=== PATIENT | female | born 1965 | race Caucasian/White ===

== ENCOUNTER 2019-04-03 18:25 | Emergency (ER) | payer MEDICARE, MEDICAID, SELFPAY ==
[2019-04-03 18:28] VITALS: BP 157/92; PULSE 65; RESP 16; TEMP 36.8; O2SAT 97; BMI 30.7
--- NOTE | 2019-04-03 18:37 | CTR_ITS ---
PROCEDURE INFORMATION: Exam: CT Head Without Contrast Exam date and time: 04/03/2019 6:48 PM Age: 53 years old Clinical indication: Weakness, extremity; Left; Additional info: [place] and left arm numbness TECHNIQUE: Imaging protocol: Computed tomography of the head without contrast. Total DLP: 826.82 mGy-cm Radiation optimization: All CT scans at this facility use at least one of these dose optimization techniques: automated exposure control; mA and/or kV adjustment per patient size (includes targeted exams where dose is matched to clinical indication); or iterative reconstruction. COMPARISON: CT head wo con* [id number] 10/02/2017 8:28 AM FINDINGS: Brain: Mild cortical volume loss. Small lacunar infarct in subcortical white matter of the right frontal lobe. Lung hypodensities in supratentorial white matter. Ventricles: Normal. No ventriculomegaly. Bones/joints: Unremarkable. No acute fracture. Sinuses: Visualized sinuses are unremarkable. No fluid levels. Mastoid air cells: Visualized mastoid air cells are well aerated. Soft tissues: Unremarkable. Vasculature: No hyperdense artery. CT/CT head wo con* [id number] IMPRESSION: 1. No acute intracranial abnormality. 2. Mild microangiopathy. Radiation Dose CTDIVOL = (mGy): DLP = 826.82 (mGy-cm)
--- NOTE | 2019-04-03 18:37 | ECG_ITS ---
Measurements Intervals [place] Rate: 60 P: 33 MT: 166 QRS: 20 QRSD: 96 T: 31 QT: 420 QTc: 421 SINUS RHYTHM Compared to ECG 02/27/2016 10:51:11 No significant changes Electronically Signed On 04-04-2019 9:23:46 FINISH SANDER by Chandan Ozuna M.D. [email or web address]
--- NOTE | 2019-04-03 18:37 | XRR_ITS ---
PROCEDURE INFORMATION: Exam: XR Chest, 1 View Exam date and time: 04/03/2019 6:38 PM Age: 53 years old Clinical indication: Shortness of breath; Additional info: Admission TECHNIQUE: Imaging protocol: XR of the chest Views: 1 view. COMPARISON: CR Chest 2 views* [id number] 05/14/2016 9:55 AM FINDINGS: Lungs: Unremarkable. No consolidation. Pleural space: Unremarkable. No pleural effusion. No pneumothorax. Heart/Mediastinum: Unremarkable. No cardiomegaly. Bones/joints: The stimulator lead projects over the mid thoracic spine. C-spine hardware. XR/XR chest 1V portable [id number] IMPRESSION: No acute findings.
--- NOTE | 2019-04-03 18:39 | W.ED.GENADLT ---
HPI - General Adult General: Chief complaint: General Medical Stated complaint: HEADACHE; ABD PAIN; CHEST PAIN Time Seen by Provider: 04/03/19 18:31 History of Present Illness: HPI narrative: Patient arrived via EMS. Patient states she was out walking her dog which was a new dog for her today and came back and was cutting some form out for his bed and then she started to have a headache and got nauseated and felt diaphoretic denies shortness of breath chest pain. Did check her blood pressure blood pressure elevated 140/120. [place] nauseated. Left arm felt numb. Has had the symptoms before with but without being overwhelmed by them. MD complaint: htn Onset (ago): hour(s) Severity: moderate Associated symptoms: Reports diaphoresis and headache(s); Deny chest pain, dyspnea, nausea, rash or vomiting Review of Systems Const: Reports: diaphoresis and other (Weakness); Denies: fever, chills or body aches Eyes: Denies: change in vision or blurry vision ENMT: Denies: throat pain or nasal congestion Card: Reports: lightheadedness and other (Hypertension); Denies: chest pain or shortness of breath on exertion Resp: Denies: shortness of breath, productive cough or non-productive cough GI: Denies: abdominal pain, nausea or vomiting Musc: Denies: extremity pain Skin/Breast: Denies: rash Neuro: Reports: headache and numbness in extremities (Left arm) Psych: Denies: anxiety or depression Lanre/Lymph: Denies: easy bruising PFSH ED PFSH: Statuses (acute, chronic, etc) shown below reflect problem list status as previously entered and may not be historically accurate Family History (Updated 03/16/19 @ 13:23 by Jeff Mart LPN) Mother Hypertension Father Myocardial infarct Social History (Updated 03/16/19 @ 13:24 by Jeff Mart LPN) Smoking and tobacco status: former smoker Quit status (tobacco): has quit using tobacco Alcohol intake: current Alcohol intake frequency: few times a month Physical Exam Const: COMMON NORMALS: no apparent distress, average body habitus and oriented x3 HENMT: COMMON NORMALS: normocephalic HEAD & SCALP: normal to inspection and normocephalic FACE & SINUS: normal facial exam Eye: COMMON NORMALS: conjunctivae normal GENERAL EYE: normal appearance of both eyes CONJUNCTIVA: Yes conjunctivae normal Neck/C-Spine: COMMON NORMALS: no JVD Chest: COMMONS NORMALS: inspection of chest normal Resp: COMMON NORMALS: normal respiratory effort and clear to auscultation bilaterally AUSCULTATION: clear to auscultation bilaterally Cardio: COMMON NORMALS: no JVD, regular rate and regular rhythm RATE: regular rate RHYTHM: regular rhythm GI: COMMON NORMALS: normal to inspection, nondistended, normoactive bowel sounds Extremity: COMMON NORMALS: normal to inspection and full ROM Neuro: COMMON NORMALS: oriented x3, CN's II-XII intact bilaterally, moves all extremities and no sensory deficits noted SPEECH: speech normal MOTOR EXAM: strength 5/5 throughout Course Vital Signs: Vital signs: Vital Signs Temperature 98.2 F 04/03/19 18:28 Pulse Rate 65 04/03/19 18:28 Respiratory Rate 16 04/03/19 18:28 Blood Pressure 157/92 04/03/19 18:28 Pulse Oximetry 97 04/03/19 18:[address] [facility] - General Adult Lab Data: Labs: Lab Results 04/03/19 Range/Units 17:25 WBC 8.8 (4.0-10.0) 10^3/ uL RBC 4.70 (4.1-5.3) 10^6/u L Hgb 12.6 (11.5-15.3) g/dL Hct 38.5 (37.0-47.0) % MCV 81.9 (81-99) fL MCH 26.8 L (28.0-34.0) pg MCHC 32.7 (30.0-36.0) g/dL RDW 13.7 (12.1-15.1) % Plt Count 312 (130-400) 10^3/c mm MPV 11.3 H (7.4-10.4) fL Neut % (Auto) 45.3 % Lymph % (Auto) 45.1 % Hand % (Auto) 6.5 % Eos % (Auto) 1.9 % Baso % (Auto) 0.9 % Neut # (Auto) 4.0 (1.8-7.7) 10^3/u L Lymph # (Auto) 4.0 (0.8-4.8) 10^3/u L Hand # (Auto) 0.6 (0.2-0.9) 10^3/u L Eos # (Auto) 0.2 (0.0-0.8) 10^3/u L Baso # (Auto) 0.1 (0.0-0.1) 10^3/u L Nucleated RBC % (a uto) 0 % Nucleated RBCs # 0.0 /100WBC EKG Data^: EKG 1: EKG interpretation date: 04/03/19 EKG interpretation time: 18:42 Interpretation: NSR Discharge Plan Discharge Prescriptions: No Action gabapentin 300 mg capsule 300 mg PO TID RF: 0 epinephrine [EpiPen 2-Job] 0.3 mg/0.3 mL auto-injector 0.3 mg IM ONCE PRNRF: 0 ranitidine HCl 150 mg capsule 150 mg PO BID RF: 0 fluticasone propionate [Allergy Relief (fluticasone)] 50 mcg/actuation spray,suspension 1 spray INTRANASAL BID RF: 0 ropinirole 0.5 mg tablet 0.5 mg PO ONCE RF: 0 nitroglycerin [Nitrostat] 0.4 mg tablet, sublingual 0.4 mg SUBLINGUAL Q5M PRNRF: 0 sucralfate [Carafate] 1 gram tablet 1 gm PO .COMPLEX RF: 0 celecoxib [Celebrex] 100 mg capsule 100 mg PO BID RF: 0 albuterol sulfate [ProAir HFA] 90 mcg/actuation HFA aerosol inhaler 2 puff INHALATION Q6H PRNRF: 0 metoprolol succinate 25 mg tablet extended release 24 hr 12.5 mg PO BID RF: 0 esomeprazole magnesium 40 mg capsule,delayed release(DR/EC) 40 mg PO ONCE RF: 0 aspirin 325 mg tablet 325 mg PO ONCE RF: 0 venlafaxine 75 mg tablet 75 mg PO ONCE RF: 0 omega-3 fatty acids [Fish Oil Concentrate] 1,000 mg capsule 1,000 mg PO BID RF: 0 tizanidine 4 mg capsule 4 mg PO ONCE PRNRF: 0 hydrocodone-acetaminophen 7.5-325 mg tablet 1 tab PO Q6H PRNRF: 0 montelukast [Singulair] 10 mg tablet 10 mg PO DAILY Qty: 90 RF: 1 Coding Level of Care Code ED 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
[2019-04-03 18:47] LABS: Basophils # 0.1 10^3/uL (0.0-0.1); Basophils % 0.9 %; Eosinophils # 0.2 10^3/uL (0.0-0.8); Eosinophils % 1.9 %; Hematocrit 38.5 % (37.0-47.0); Hemoglobin 12.6 g/dL (11.5-15.3); Lymphocytes % 45.1 %; Mean Corpuscular HGB Conc 32.7 g/dL (30.0-36.0); Mean Corpuscular Hemoglobin 26.8 pg (28.0-34.0); Mean Corpuscular Volume 81.9 fL (81-99); Mean Platelet Volume 11.3 fL (7.4-10.4); Monocytes # 0.6 10^3/uL (0.2-0.9); Monocytes % 6.5 %; Neutrophils % 45.3 %; Nucleated Red Blood Cells % 0 %; Platelet Count 312 10^3/cmm (130-400); Red Cell Distribution Width 13.7 % (12.1-15.1); White Blood Count 8.8 10^3/uL (4.0-10.0)
--- NOTE | 2019-04-03 19:27 | PC.NURSE ---
PT WAITING CT RESULTS. URINE SAMPLE TAKEN TO LAB.
[2019-04-03] MEDS: acetaminophen 500 mg Tablet 1000 MG PO (19:31)
[2019-04-03 20:22] LABS: Glucose Urine UA Norm (Normal); Protein Urine Trace (Negative); Urine Appearance Cloudy (CLEAR); Urine Color Yellow (Yellow); pH Urine 5 (5-7)
[2019-04-03 20:23] LABS: Add Urine Microscopic? YES; Bilirubin Urine 1+ (NEGATIVE); Blood Urine Neg (Negative); Ketones Urine Negative (Negative); Leukocyte Esterase Urine Negative (Negative); Nitrate Urine Negative (Negative); Urobilinogen Urine 1 mg/dL (Negative)
[2019-04-03] MEDS: diphenhydrAMINE 50 mg/mL SDV 1mL 25 MG IVP (20:25)
[2019-04-03 20:26] LABS: Add Urine Culture? No; Bacteria Urine 1+; Mucus Urine 2+; Squamous Epithelial Cell Urine 0-4 (0-5); WBC Urine 0-4 /hpf (0-5)
[2019-04-03] MEDS: metoclopramide 5 mg/mL SDV 2 mL IVP (20:26)
[2019-04-03 20:27] LABS: Alanine Aminotransferase 30 U/L (0-33); Albumin Level 4.6 g/dL (3.5-5.2); Alkaline Phosphatase 129 IU/L (35-105); Anion Gap 17.3 (5-19); Aspartate Amino Transferase 31 U/L (0-32); Blood Urea Nitrogen 8 mg/dL (6-20); Calcium 10.1 mg/Dl (8.6-10.0); Carbon Dioxide 23 mmol/L (22-29); Chloride 103 mmol/L (98-107); Globulin 2.2 g/dL (1.3-4.6); Glomerular Filtration Rate 88.2 mL/min (90-130); Glucose 99 mg/dL (74-109); Lipase 18 U/L (13-60); Potassium 3.3 mmol/L (3.5-5.1); Sodium 140 mmol/L (136-145); Total Bilirubin 0.4 mg/dL (0.15-1.2); Total Protein 6.8 g/dL (6.6-8.7)
[2019-04-03 20:46] LABS: Troponin T (5th) Once 10 ng/mL (0-10)
[2019-04-03 21:08] VITALS: BP 122/83; PULSE 87; RESP 18; O2SAT 97
== END 2019-04-03 21:09 | disposition home or self-care (01) ==
PROVIDERS: Emergency Provider Nurse Practitioner Family; Family Provider Registered Nurse; PCP Registered Nurse
DX: R51 Headache (principal); R10.9 Unspecified abdominal pain; R07.9 Chest pain, unspecified; Z79.82 Long term (current) use of aspirin; Z87.891 Personal history of nicotine dependence
CPT/HCPCS: 70450; 71045; 80053; 81003; 83690; 84484; 85025; 93005; 96374; 99281; A9270; J1200; J2765

== ENCOUNTER → 2019-04-07 09:05 | Outpatient (BNVA) | payer MEDICARE, MEDICAID, SELFPAY | PROVIDERS: Family Provider Registered Nurse; PCP Registered Nurse; Visit Provider Nurse Practitioner Family | DX: E87.6 Hypokalemia (principal) | CPT/HCPCS: 80048 ==

== ENCOUNTER → 2019-05-10 09:31 | Outpatient (BNVA) | payer MEDICARE, MEDICAID, SELFPAY | PROVIDERS: Family Provider Registered Nurse; PCP Registered Nurse; Visit Provider Nurse Practitioner Psychiatric/Mental Health | DX: F33.2 Major depressive disorder, recurrent severe without psychotic features (principal); F41.0 Panic disorder [episodic paroxysmal anxiety]; F43.12 Post-traumatic stress disorder, chronic; Z79.899 Other long term (current) drug therapy | CPT/HCPCS: 80053; 80061; 83036; 84443; 85025; 99214 ==

== ENCOUNTER → 2019-07-07 08:20 | Outpatient (BNVA) | payer MEDICARE, MEDICAID, SELFPAY | PROVIDERS: Family Provider Registered Nurse; PCP Registered Nurse; Visit Provider Nurse Practitioner Psychiatric/Mental Health | DX: F33.2 Major depressive disorder, recurrent severe without psychotic features (principal); F41.0 Panic disorder [episodic paroxysmal anxiety]; F43.12 Post-traumatic stress disorder, chronic; Z63.79 Other stressful life events affecting family and household | CPT/HCPCS: 99214 ==

== ENCOUNTER → 2019-08-04 07:40 | Outpatient (BNVA) | payer MEDICARE, MEDICAID, SELFPAY | PROVIDERS: Family Provider Registered Nurse; PCP Registered Nurse; Visit Provider Nurse Practitioner Psychiatric/Mental Health | DX: F33.2 Major depressive disorder, recurrent severe without psychotic features (principal); F41.0 Panic disorder [episodic paroxysmal anxiety]; F43.12 Post-traumatic stress disorder, chronic; Z63.79 Other stressful life events affecting family and household; Z91.5 Personal history of self-harm | CPT/HCPCS: 99214 ==

== ENCOUNTER → 2019-08-23 08:12 | Outpatient (BNVA) | payer MEDICARE, MEDICAID, SELFPAY | PROVIDERS: Family Provider Registered Nurse; PCP Registered Nurse; Visit Provider Social Worker Clinical | DX: F33.2 Major depressive disorder, recurrent severe without psychotic features (principal); F40.01 Agoraphobia with panic disorder | CPT/HCPCS: 90791 ==

== ENCOUNTER → 2019-09-06 08:08 | Outpatient (BNVA) | payer MEDICARE, MEDICAID, SELFPAY | PROVIDERS: Family Provider Registered Nurse; PCP Registered Nurse; Visit Provider Social Worker Clinical | DX: F43.12 Post-traumatic stress disorder, chronic (principal); F41.0 Panic disorder [episodic paroxysmal anxiety]; F33.2 Major depressive disorder, recurrent severe without psychotic features; Z91.5 Personal history of self-harm | CPT/HCPCS: 90834 ==

== ENCOUNTER → 2019-09-15 08:26 | Outpatient (BNVA) | payer MEDICARE, MEDICAID, SELFPAY | PROVIDERS: Family Provider Registered Nurse; PCP Registered Nurse; Visit Provider Social Worker Clinical | DX: F43.12 Post-traumatic stress disorder, chronic (principal); F41.0 Panic disorder [episodic paroxysmal anxiety]; F33.2 Major depressive disorder, recurrent severe without psychotic features | CPT/HCPCS: 90834 ==

== ENCOUNTER → 2019-10-12 08:09 | Outpatient (BNVA) | payer MEDICARE, MEDICAID, SELFPAY | PROVIDERS: Family Provider Registered Nurse; PCP Registered Nurse; Visit Provider Social Worker Clinical | DX: F43.12 Post-traumatic stress disorder, chronic (principal); F41.0 Panic disorder [episodic paroxysmal anxiety]; F33.2 Major depressive disorder, recurrent severe without psychotic features | CPT/HCPCS: 90834 ==

== ENCOUNTER → 2020-04-11 10:29 | Outpatient (BNVA) | payer MEDICARE, MEDICAID, SELFPAY | PROVIDERS: Family Provider Registered Nurse; PCP Registered Nurse; Visit Provider Registered Nurse | DX: R30.0 Dysuria (principal); A49.9 Bacterial infection, unspecified; N39.0 Urinary tract infection, site not specified; N89.8 Other specified noninflammatory disorders of vagina; B37.3 Candidiasis of vulva and vagina | CPT/HCPCS: 81000; 87077; 87086; 87184 ==

== ENCOUNTER → 2020-05-18 11:20 | Outpatient (BNVA) | payer MEDICARE, MEDICAID, SELFPAY | PROVIDERS: Family Provider Registered Nurse; PCP Registered Nurse; Visit Provider Specialist | DX: G43.709 Chronic migraine without aura, not intractable, without status migrainosus (principal); Z87.891 Personal history of nicotine dependence | CPT/HCPCS: 99204 ==

== ENCOUNTER → 2020-05-30 07:37 | Outpatient (BNVA) | payer MEDICARE, MEDICAID, SELFPAY | PROVIDERS: Family Provider Registered Nurse; PCP Registered Nurse; Visit Provider Nurse Practitioner Psychiatric/Mental Health | DX: F33.2 Major depressive disorder, recurrent severe without psychotic features (principal); F41.0 Panic disorder [episodic paroxysmal anxiety]; F43.12 Post-traumatic stress disorder, chronic; F17.210 Nicotine dependence, cigarettes, uncomplicated; Z91.5 Personal history of self-harm; Z79.899 Other long term (current) drug therapy | CPT/HCPCS: 99214 ==

== ENCOUNTER → 2020-06-15 14:35 | Outpatient (BNVA) | payer MEDICARE, MEDICAID, SELFPAY | PROVIDERS: Family Provider Registered Nurse; PCP Registered Nurse; Visit Provider Social Worker Clinical | DX: F43.12 Post-traumatic stress disorder, chronic (principal); F41.0 Panic disorder [episodic paroxysmal anxiety]; F33.2 Major depressive disorder, recurrent severe without psychotic features | CPT/HCPCS: 90834 ==

== ENCOUNTER → 2020-06-27 07:34 | Outpatient (BNVA) | payer MEDICARE, MEDICAID, SELFPAY | PROVIDERS: Family Provider Registered Nurse; PCP Registered Nurse; Visit Provider Nurse Practitioner Psychiatric/Mental Health | DX: F33.2 Major depressive disorder, recurrent severe without psychotic features (principal); F41.0 Panic disorder [episodic paroxysmal anxiety]; F43.12 Post-traumatic stress disorder, chronic; F17.210 Nicotine dependence, cigarettes, uncomplicated; Z91.5 Personal history of self-harm; Z79.899 Other long term (current) drug therapy | CPT/HCPCS: 99214 ==

== ENCOUNTER → 2020-07-20 10:25 | Outpatient (BNVA) | payer MEDICARE, MEDICAID, SELFPAY | PROVIDERS: Family Provider Registered Nurse; PCP Registered Nurse; Visit Provider Nurse Practitioner Psychiatric/Mental Health | DX: Z79.899 Other long term (current) drug therapy (principal); Z01.89 Encounter for other specified special examinations | CPT/HCPCS: 80053; 80061; 83036 ==

== ENCOUNTER → 2020-07-25 10:44 | Outpatient (BNVA) | payer MEDICARE, MEDICAID, SELFPAY | PROVIDERS: Family Provider Registered Nurse; PCP Registered Nurse; Visit Provider Social Worker Clinical | DX: F33.2 Major depressive disorder, recurrent severe without psychotic features (principal); F41.0 Panic disorder [episodic paroxysmal anxiety]; F43.12 Post-traumatic stress disorder, chronic | CPT/HCPCS: 90834 ==

== ENCOUNTER → 2020-08-21 12:40 | Outpatient (BNVA) | payer MEDICARE, MEDICAID, SELFPAY | PROVIDERS: Family Provider Registered Nurse; PCP Registered Nurse; Visit Provider Social Worker Clinical | DX: F43.12 Post-traumatic stress disorder, chronic (principal); F33.2 Major depressive disorder, recurrent severe without psychotic features; F40.01 Agoraphobia with panic disorder | CPT/HCPCS: 90791 ==

== ENCOUNTER → 2020-08-22 08:20 | Outpatient (BNVA) | payer MEDICARE, MEDICAID, SELFPAY | PROVIDERS: Family Provider Registered Nurse; PCP Registered Nurse; Visit Provider Nurse Practitioner Psychiatric/Mental Health | DX: F33.2 Major depressive disorder, recurrent severe without psychotic features (principal); F41.0 Panic disorder [episodic paroxysmal anxiety]; F43.12 Post-traumatic stress disorder, chronic; Z91.5 Personal history of self-harm; Z79.899 Other long term (current) drug therapy; F17.210 Nicotine dependence, cigarettes, uncomplicated | CPT/HCPCS: 99214 ==

== ENCOUNTER → 2020-09-26 07:16 | Outpatient (BNVA) | payer MEDICARE, MEDICAID, SELFPAY | PROVIDERS: Family Provider Registered Nurse; PCP Registered Nurse; Visit Provider Nurse Practitioner Psychiatric/Mental Health | DX: F33.2 Major depressive disorder, recurrent severe without psychotic features (principal); F41.0 Panic disorder [episodic paroxysmal anxiety]; F43.12 Post-traumatic stress disorder, chronic; F17.210 Nicotine dependence, cigarettes, uncomplicated; Z91.5 Personal history of self-harm; Z79.899 Other long term (current) drug therapy | CPT/HCPCS: 99214 ==

== ENCOUNTER → 2021-03-27 08:15 | Outpatient (BNVA) | payer MEDICARE, MEDICAID, SELFPAY | PROVIDERS: Family Provider Registered Nurse; PCP Registered Nurse; Visit Provider Nurse Practitioner Psychiatric/Mental Health | DX: F33.2 Major depressive disorder, recurrent severe without psychotic features (principal); F41.0 Panic disorder [episodic paroxysmal anxiety]; F43.12 Post-traumatic stress disorder, chronic; F17.210 Nicotine dependence, cigarettes, uncomplicated | CPT/HCPCS: 99214 ==

== ENCOUNTER → 2021-05-01 08:27 | Outpatient (BNVA) | payer MEDICARE, MEDICAID, SELFPAY | PROVIDERS: Family Provider Registered Nurse; PCP Registered Nurse; Visit Provider Nurse Practitioner Psychiatric/Mental Health | DX: F33.2 Major depressive disorder, recurrent severe without psychotic features (principal); F41.0 Panic disorder [episodic paroxysmal anxiety]; F43.12 Post-traumatic stress disorder, chronic; F17.210 Nicotine dependence, cigarettes, uncomplicated | CPT/HCPCS: 99214 ==

== ENCOUNTER → 2021-06-07 09:39 | Outpatient (BNVA) | payer MEDICARE, MEDICAID, SELFPAY | PROVIDERS: Family Provider Registered Nurse; PCP Registered Nurse; Visit Provider Registered Nurse | DX: R10.9 Unspecified abdominal pain (principal); N20.0 Calculus of kidney | CPT/HCPCS: 81000 ==

== ENCOUNTER 2021-06-11 07:57 | Outpatient (CLI) | payer MEDICARE, MEDICAID, SELFPAY ==
--- NOTE | 2021-06-11 08:30 | CT_ITS ---
WS: [id number] CT ABDOMEN PELVIS TECHNIQUE: Noncontrast CT of the abdomen and pelvis with coronal and sagittal reformatted images. CLINICAL INFORMATION: N20.0 - Calculus of kidney COMPARISON: CT 4 DLP: 1085.[address] scans at [facility] use at least one of these dose optimization techniques: automated e xposure control; mA and/or kV adjustment per patient size (includes targeted exams where dose is matc hed to clinical indication); or iterative reconstruction. FINDINGS: Noncontrast liver is normal. Prior cholecystectomy. Lung bases are well aerated. Normal noncontrast s pleen. Small esophageal hiatal hernia. Adrenal glands are normal. No hydronephrosis in either kidney. No obstructing renal or ureteral calculi. Pelvic phleboliths. RIGHT ALBERT degrades some images in the pelvis. Normal sigmoid colon. Normal appendix in the RIGHT lowe r quadrant. Inspissated secretions in the proximal appendix. Bony fusion L5-S1. Slight anterolisthesis L4 on L5. Posterior element fusion L5-S1. CT/CT kidney stone [id number] IMPRESSION: 1. No obstructing renal or ureteral calculi. No hydronephrosis in either kidne y. 2. Prior cholecystectomy. 3. Normal caliber abdominal aorta. 4. Small esophageal hiatal hernia. 5. Prior postoperative changes posterior element fusion L5-S1. Grade 1 anterol isthesis L4 on L5 measuring 4 mm increased compared to 2008.
== END 2021-06-11 07:58 | disposition home or self-care (01) ==
PROVIDERS: PCP Registered Nurse; Visit Provider Registered Nurse
DX: N20.0 Calculus of kidney (principal); Z90.49 Acquired absence of other specified parts of digestive tract; K44.9 Diaphragmatic hernia without obstruction or gangrene
CPT/HCPCS: 74176

== ENCOUNTER → 2021-06-12 14:44 | Outpatient (BNVA) | payer MEDICARE, MEDICAID, SELFPAY | PROVIDERS: Family Provider Registered Nurse; PCP Registered Nurse; Visit Provider Nurse Practitioner Psychiatric/Mental Health | DX: F33.2 Major depressive disorder, recurrent severe without psychotic features (principal); F41.0 Panic disorder [episodic paroxysmal anxiety]; F43.12 Post-traumatic stress disorder, chronic; F17.210 Nicotine dependence, cigarettes, uncomplicated | CPT/HCPCS: 99214 ==

== ENCOUNTER 2021-06-21 14:34 | Outpatient (CLI) | payer MEDICARE, MEDICAID, SELFPAY ==
--- NOTE | 2021-06-21 14:44 | MM_ITS ---
WS: [id number] BILATERAL SCREENING 3D TOMOSYNTHESIS DIGITAL MAMMOGRAM WITH CAD HISTORY: SCREENING COMPARISON: 02/04/2019 and 11/25/2016 Bilateral CC and MLO views submitted. Computer aided detection analyzed. Breast composition: The breasts are extremely dense, which lowers the sensitivity of mammography. No suspicious masses, microcalcifications or architectural distortion. Asymmetries and partially obscure d nodules are stable throughout each breast. There are benign calcifications also. MM/[place] [id number] IMPRESSION: BI-RADS: 2-Benign FOLLOW UP: 1 Year Follow-up
== END 2021-06-21 14:35 | disposition home or self-care (01) ==
LOC: RADSHAW 14:37
PROVIDERS: PCP Registered Nurse; Visit Provider Registered Nurse
DX: Z12.31 Encounter for screening mammogram for malignant neoplasm of breast (principal)
CPT/HCPCS: 77063; 77067

== ENCOUNTER → 2021-07-10 09:28 | Outpatient (BNVA) | payer MEDICARE, MEDICAID, SELFPAY | PROVIDERS: PCP Registered Nurse; Visit Provider Nurse Practitioner Family | DX: I47.1 Supraventricular tachycardia (principal); I10 Essential (primary) hypertension; Q24.5 Malformation of coronary vessels; Z87.891 Personal history of nicotine dependence; Z79.82 Long term (current) use of aspirin | CPT/HCPCS: 93005; 99214 ==

== ENCOUNTER → 2021-08-21 13:46 | Outpatient (BNVA) | payer MEDICARE, MEDICAID, SELFPAY | PROVIDERS: PCP Registered Nurse; Referring Provider Registered Nurse; Visit Provider Podiatrist Foot & Ankle Surgery | DX: M21.611 Bunion of right foot (principal); M21.612 Bunion of left foot; M20.41 Other hammer toe(s) (acquired), right foot; R20.2 Paresthesia of skin; M20.42 Other hammer toe(s) (acquired), left foot; M79.671 Pain in right foot; M79.672 Pain in left foot | CPT/HCPCS: 73630; 82607; 99204 ==

== ENCOUNTER → 2021-09-11 13:00 | Outpatient (BNVA) | payer MEDICARE, MEDICAID, SELFPAY | PROVIDERS: PCP Registered Nurse; Visit Provider Podiatrist Foot & Ankle Surgery | DX: R20.2 Paresthesia of skin (principal); M21.611 Bunion of right foot; M21.612 Bunion of left foot; M20.41 Other hammer toe(s) (acquired), right foot; M20.42 Other hammer toe(s) (acquired), left foot | CPT/HCPCS: 99213 ==

== ENCOUNTER → 2021-10-31 10:33 | Outpatient (BNVA) | payer MEDICARE, MEDICAID, SELFPAY | PROVIDERS: PCP Registered Nurse; Referring Provider Podiatrist Foot & Ankle Surgery; Visit Provider Specialist | DX: G62.89 Other specified polyneuropathies (principal) | CPT/HCPCS: 95909; 95911 ==

== ENCOUNTER → 2021-12-12 14:22 | Outpatient (BNVA) | payer MEDICARE, MEDICAID, SELFPAY | PROVIDERS: PCP Registered Nurse; Visit Provider Podiatrist Foot & Ankle Surgery | DX: M21.611 Bunion of right foot (principal); M21.612 Bunion of left foot; M20.41 Other hammer toe(s) (acquired), right foot; M20.42 Other hammer toe(s) (acquired), left foot; R20.2 Paresthesia of skin | CPT/HCPCS: 99214 ==

== ENCOUNTER 2021-12-15 11:13 | Emergency (ER) | payer MEDICARE, MEDICAID, SELFPAY ==
[2021-12-15 11:25] VITALS: PULSE 59; RESP 16; TEMP 36.2; O2SAT 100
--- NOTE | 2021-12-15 11:54 | XRR_ITS ---
PROCEDURE INFORMATION: Exam: XR Right Ankle Exam date and time: 12/15/2021 12:25 PM Age: 56 years old Clinical indication: Injury or trauma; Fall; Blunt trauma; Ankle; Right TECHNIQUE: Imaging protocol: Radiologic exam of the Right ankle. Views: 1 or 2 views. COMPARISON: No relevant prior studies available. FINDINGS: Bones/joints: Enthesophytes are present off the os calcis at the Achilles insertion and plantar fascia origin. Soft tissues: There are benign-appearing soft tissue calcifications. Ossified density in the soft tissues between the lateral malleolus and talus likely represent sequela of chronic injury. No acute fracture visualized. There is edema in the soft tissues. XR/XR ankle RT 2V [id number] IMPRESSION: 1. Ossified density in the soft tissues between the lateral malleolus and talus likely represent sequela of chronic injury. No acute fracture visualized. 2. Enthesophytes are present off the os calcis at the Achilles insertion and plantar fascia origin. 3. There is edema in the soft tissues.
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
[2021-12-15] MEDS: iohexol 350 mg/mL 100 mL Btl IV (12:21)
== END 2021-12-15 13:54 | disposition home or self-care (01) ==
PROVIDERS: Emergency Provider Emergency Medicine; PCP Registered Nurse
DX: S93.401A Sprain of unspecified ligament of right ankle, initial encounter (principal); S96.911A Strain of unspecified muscle and tendon at ankle and foot level, right foot, initial encounter; Z79.1 Long term (current) use of non-steroidal anti-inflammatories (NSAID); I10 Essential (primary) hypertension; F17.210 Nicotine dependence, cigarettes, uncomplicated; W01.0XXA Fall on same level from slipping, tripping and stumbling without subsequent striking against object, initial encounter
CPT/HCPCS: 73600; 99283; Q9967

== ENCOUNTER → 2021-12-25 09:05 | Outpatient (BNVA) | payer MEDICARE, MEDICAID, SELFPAY | PROVIDERS: PCP Registered Nurse; Visit Provider Orthopaedic Surgery | DX: M43.16 Spondylolisthesis, lumbar region (principal); M54.2 Cervicalgia; Z96.82 Presence of neurostimulator; Z98.1 Arthrodesis status | CPT/HCPCS: 72040; 72070; 72100; 99204 ==

== ENCOUNTER → 2021-12-31 11:04 | Outpatient (BNVA) | payer MEDICARE, MEDICAID, SELFPAY | PROVIDERS: PCP Registered Nurse; Visit Provider Podiatrist Foot & Ankle Surgery | DX: W01.0XXA Fall on same level from slipping, tripping and stumbling without subsequent striking against object, initial encounter (principal); S82.831A Other fracture of upper and lower end of right fibula, initial encounter for closed fracture | CPT/HCPCS: 73610; 99213 ==

== ENCOUNTER 2021-12-31 15:03 | Outpatient (CLI) | payer MEDICARE, MEDICAID, SELFPAY | END 2021-12-31 15:04 | disposition home or self-care (01) | LOC: SPT 15:05 | PROVIDERS: PCP Registered Nurse; Visit Provider Podiatrist Foot & Ankle Surgery | DX: Z46.89 Encounter for fitting and adjustment of other specified devices (principal); M25.571 Pain in right ankle and joints of right foot | CPT/HCPCS: 97760; 99214; L4361 ==

== ENCOUNTER → 2022-01-07 14:38 | Outpatient (BNVA) | payer MEDICARE, MEDICAID, SELFPAY | PROVIDERS: PCP Registered Nurse; Visit Provider Internal Medicine Cardiovascular Disease | DX: I47.1 Supraventricular tachycardia (principal); I10 Essential (primary) hypertension; F17.200 Nicotine dependence, unspecified, uncomplicated | CPT/HCPCS: 93005; 99214 ==

== ENCOUNTER → 2022-01-15 10:40 | Outpatient (BNVA) | payer MEDICARE, MEDICAID, OTHER, SELFPAY | PROVIDERS: PCP Registered Nurse; Visit Provider Nurse Practitioner Psychiatric/Mental Health | DX: F33.2 Major depressive disorder, recurrent severe without psychotic features (principal); F41.0 Panic disorder [episodic paroxysmal anxiety]; F43.12 Post-traumatic stress disorder, chronic; F17.210 Nicotine dependence, cigarettes, uncomplicated; Z79.899 Other long term (current) drug therapy | CPT/HCPCS: 80053; 80061; 83036 ==

== ENCOUNTER → 2022-01-17 13:55 | Outpatient (BNVA) | payer MEDICARE, MEDICAID, SELFPAY | PROVIDERS: PCP Registered Nurse; Visit Provider Podiatrist Foot & Ankle Surgery | DX: S82.831A Other fracture of upper and lower end of right fibula, initial encounter for closed fracture (principal); W19.XXXA Unspecified fall, initial encounter | CPT/HCPCS: 73610; 99214 ==

== ENCOUNTER → 2022-02-05 11:18 | Outpatient (BNVA) | payer MEDICARE, MEDICAID, SELFPAY | PROVIDERS: PCP Registered Nurse; Visit Provider Podiatrist Foot & Ankle Surgery | DX: X58.XXXA Exposure to other specified factors, initial encounter (principal); S82.831A Other fracture of upper and lower end of right fibula, initial encounter for closed fracture | CPT/HCPCS: 73610 ==

== ENCOUNTER 2022-02-05 15:19 | Outpatient (CLI) | payer MEDICARE, MEDICAID, SELFPAY | END 2022-02-05 15:20 | disposition home or self-care (01) | LOC: SPT 15:19 | PROVIDERS: PCP Registered Nurse; Visit Provider Podiatrist Foot & Ankle Surgery | DX: Z46.89 Encounter for fitting and adjustment of other specified devices (principal); S82.831D Other fracture of upper and lower end of right fibula, subsequent encounter for closed fracture with routine healing; X58.XXXD Exposure to other specified factors, subsequent encounter | CPT/HCPCS: 97760; 99214; L1902 ==

== ENCOUNTER 2022-02-18 09:44 | Outpatient (CLI) | payer MEDICARE, MEDICAID, SELFPAY ==
--- NOTE | 2022-02-18 10:00 | IR_ITS ---
WS: [id number] MYELOGRAM CERVICAL AND LUMBAR SPINE Fluoroscopic guided cervical and lumbar myelogram CLINICAL INFORMATION: hx of cervical fusion, LUMBAR BACK PAIN COMPARISON: Myelogram lumbar 1 TECHNIQUE: The procedure, including risks, benefits, and complications, were discussed with the patie nt who agreed to proceed. A timeout was performed to confirm correct patient, procedure, and site. Using sterile technique, the patient was prepped and draped in the usual sterile fashion. After admin istration of local anesthesia using 1% preservative-free lidocaine and using fluoroscopic guidance, a 22-gauge spinal needle was advanced into the subarachnoid space at the L2-L3 level. Subsequently 13 cc of Omnipaque 240 was administered into the thecal sac. The needle was removed and hemostasis was a chieved. Subsequently the table was tilted down and contrast flowed freely into the cervical spine. S pot fluoroscopic images were obtained. FLUOROSCOPIC TIME: 3min [id number] # of spot films: 3 Spot fluoroscopic images demonstrate mild lumbar curve. Postoperative changes laminectomies lower lum bar spine. Cholecystectomy clips. Screw fixation S1 posteriorly. Grade 1 anterolisthesis L4 on L5. In terbody bony fusion L5-S1. Prior postoperative changes anterior cervical fusion C5-C6 with solid-appearing interbody fusion. Dis c space narrowing worse at C6-C7 in the cervical spine. Partially visualized spinal stimulator. Moder ate thoracic kyphosis. IR/IR myelogram spine cervic/lumb IMPRESSION: 1. Uncomplicated lumbar and cervical myelogram. 2. Please see CT myelogram report for additional detail.
--- NOTE | 2022-02-18 10:00 | CT_ITS ---
WS: [id number] CT LUMBAR SPINE TECHNIQUE: Contrast-enhanced CT of the lumbar spine with coronal and sagittal reformatted images. CLINICAL INFORMATION: hx of lumbar facet fusion/back pain COMPARISON: CT myelogram 2014 DLP: 1453.[address] scans at [facility] use at least one of these dose optimization techniques: automated e xposure control; mA and/or kV adjustment per patient size (includes targeted exams where dose is matc hed to clinical indication); or iterative reconstruction. FINDINGS: Mild lumbar curve. No acute compression. Slight anterolisthesis L4 on L5. Interbody bony fusion L5-S1 appears solid. Posterior fixation screws S1. L1-L2: Mild facet arthropathy. Spinal canal and foramen are patent. L2-L3: Mild annular bulging. Slight effacement of the ventral thecal sac. Mild facet arthropathy. Spi nal canal and foramen are patent. L3-L4: Mild annular bulging with moderate to severe central canal stenosis. Impingement on the subart icular recess bilaterally. Redundancy of the cauda equina nerve rootlets at this level. Advanced face t arthropathy with ligamentum flavum flavum hypertrophy. Moderate RIGHT and mild LEFT bony foraminal narrowing. L4-L5: Grade 1 anterolisthesis. Mild central canal stenosis. Impingement subarticular recess and aidee ersing L5 nerve roots bilaterally. Advanced Facet arthropathy. Grade 1 anterolisthesis. Impingement o n the RIGHT greater than LEFT subarticular recess. Moderate RIGHT and mild LEFT bony foraminal narrow ing. Advanced facet arthropathy. L5-S1: Mild RIGHT and no LEFT foraminal narrowing. Advanced facet arthropathy. Posterior screw fixati on. Visualized pelvic bony structures: Normal. Paravertebral soft tissues: Normal. CT/CT lumbar spine w con [id number] IMPRESSION: 1. Mild lumbar curve. No acute compression. 2. Stable anterolisthesis L4 on L5. Solid appearing interbody bony fusion L5-S 1. 3. Moderate to severe central canal stenosis L3-L4 progressed compared to 2017 myelogram. Redundancy of the cauda equina nerve rootlets at this level. Imping ement on the traversing L4 nerve roots bilaterally. 4. Mild central canal stenosis L4-L5 with impingement on the RIGHT greater steffi n LEFT traversing L5 nerve roots with advanced facet arthropathy at this level. 5. Moderate RIGHT L3-L4 and L4-L5 foraminal narrowing appears progressed jean red to previous. 6. Advanced facet arthropathy L3-L4 L4-L5. 7. Evidence of prior hemilaminectomies RIGHT L5-S1.
--- NOTE | 2022-02-18 11:07 | CT_ITS ---
WS: [id number] CT CERVICAL MYELOGRAM TECHNIQUE: CT of the cervical spine coronal and sagittal reformatted images post intrathecal administ ration of contrast. CLINICAL INFORMATION: hx of cervical fusion, neck pain COMPARISON: CT 11 ,019 DLP: 487.[address] scans at [facility] use at least one of these dose optimization techniques: automated e xposure control; mA and/or kV adjustment per patient size (includes targeted exams where dose is matc hed to clinical indication); or iterative reconstruction. FINDINGS: Straightening of the normal cervical lordosis with slight reversal. Prior postoperative changes anter ior cervical fusion C5-C6 appears solid. No evidence of screw loosening. Hardware appears intact. No high-grade central canal stenosis. Lung apices are well aerated. Mastoid air cells and paranasal sinuses are well aerated. Normal clinical transformation specialist ior nasopharynx. Normal parapharyngeal fat. C2-C3: No significant disc bulging. Spinal canal and foramen are patent. C3-C4: Mild facet arthropathy worse in the LEFT. Mild LEFT bony foraminal narrowing. Spinal canal and RIGHT foramen are patent. C4-C5: Mild facet arthropathy. Spinal canal and foramen are patent. Asymmetric LEFT facet arthropathy . Disc osteophytic ridging. Foramen are patent. Moderate facet arthropathy worse in the LEFT. C5-C6: Postoperative changes ACDF. Mild LEFT and no significant RIGHT bony foraminal narrowing. Mild facet arthropathy. Spinal canal is patent. C6-C7: Disc osteophytic ridging. Moderate to severe LEFT and mild RIGHT bony foraminal narrowing. Mil d to moderate facet arthropathy. Mild central canal stenosis with tiny central disc osteophyte protru kimberlee. C7-T1: Mild to moderate LEFT bony foraminal narrowing. Moderate facet arthropathy worse in the LEFT. Spinal canal is patent. Visualized posterior fossa structures: Normal. CT/CT cervical spine w con [id number] IMPRESSION: 1. Straightening of the normal cervical lordosis. Prior postoperative changes ACDF C5-C6 appears solid. 2. Evidence of bony bridging with solid-appearing interbody bony fusion C5-C6. 3. Tiny central disc osteophyte protrusion C6-C7 with mild central canal steno sis. Moderate to severe LEFT bony foraminal narrowing at this level. 4. Mild to moderate LEFT C7-T1 bony foraminal narrowing. 5. Mild to moderate facet arthropathy worse at LEFT C4-C5, and LEFT C7-T1. 6. Osteophytic ridging with mild LEFT C5-C6 bony foraminal narrowing.
[2022-02-18] MEDS: iohexol 240 mg/mL 50 mL Btl INTRATHECA (11:08)
== END 2022-02-18 09:45 | disposition home or self-care (01) ==
LOC: RAD 09:46
PROVIDERS: PCP Registered Nurse; Visit Provider Orthopaedic Surgery
DX: M54.2 Cervicalgia (principal)
CPT/HCPCS: 62305; 72126; 72132; Q9966

== ENCOUNTER → 2022-02-26 10:21 | Outpatient (BNVA) | payer MEDICARE, MEDICAID, SELFPAY | PROVIDERS: PCP Registered Nurse; Visit Provider Orthopaedic Surgery | DX: M47.22 Other spondylosis with radiculopathy, cervical region (principal); M43.16 Spondylolisthesis, lumbar region; Z98.1 Arthrodesis status | CPT/HCPCS: 99214 ==

== ENCOUNTER → 2022-03-25 12:59 | Outpatient (BNVA) | payer MEDICARE, MEDICAID, SELFPAY | PROVIDERS: PCP Registered Nurse; Visit Provider Podiatrist Foot & Ankle Surgery | DX: S82.831A Other fracture of upper and lower end of right fibula, initial encounter for closed fracture (principal); X58.XXXA Exposure to other specified factors, initial encounter | CPT/HCPCS: 73610; 99214 ==

== ENCOUNTER 2022-04-05 05:51 | Day surgery (SDC) | payer MEDICARE, MEDICAID, SELFPAY ==
[2022-03-26 08:08] VITALS: BMI 31.4
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
[2022-04-05] VITALS (17 sets, daily range): BP systolic 119–169; BP diastolic 74–92; PULSE 42–102; RESP 12–21; TEMP 36.1–37; O2SAT 90–100
--- NOTE | 2022-04-05 | XR_ITS ---
WS: [id number] XR cervical spine 3V* [id number] REASON FOR EXAM: ACDF C6-7 FINDINGS: Anterior plate and screw fixation C5-C7 with intervening corpectomy and fusion device placement C5-C7 . Anterior oblique screws with interbody fusion device at C7-T1. Cervical alignment and position of surgical appliances appropriate. XR/XR cervical spine 3V* [id number] IMPRESSION: Anterior fusions in the cervical spine as described above without abnormality.
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
[2022-04-05] MEDS: sodium chloride 0.9% 1,000 ML 30 ML IV (06:35)
[2022-04-05] MEDS: ceFAZolin 2,000 MG in sodium chloride 0.9% (plus) 50 ML 100 MG IV (07:00)
--- NOTE | 2022-04-05 07:47 | P.ANESUD_ITS ---
Pre-Anesthetic Update Pre-Anesthetic Assessment: Date of Surgery/Procedure: 04/05/22 Preop Agatha gnosis: Cervical spondylosis with radiculopathy Proposed Procedure: Operation Date: 04/05/22 07:00 Proposed Procedures p Anterior Cervical Discectomy & Fusion C6-7 22514/[id number]/17053/67440/71628/M47.22(Not Applicable) - Alexi Rodriguez, DO Any changes to Pre-Anesthetic Assessment?: No Last Intake: Intake Last Liquid Date 04/04/22 Last Liquid Time 23:59 Last Solid Date 04/04/22 Last Solid Time 21:30 Vitals: Temperature 98.6 F 04/05/22 06:10 Temperature Source Tympanic 04/05/22 06:10 Pulse Rate 56 L 04/05/22 06:10 Respiratory Rate 18 04/05/22 06:10 Blood Pressure 130/79 04/05/22 06:10 Blood Pressure Jacquelyn n 96 04/05/22 06:10 Pulse Oximetry 99 04/05/22 06:10 Oxygen Delivery Me thod 04/05/22 06:18 Exam: Pre-Anes Outpt Exam: alert, oriented x 3, clear to auscultation bilaterally and regular rate & rhythm Cardiac Studies: No Data to Display
--- NOTE | 2022-04-05 08:59 | SUR.PHASEI ---
0845 PT TO PACU 2 PT AWAKES AND MOVES ALL EXTREMITIES, PT RESTLESS, PULLING AND CLOTHES, PT REORIENTED AND PT RELAXES AND BACK TO SLEEP WITH GOOD RESP EFFORT NOTED NECK COLLAR IN PLACE, ANTERIOR NECK DRESSING D/I NO DRAIN NOTED BILAT SCDS ON NO ANTOINE CATHETER . MONITOR SR TO SB WITH NO ECTOPY NOTED AT THIS TIME, SATS 94-99% ON 8L MASK, IV TO LT FA #20 PATENT TO NS 300ML AT KVO RATE PER GRAVITY, IV TO RT AC WITH NS 800ML CLAMPED AT THIS TIME. ID BRACELET TO RT WRIST, PT ID'D WITH 2 IDENTIFIERS. 0855 PT NOT GIVEN WARM BLANKETS SHE KEEPS PULLING BLANKETS OFF AT THIS TIME, WILL WAIT UNTIL PT IS MORE ALERT TO QUESTION PT ON COLD, PAIN, AND NAUSEA. VSS.
--- NOTE | 2022-04-05 09:07 | P.OP_ITS ---
Operative Report Date of procedure: April 05, 2022 Pre-op diagnosis: Preop Diagnosis Cervical spondylosis with radiculopathy Post-op diagnosis: same Procedure done: 1. Anterior discectomy C6/7 2. Insertion of Cage C6/7 3. Instrumentation with anterior plate from C6-C7 4. Use of allograft Surgeon: Alexi Rodriguez Survey Questionnaire Designer: none Estimated blood loss (mL): 25 Procedure: 1. Anterior discectomy C6/7 2. Insertion of Cage C6/7 3. Instrumentation with anterior plate from C6-C7 4. Use of allograft The patient was taken to the operating room, where he underwent general endotracheal anesthesia without complications. He was then positioned supine on the operating table, and all areas of impingement were well padded. The arms were carefully padded and tucked at his sides. A roll was placed between the shoulder blades.. An x-ray was done to determine the appropriate level for the skin incision. The entire neck was then sterilely prepped and draped in the usual fashion. Neuromonitoring was attached prior to prepping. A transverse skin incision was made and carried down to the platysma muscle. This was then split in line with its fibers. Blunt dissection was carried down medial to the carotid sheath and lateral to the trachea and esophagus until the anterior cervical spine was visualized. A needle was placed into a disc and an x-ray was done to determine its location. The longus colli muscles were then elevated bilaterally with the electrocautery unit. Self-retaining retractors were placed deep to the longus colli muscle. Attention was brought to the C6/7 level that was confirmed on x-ray. The previous plate was identified. A caspar pin was placed into the C6 through the hole in the plate vertebrae and the C7 vertebrae. The disk space was then distracted. The microscope was then brought in. A radical anterior discectomies were performed at C6/7. This included complete removal of the anterior annulus, nucleus, and posterior annulus. The posterior longitudinal ligament was removed as were the posterior osteophytes. Foraminotomies were then accomplished bilaterally. This was done using a high speed donald, kerrison rongeurs and curretes Once all of this was accomplished, the curved currette was used to check for any residual compression. The central canal was wide open as were the foramen. A high-speed bur was used to remove the cartilaginous endplates above and below the interspace. Bleeding cancellous bone was exposed. The disc space were measured and appropriate size cage were placed sterilely onto the field. Allog raft graft was packed into the cages. The cage was then placed and there was good juxtaposition against the bleeding decorticated surfaces and good distraction of each interspace. Attention was brought to the next interspace. The [place] pins were removed. Bone wax was used to prevent any bleeding from occurring at the pin sites. Screws were placed through the cage into the vertebral bodies. The screw was placed through the cage from inferior to superior into the C6 body and then from superior to inferior into the C7 body. There was excellent purchase. A final x- ray was done confirming good position of the hardware and Cages. The locking screws were then applied, also with excellent purchase. Following a final copious irrigation, there was good hemostasis and no dural leaks. The carotid pulse was strong. The wounds were then closed in layers using 2-0 Vicryl suture for the platysma muscle, 2-0 Vicryl suture for the subcutaneous tissue, and 4-0 monocryl suture in a subcuticular skin closure. Glue was placed followed by application of a sterile dressing. The drain was hooked to bulb suction. A soft collar was applied. The patient was then carefully returned to the supine position on his hospital bed where he was reversed and extubated and taken to the recovery room having tolerated the procedure well.
--- NOTE | 2022-04-05 09:20 | SUR.PHASEI ---
0915 PT AWAKE AND ON RA VSS PT MOVES BILAT FEET EQUALLY AND STRONGLY DORSAL FLEXATION AND EXTENSION, PT AD OPERATIONS SPECIALIST STRONG AND EQUAL 0922 PT TAKING OCC ICE CHIPS WITHOUT DIFFICULTY, MONITOR SB 45-60 WITH NO ECTOPY
--- NOTE | 2022-04-05 09:43 | SUR.PHASEII ---
patient back in prep room 1 for phase 2. patient is awake but drowsy. states pain in her neck, medication ordered per rx by miguel angel. patients by bedside. patient on room air with sat at 96%.
[2022-04-05] MEDS: HYDROmorphone 1 mg/mL INJ 1 mL 0.5 MG IVP (09:59)
--- NOTE | 2022-04-05 10:46 | SUR.PHASEII ---
patients dressing to anterior neck is dry and intact. patient states pain at a 4. patient states able to swallow drink and jello with ease.
[2022-04-05] MEDS: HYDROcodone-acetaminophen 5-325 mg Tablet 1 TAB PO (11:07)
--- NOTE | 2022-04-05 14:21 | ANE.PACU2 ---
Inpatient post-anesthesia follow up: Airway intact: Yes Vital signs: Temperature 98.1 F Pulse Rate 53 Respiratory Rate 16 Blood Pressure 121/78 Pulse Oximetry 90 Oxygen Delivery Me thod Room Air Oxygen Flow Rate 2 Fraction of Inspir ed Oxygen Hydration adequate: Yes Nausea and vomiting: No Pain level: 3 Mental status: Baseline
== END 2022-04-05 11:30 | disposition home or self-care (01) ==
PROVIDERS: PCP Registered Nurse; Visit Provider Orthopaedic Surgery
PROC: 0RB30ZZ Excision of Cervical Vertebral Disc, Open Approach (ICD-10-PCS; CPT 22551; principal; 2022-04-05 07:00)
DX: M47.22 Other spondylosis with radiculopathy, cervical region (principal); Z79.82 Long term (current) use of aspirin; M79.7 Fibromyalgia; I10 Essential (primary) hypertension; F17.210 Nicotine dependence, cigarettes, uncomplicated
CPT/HCPCS: 20930; 22551; 22845; 22853; 72040; 76000; C1713; C9359; J0131; J0330; J0690; J1100; J1170; J2250; J2370; J2405; J2704; J2710; J3010; J3490; J7030

== ENCOUNTER → 2022-04-23 11:03 | Outpatient (BNVA) | payer MEDICARE, MEDICAID, SELFPAY | PROVIDERS: PCP Registered Nurse; Visit Provider Podiatrist Foot & Ankle Surgery | DX: S82.831A Other fracture of upper and lower end of right fibula, initial encounter for closed fracture (principal); X58.XXXA Exposure to other specified factors, initial encounter; Z98.1 Arthrodesis status; Z47.89 Encounter for other orthopedic aftercare | CPT/HCPCS: 73610; 99024; 99214 ==

== ENCOUNTER → 2022-05-21 11:13 | Outpatient (BNVA) | payer MEDICARE, MEDICAID, SELFPAY | PROVIDERS: PCP Family Medicine; Visit Provider Orthopaedic Surgery | DX: Z47.89 Encounter for other orthopedic aftercare (principal); Z98.1 Arthrodesis status | CPT/HCPCS: 72040; 99024 ==

== ENCOUNTER → 2022-06-05 11:28 | Outpatient (BNVA) | payer MEDICARE, MEDICAID, SELFPAY | PROVIDERS: PCP Family Medicine; Visit Provider Podiatrist Foot & Ankle Surgery | DX: S82.831D Other fracture of upper and lower end of right fibula, subsequent encounter for closed fracture with routine healing; L60.0 Ingrowing nail; X58.XXXD Exposure to other specified factors, subsequent encounter | CPT/HCPCS: 73610; 99214 ==

== ENCOUNTER → 2022-06-20 08:37 | Outpatient (BNVA) | payer MEDICARE, MEDICAID, OTHER, SELFPAY | PROVIDERS: PCP Family Medicine; Visit Provider Family Medicine | DX: I10 Essential (primary) hypertension (principal) | CPT/HCPCS: 80053; 80061; 84439; 84443; 85025 ==

== ENCOUNTER → 2022-07-02 11:09 | Outpatient (BNVA) | payer MEDICARE, MEDICAID, OTHER, SELFPAY | PROVIDERS: PCP Family Medicine; Visit Provider Orthopaedic Surgery | DX: M43.16 Spondylolisthesis, lumbar region (principal); Z98.1 Arthrodesis status | CPT/HCPCS: 72040; 99024; 99214 ==

== ENCOUNTER → 2022-07-08 13:19 | Outpatient (BNVA) | payer MEDICARE, MEDICAID, SELFPAY | PROVIDERS: PCP Family Medicine; Visit Provider Nurse Practitioner Family | DX: I47.1 Supraventricular tachycardia (principal); I10 Essential (primary) hypertension; F17.200 Nicotine dependence, unspecified, uncomplicated; Z79.82 Long term (current) use of aspirin | CPT/HCPCS: 99214 ==

== ENCOUNTER 2022-07-24 13:02 | Inpatient (IN) | payer MEDICARE, MEDICAID, SELFPAY ==
[2022-07-23 07:52] VITALS: BMI 31.4
--- NOTE | 2022-07-23 07:59 | ECG_ITS ---
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 Measurements Intervals [place] Rate: 56 P: 13 MD: 159 QRS: 34 QRSD: 86 T: 55 QT: 427 QTc: 415 Interpretive Statements SINUS BRADYCARDIA MINIMAL ST DEPRESSION [0.025+ mV ST DEPRESSION] No previous ECG available for comparison Electronically Signed On 07-23-2022 11:54:42 CDT by Lyndon Forbes M.D. [id number]
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
[2022-07-24] VITALS (17 sets, daily range): BP systolic 78–116; BP diastolic 48–86; PULSE 68–87; RESP 10–20; TEMP 36.1–36.7; O2SAT 90–100; BMI 31.4
--- NOTE | 2022-07-24 | XR_ITS ---
WS: [id number] Lumbar spine, C-arm fluoroscopy, 07/24/2022 Clinical Data: L3 to pelvis instrumented fusion Comparison: None. Findings: Dr. Rodriguez performed a posterior lumbosacral fusion. There is a right hip arthroplasty. XR/XR lumbar spine 2-3V* [id number] Impression: Posterior lumbosacral fusion.
[2022-07-24] MEDS: sodium chloride 0.9% 1,000 ML 30 ML IV (08:35)
--- NOTE | 2022-07-24 08:36 | ANES.PAUD2 ---
Pre-Anesthetic Update Pre-Anesthetic Assessment: Date of Surgery/Procedure: 07/24/22 Preop Diagnosis: Spondylolisthesis L4-5 lumbar stenosis with neurogenic claudication Proposed Procedure: Operation Date: 07/24/22 10:10 Proposed Procedures p Lumbar Fusion(Not Applicable) - Alexi Ovalle Jennifer, DO s Lumbar Spine Decompression(Not Applicable) - Alexi Ovalle Jennifer, DO s L3-Pelvis Fusion with Decompression and spinal cord stimulator removal:[id number],M43.16(Not Applicable) - Alexi Ovalle Jennifer, DO Any changes to Pre-Anesthetic Assessment?: No Last Intake: Intake Last Liquid Date 07/23/22 Last Liquid Time 21:30 Last Solid Date 07/23/22 Last Solid Time 19:30 Vitals: Temperature 97.4 F L 07/24/22 08:21 Temperature Source Temporal Artery S can 07/24/22 08:21 Pulse Rate 68 07/24/22 08:21 Respiratory Rate 18 07/24/22 08:21 Blood Pressure 116/86 07/24/22 08:21 Blood Pressure Jacquelyn n 96 07/24/22 08:21 Pulse Oximetry 96 07/24/22 08:21 Oxygen Delivery Me thod Room Air 07/24/22 08:21 Exam: Pre-Anes Outpt Exam: alert, oriented x 3, clear to auscultation bilaterally and regular rate & rhythm Cardiac Studies: No Data to Display
[2022-07-24 08:43] LABS: Basophils # 0.1 10^3/uL (0.0-0.1); Basophils % 0.8 %; Eosinophils # 0.4 10^3/uL (0.0-0.8); Eosinophils % 4.1 %; Hematocrit 38.9 % (37.0-47.0); Hemoglobin 13.1 g/dL (11.5-15.3); Lymphocytes # 3.2 10^3/uL (0.8-4.8); Lymphocytes % 34.3 %; Mean Corpuscular HGB Conc 33.7 g/dL (30.0-36.0); Mean Corpuscular Hemoglobin 29.1 pg (28.0-34.0); Mean Corpuscular Volume 86.4 fl (81-99); Mean Platelet Volume 10.2 fL (7.4-10.4); Monocytes # 0.6 10^3/uL (0.2-0.9); Monocytes % 6.3 %; Neutrophils # 5.02 10^3/uL (1.8-7.7); Neutrophils % 54.2 %; Nucleated Red Blood Cells % 0 %; Platelet Count 305 10^3/cmm (130-400); Red Cell Distribution Width 13.4 % (12.1-15.1); White Blood Count 9.3 10^3/uL (4.0-10.0)
[2022-07-24] MEDS: HYDROmorphone 1 mg/mL INJ 1 mL 0.5 MG IVP (08:45)
--- NOTE | 2022-07-24 08:47 | W.PM.OPSUD ---
Surgery/Procedure H&P Update DATE OF PROCEDURE: July 24, 2022 DATE H&P PERFORMED: 07/02/22 H&P UPDATE INFORMATION: I have reviewed H&P completed within last 30 days, I have examined patient prior to procedure and No changes to prior documentation PREOP DIAGNOSIS: Spondylolisthesis L4-5 lumbar stenosis with neurogenic claudication PLANNED PROCEDURE: Operation Date: 07/24/22 10:10 Proposed Procedures p Lumbar Fusion(Not Applicable) - DO haroldo Interiano Lumbar Spine Decompression(Not Applicable) - DO haroldo Interiano L3-Pelvis Fusion with Decompression and spinal cord stimulator removal:[id number],M43.16(Not Applicable) - Alexi Rodriguez DO
[2022-07-24 08:59] LABS: Anion Gap 14.7 (5-19); Blood Urea Nitrogen 9 mg/dL (6-20); Calcium 9.1 mg/dL (8.5-10.5); Carbon Dioxide 23 mmol/L (22-29); Chloride 107 mmol/L (98-107); Glomerular Filtration Rate 86.9 mL/min (90-130); Glucose 98 mg/dL (65-115); Osmolality Calculated 291 mOsm/kg (285-295); Potassium 3.7 mmol/L (3.5-5.1); Sodium 141 mmol/L (136-145)
[2022-07-24] MEDS: ceFAZolin 2,000 MG in sodium chloride 0.9% (plus) 50 ML 100 MG IV ×2 (09:23→17:19)
[2022-07-24] MEDS: lidocaine-epi 1% 20 mL INJ INJECTION (10:00)
[2022-07-24] MEDS: heparin, porcine 1,000 unit/mL INJ 10 mL 10000 UNIT IRRIGATION (10:20)
[2022-07-24] MEDS: vancomycin 1,000 MG SDV 1000 MG XX (10:29)
--- NOTE | 2022-07-24 13:16 | P.OP_ITS ---
Operative Report Date of procedure: July 24, 2022 Pre-op diagnosis: Preop Diagnosis Spondylolisthesis L4-5 lumbar stenosis with neurogenic claudication Post-op diagnosis: same Procedure: 1.? L4/5 Interbody fusion with posterolateral fusion 2.? Instrumentation L3-S1 3.? Lumbo pelvic fixation 4.? Posterolateral fusion from L3-Pelvis 5. Cage at L5/S1 6. Open SI joint fusion on the right 7. open SI joint fusion of the Left 8.? L3/4 laminectomy with partial facetectomies 9. L4/5 Laminectomy with partial facetectomy 10. use of autograft from same incision 11. allograft 12. Bone marrow aspirate from right iliac crest 13. use of computer navigation stereotactic from spine Patient is brought to the operative suite.? After undergoing anesthesia, the patient had neuro monitoring attached.? Patient was then placed in the prone position on the Az table.? All areas of impingement were well-padded.? Patient was then prepped and draped in the normal sterile fashion.? Skin incision was then made over the L3-sacrum.? Subperiosteal dissection was made out to the transverse processes of L3 and L4 and L5 and out to the sacral ala's and dissecting out the sacroiliac joints.? The Vet[employer] bone marrow aspirate kit was used to aspirate bone marrow aspirate from the right iliac crest.? This was done by using the sharp probe to open up the bone.? Aspiration was performed and then the blunt probe was then used to dissect down to through the bone tunnel.? An aspirating well drawn back a millimeter approximately 20 cc of bone marrow aspirate was used.? And mixed with the allograft and autograft bone that will be used. Extension was brought to placing the pins for the computer navigation fiducial.? This was done by placing 2 iliac crest pins in the right side.? These pins were later removed within the case.? Skin incision made in 2 pins were placed fiducial was attached to these 2 pins.? And then the C-arm was brought in and spun around the patient and the information from the C-arm was then loaded into the computer through the fiducials.? And later used to place the pedicle screws. The technique for placing the pedicle screws was to use a drill followed by the gearshift probe linked to computer navigation.? Followed by the ball probe to feel the superior inferior medial lateral daniels of the pedicles.? Then placement of the screws linked to computer navigation.? Was done at each pedicle.? Screws were placed at L 3 bilaterally and L4? bilaterally, L5 bilaterally and S1 bilaterally. Extension was brought to placing the iliac screws.? This was done by using the gearshift linked to computer navigation gearshift was placed just distal to the S1 foramen and lateral.? Was driven through the sacral ala across the iliosacral joint and into the iliac crest.? This was done bilaterally.? And then a 65 mm 8.5 mm iliac screw was placed. Next attention was brought to doing the open SI joint fusions on both the right and the left side.? This was done by identifying the SI joint scraping out the SI joint and packing it with bone graft as well as passing a wire across to the iliac joint that has bone graft capabilities the wire was then drilled and bone graft was packed into this hole and then the screw which is in sacroiliac screw was brought across the joint fusing the joint.? This was done on both the right and the left sides. Next attention was brought to performing the laminectomy ofL4.? This was done using the high-speed bur Kerrisons and curettes.? Once the lamina was removed and then attention was brought to performing a partial facetectomy on the contralateral side.? This was done again using the high-speed bur curettes and Kerrisons.? The ligamentum flavum was taken down bilaterally from L4 to L5..? Attention was then brought to the facet on the ipsilateral side.? The facet was taken down.? The L5 nerve was decompressed as it passed around the s1 pedicle.? The laminectomy was done for purposes of decompressing the nerve as well as placement of the cage.? The L4 nerve was identified as it traversed through the L4/5 foramen.? The thecal sac was identified and retracted.? The L5/S1 disc base was identified.? Using a knife the disc base was opened.? And then sequential suma were placed.? The first shaver was a 6 and the last shaver was a 10.? Using a pituitary and down going curette the endplates were scraped and disc material was removed from the space.? Once adequate decompression of the disc base was felt to be had.? Osteoamp sponge was packed into the anterior aspect of the disc base.? Then a size 11 cage from [employer] was placed after packing osteoamp into the cage.? While placing the cage the thecal sac and L5 nerve was protected.? C arm was used to ensure that the cages placed in the appropriate position. Laminectomy was done at L4.? This was done by using high-speed bur as well as curved curettes and Kerrisons.? Attention was then brought to the facet medially medial aspect of the facet joints were taken down.? The L4-5 level has significant scar tissue from previous surgery.? The scar tissue was removed from the bone and bone was freed up scar tissue that was scarred down to the dura.? The L5 nerve root was traced around the L5 pedicle felt to be adequately decompressed.? In the L5 nerve on both sides was traced around the L5 pedicles and felt to be adequate decompressed.? The L for nerve root was felt to be adequate decompressed through the L4-5 foramen. Attention was brought to the lamina of L3.? Again high-speed bur was used to take down the lamina as well as medial aspect of facet joints.? Curettes and Kerrisons were used to remove the bone that was remaining.? Ligamentum flavum was taken down from L3-L4.? L3 nerve was traced out the L3/4 foramen bilaterally felt to be adequately decompressed and the L4 nerves were traced around the L4 pedicles felt to be adequate decompressed. Attention was then brought to attaching the rods to the screws placed in the bilaterally L3 bilaterally, L4 bilaterally L5 bilaterally S1 bilaterally.? The angela was also connected to the screws providing the lumbopelvic aspect of the lumbopelvic fixation.? Caps were torqued into position. Locking the construct in place. Wound was copiously irrigated and then attention was brought to decorticating the facets and transverse processes laterally.? Bone that was taken down from the lamina was used along with osteoamp fibers and sponges were packed into the lateral gutters along the facet joints.? This was done bilaterally. Wound was then closed in a layered fashion starting with the thoracolumbar fascia.? 0-vicryl was used the sub cutaneous tissue was closed with 2-0 vicryl and skin with 4-0 monocryl.? Glue was then used to seal the skin and a steril dressing was applied.? Patient was then placed in the supine position. The endotracheal tube was removed and patient was transferred to the PACU in stable condition.
--- NOTE | 2022-07-24 14:05 | PC.NURSE ---
report given to gianni at 1403 and patient is alert and oriented and drinking fluid and ready to go to floor. was told by floor nurse that pt would not be going to room that was assigned and the room the pt would be going to was dirty. this RN gave report to gianni and is now holding pt unitl room is clean.
[2022-07-24] MEDS: ketorolac 30 mg/mL INJ IVP ×2 (15:06→21:43)
[2022-07-24] MEDS: HYDROcodone-acetaminophen 5-325 mg Tablet PO ×2 (15:06→19:56)
[2022-07-24] MEDS: pregabalin 75 mg Capsule PO ×2 (15:06→20:52)
[2022-07-24] MEDS: lactated ringers 1,000 ML 90 ML IV (15:07)
--- NOTE | 2022-07-24 15:37 | ANE.PACU2 ---
Inpatient post-anesthesia follow up: Airway intact: Yes Vital signs: Temperature 97.0 F Pulse Rate 76 Respiratory Rate 14 Blood Pressure 98/61 Pulse Oximetry 94 Oxygen Delivery Me thod Room Air Oxygen Flow Rate 6 Fraction of Inspir ed Oxygen Hydration adequate: Yes Nausea and vomiting: No Pain level: 3 Mental status: Baseline
[2022-07-24] MEDS: omega-3 fatty acids 1,000 mg Capsule 1000 MG PO (17:19)
[2022-07-24] MEDS: docusate sodium 100 mg Capsule PO (17:19)
[2022-07-24] MEDS: cetirizine 10 mg Tablet PO (20:52)
[2022-07-24] MEDS: fluticasone nasal spray 16gm Btl 2 SPRAY INTRANASAL (20:52)
[2022-07-24] MEDS: acetaminophen 325 mg Tablet 650 MG PO (22:32)
[2022-07-25] VITALS: BP 93/57; PULSE 84; RESP 18; TEMP 36.7; O2SAT 94
--- NOTE | 2022-07-25 00:19 | PC.NURSE ---
Called Dr. Rodriguez at 2029 to inform of low BP readings throughout the day and to express concern about giving her propanolol; he then ordered to hold 2100 dose of propanolol
[2022-07-25] MEDS: ceFAZolin 2,000 MG in sodium chloride 0.9% (plus) 50 ML 100 MG IV ×2 (01:43→09:48)
[2022-07-25] MEDS: HYDROcodone-acetaminophen 5-325 mg Tablet PO ×3 (02:37→12:56)
[2022-07-25] MEDS: lactated ringers 1,000 ML 90 ML IV (02:57)
[2022-07-25 04:00] VITALS: BP 106/66; PULSE 95; RESP 18; TEMP 36.8; O2SAT 99
[2022-07-25] MEDS: duloxetine 60 mg Capsule PO (05:47)
[2022-07-25 07:24] VITALS: BP 119/73; PULSE 66; RESP 16; TEMP 36.7; O2SAT 96
--- NOTE | 2022-07-25 08:14 | PM.PN ---
Subjective Subjective: Patient pain controlled she is resting comfortably in bed she has not been out of bed yet. Vitals/I&O/Wt Last Vital Signs Temp 98.0 F 07/25/22 07:24 Pulse 66 07/25/22 07:24 Resp 16 07/25/22 07:24 BP 119/73 07/25/22 07:24 Pulse Ox 96 07/25/22 07:24 O2 Del Method Room Air 07/25/22 07:24 O2 Flow Rate 6 07/24/22 13:40 07/24/22 07/25/22 07/25/22 22:59 06:59 14:59 Intake Total 533.5 / 2583.5 1050 / 3633.5 Output Total 375 / 1825 2050 / 3875 Balance 158.5 / 758.5 -1000 / -241.5 Weight last 48 hrs Weight 183 lb Physical Exam Narrative: Resting calmly in bed no complaints of pain. Urinary Catheter Management: Ponce: Cath Placed During This Visit: yes Reason for Continuing Indwelling Catheter: Acute Urinary Retention or Obstruction Urinary Catheter Date of Insertion: 07/24/22 Urinary Catheter Time of Insertion: 09:45 Data 07/24/22 08:27 07/24/22 08:27 A&P Assessment and plan (1) Status post lumbar spinal fusion: Patient is postop day 1 from L3 to pelvis fusion. At this point we will DC the Ponce DC her Hemovac drain get up with physical therapy if she does well with physical therapy we will discharge her home today. Attestations Medical Necessity Statement*: Pending physical therapy. Coding Level of Care Code Acute Code for Chg Fwd Diagnoses Status post lumbar spinal fusion Z98.1
[2022-07-25] MEDS: omega-3 fatty acids 1,000 mg Capsule 1000 MG PO (09:47)
[2022-07-25] MEDS: aspirin 325 mg Tablet PO (09:48)
[2022-07-25] MEDS: atorvastatin 40 mg Tablet 20 MG PO (09:49)
[2022-07-25] MEDS: multivitamin therapeutic Tablet 1 TAB PO (09:49)
[2022-07-25] MEDS: pregabalin 75 mg Capsule PO (09:49)
[2022-07-25] MEDS: isosorbide mononitrate ER 60 mg Tablet PO (09:49)
[2022-07-25] MEDS: propranolol 20 mg Tablet PO (09:50)
[2022-07-25] MEDS: docusate sodium 100 mg Capsule PO (09:50)
[2022-07-25] MEDS: pantoprazole DR 40 mg Tablet PO (09:50)
[2022-07-25] MEDS: ketorolac 30 mg/mL INJ IVP (10:30)
[2022-07-25 11:28] VITALS: BP 122/81; PULSE 75; RESP 16; TEMP 36.7; O2SAT 99
--- NOTE | 2022-07-25 11:56 | P.DS_ITS ---
Discharge Providers Date of Admission: 07/24/22 13:02 Date of Discharge: July 25, 2022 Attending Provider at Admission: Alexi Rodriguez DO Attending Provider at Discharge: Alexi Rodriguez DO Primary Care Provider: Nathaniel Simon MD Diagnoses at Discharge Discharge Diagnosis (1) Status post lumbar spinal fusion: Status: Acute Physical Exam Urinary Catheter Management: Ponce: Cath Placed During This Visit: yes Reason for Continuing Indwelling Catheter: Acute Urinary Retention or Obstruction Urinary Catheter Date of Insertion: 07/24/22 Urinary Catheter Time of Insertion: 09:45 Discharge Data Studies Completed and Pending Completed Studies During Hospitalization Category Date Time Status XR lumbar spine 2-3V* [id number] Routine Exams 07/24/22 Completed Pending at discharge Category Date Time Status HCT [Hematocrit] Routine Lab 07/25/22 10:15 Ordered Hemoglobin Routine Lab 07/25/22 10:15 Ordered Radiology Impressions Lumbar Spine X-Ray 07/24/22 00:00 Impression: Posterior lumbosacral fusion. Laboratory Results WBC 9.3 10^3/uL (4.0-10.0) 07/24/22 08:27 RBC 4.50 10^6/uL (4.1-5.3) 07/24/22 08:27 Hgb 13.1 g/dL (11.5-15.3) 07/24/22 08:27 Hct 38.9 % (37.0-47.0) 07/24/22 08:27 MCV 86.4 fl (81-99) 07/24/22 08:27 MCH 29.1 pg (28.0-34.0) 07/24/22 08: MCHC 33.7 g/dL (30.0-36.0) 07/24/22 08:27 RDW 13.4 % (12.1-15.1) 07/24/22 08:27 Plt Count 305 10^3/cmm (130-400) 07/24/22 08:27 MPV 10.2 fL (7.4-10.4) 07/24/22 08:27 Neut % (Auto) 54.2 % 07/24/22 08:27 Lymph % (Auto) 34.3 % 07/24/22 08:27 [place] % (Auto) 6.3 % 07/24/22 08:27 Eos % (Auto) 4.1 % 07/24/22 08:27 Baso % (Auto) 0.8 % 07/24/22 08:27 Neut # (Auto) 5.02 10^3/uL (1.8-7.7) 07/24/22 08:27 Lymph # (Auto) 3.2 10^3/uL (0.8-4.8) 07/24/22 08:27 [place] # (Auto) 0.6 10^3/uL (0.2-0.9) 07/24/22 08:27 Eos # (Auto) 0.4 10^3/uL (0.0-0.8) 07/24/22 08: Baso # (Auto) 0.1 10^3/uL (0.0-0.1) 07/24/22 08: Nucleated RBC % (auto) 0 % 07/24/22 08: Nucleated RBCs # 0.0 /100WBC 07/24/22 08:27 Sodium 141 mmol/L (136-145) 07/24/22 08:27 Potassium 3.7 mmol/L (3.5-5.1) 07/24/22 08:27 Chloride 107 mmol/L (98-107) 07/24/22 08: Carbon Dioxide 23 mmol/L (22-29) 07/24/22 08:27 Anion Gap 14.7 (5-19) 07/24/22 08:27 BUN 9 mg/dL (6-20) 07/24/22 08:27 Creatinine 0.7 mg/dL (0.5-0.9) 07/24/22 08:27 GFR Calculation 86.9 mL/min (90-130) L 07/24/22 08:27 Glucose 98 mg/dL (65-115) 07/24/22 08:27 Calculated Osmolality 291 mOsm/kg (285-295) 07/24/22 08:27 Calcium 9.1 mg/dL (8.5-10.5) 07/24/22 08:27 Blood Type O Positive 07/24/22 08:27 Rho(D) Type Positive 07/24/22 08:27 Antibody Screen Negative 07/24/22 08:27 Vitals Last Vital Signs Temp 98.0 F 07/25/22 11:28 Pulse 75 07/25/22 11:28 Resp 16 07/25/22 11:28 BP 122/81 07/25/22 11:28 Pulse Ox 99 07/25/22 11:28 O2 Del Method Room Air 07/25/22 11:28 O2 Flow Rate 6 07/24/22 13:40 Discharge Plan Discharge Condition: Stable Prescriptions: New hydrocodone-acetaminophen 5-325 mg tablet 1 - 2 tab PO .Q4-6H Qty: 40 0RF Continued nitroglycerin [Nitrostat] 0.4 mg tablet, sublingual 0.4 mg SUBLINGUAL Q5M PRN (Reason: Chest Pain) aspirin 325 mg tablet 325 mg PO DAILY multivitamin Tablet 1 tab PO DAILY (DME) ASO to right See Rx Instructions .Route .MEDSUPPLY Qty: 1 0RF Rx Instructions: As directed duloxetine [Cymbalta] 60 mg capsule,delayed release(DR/EC) 60 mg PO QAM Qty: 30 3RF Rx Instructions: Take one capsule every morning paliperidone [Invega] 1.5 mg tablet extended release 24 hr 1.5 mg PO QAM Qty: 30 3RF Rx Instructions: Take one tablet every morning acetylcysteine 600 mg capsule 600 mg PO BID Qty: 60 3RF Rx Instructions: Take one capsule twice per day ropinirole 0.5 mg tablet See Rx Instructions .ROUTE .COMPLEX Qty: 90 0RF Dose Instruction: TAKE 1 TABLET BY MOUTH DAILY Rx Instructions: TAKE 1 TABLET BY MOUTH AT BEDTIME pantoprazole [Protonix] 40 mg tablet,delayed release (DR/EC) 40 mg PO DAILY Qty: 90 1RF isosorbide mononitrate 60 mg tablet extended release 24 hr 60 mg PO DAILY Qty: 90 3RF diphenhydramine HCl [Benadryl Allergy] 25 mg tablet 25 mg PO DAILY PRN (Reason: Allergy Symptoms) sumatriptan succinate 25 mg tablet See Rx Instructions PO .COMPLEX Qty: 30 0RF Rx Instructions: take 1 tab at onset of headache; if no relief may repeat 1 tab after at least 2 hrs; max = 4 tabs/24 hr PO ondansetron HCl 4 mg tablet 4 mg PO Q8H PRN (Reason: nausea and vomiting) Qty: 30 0RF epinephrine [EpiPen 2-Job] 0.3 mg/0.3 mL auto-injector 0.3 mg IM ONCE PRN (Reason: Allergy Symptoms) Qty: 2 0RF simvastatin 20 mg tablet See Rx Instructions .ROUTE .COMPLEX Qty: 90 0RF Dose Instruction: TAKE 1 TABLET BY MOUTH DAILY Rx Instructions: TAKE 1 TABLET BY MOUTH DAILY tizanidine 4 mg tablet See Rx Instructions .ROUTE .COMPLEX Qty: 60 0RF Dose Instruction: TAKE 1 TABLET BY MOUTH TWICE DAILY NEEDED FOR MUSCLE SPASMS Rx Instructions: TAKE 1 TABLET BY MOUTH TWICE DAILY NEEDED FOR MUSCLE SPASMS propranolol 20 mg tablet See Rx Instructions .ROUTE .COMPLEX Qty: 450 0RF Dose Instruction: TAKE 2 TABLETS BY MOUTH EVERY MORNING, 1 TABLET AT NOON AND 2 TABLET EVERY EVENING. Rx Instructions: TAKE 2 TABLETS BY MOUTH EVERY MORNING, 1 TABLET AT NOON AND 2 TABLET EVERY EVENING. (DME) Intraoperative neuromonitoring See Rx Instructions .ROUTE .MEDSUPPLY Qty: 1 0RF Rx Instructions: As directed pregabalin [Lyrica] 75 mg capsule 75 mg PO TID 30 Days Qty: 90 2RF Zyrtec 10 mg tablet 10 mg PO BEDTIME Flonase Allergy Relief 50 mcg/actuation spray,suspension 2 spray intranasal BEDTIME Rx Instructions: administer into each nostril Discharge Orders: Discharge Order (Routine); Ordered 07/25/22 Ordered By: Alexi Rodriguez Referrals: Alexi Rodriguez DO [Physician] - 08/01/22 8:30 am Nathaniel Simon MD [Primary Care Provider] - 07/31/22 10:15 am Discharge Diet: Advance as tolerated Discharge Activity: Limit activity as instructed Patient Instructions: Opioid Safety Activity Restrictions/Additional Instructions: Thank you for [facility] for your care! The following is a list of instructions, from your provider, to follow upon your discharge to ensure you have the optimal recovery from your recent injury orsurgery. Follow-up care is a davila part of your treatment and safety. Be sure to make and go to all appointments, and call your doctor if you are having problems. If you do not already have a follow-up appointment made, call Dr. Rodriguez office in the next 1-3 days to make follow up appointment for 1 weeks at [phone]. It is also a good idea to know your test results and keep a list of the medicines you take. Medications will be prescribed for you at your provider's discretion. These medications are to be used as instructed; if they are taken more often that prescribed they will not be refilled early and in most cases will not be refilled at all. > When a refill is needed,you should contact angely allison 2-3 business days before your prescription runs out. Medications will NOT be refilled by concrete bucket loader providers after hours! > Many pain medications contain Tylenol (Acetaminophen). Do not consume more than 4,000 mg of Tylenol per day in total with any combination ofmedications. > Pain medications can cause constipation. Please use an over the counter stool softener as directed, while taking pain medications. Consulty our local pharmacist with questions or recommendations on stool softeners. If constipation persists, contact our office or your primary care provider. > While under our care,you are not to receive pain medications or other controlled substances from any other provider unless our office is notified and approves. Any attempts to do so will result in refusal to prescribe any further pain medications and possible dismissal from our practice. ? ? Showering is permitted, however we ask that you do not take a bath, sit in a whirlpool / Jacuzzi, or go swimming for 1 month. For only the first 2 days after surgery, lt wilt be necessary for you to cover your wound/dressing with plastic and tape to keep it dry. ? Walking is essential for the healing process after surgery. We would like you to slowly advance your walking. This should be done on relatively flat clear ground (inside or out) or can be done on a treadmill. Remember this goal does not have to happen all at once, slowly increase your distance and duration. This can be broken into more more than one walk per day as tolerated. Patients who walk as directed after surgery rarely require Physical Therapy. In the unlikely event this issue arises your provider will direct hospital staff to make the appropriate arrangements. ? No lifting over 5 pounds {a gallon of milk) or bending/twisting until further notice. Each of these activities places an unnecessary amount of stress onto the body and can impede the delicate healing process. > Instead of bending at the waist, keep your back straight and bend at the knees. > Instead of twisting your torso, keep your back straight and turn your entire body with your feet. ? You may sleep in any position which makes you comfortable. Many patients find comfort sleeping in a reclining chair. It is not abnormal to have difficulty sleeping for the first several weeks following your surgery. We recommend trying Benadry! or Tylenol PM as directed to help with your sleeping difficulties. Both medications are over the counter and available withoutprescription. ? NO SMOKING!!! Smoking dramatically increases the probability of developing postoperative wound infections. ? Common complaints after lumbar and/or thoracic spine surgery include, but are not limited to: numbness and/or tingling in the legs, pain around the incision and surrounding tissues, muscle spasms, or stiffness of the middle to low back. Contact our office if these symptoms persist or if an acute change occurs. ? No driving for the first 3-5days, and not while taking narcotics until seen at your follow-up appointment and cleared. There are no restrictions for riding on short trips, however if you take a longer trip, arrangements should be made to make regular stops to get out of the vehicle and stretch . ? Swelling is an unfortunate event that will take place with any surgery and is the primary source of your postoperative discomfort. While walking and regular approved activities helps control inflammation, there are additional steps you can take to minimizeswelling. > Place ice over the surgical site and surrounding tissue for twenty minutes, followed by applying a low/medium heat (heating pad) for an additional twenty minutes every 1-2 hours as needed for painrelief. > You may use of over the counter anti-inflammatory medications (Ibuprofen, Motrin, Aleve, Advil, etc) as directed on the package label. These types of medicines wm significantly reduce the amount of discomfort you experience after surgery from swelling. It should be noted that if you have and allergy to any of these medications, or a history of ulcers or kidney disease you should consult you primary care provider prior to starting these medications. Discharge Attestations Time Spent in Discharge Care*: less than 30 min Quality Metrics Clinical Quality Measures [ No reported AMI, CVA or VTE this stay] Coding Level of Care Code Acute Code for Chg Fwd Diagnoses Status post lumbar spinal fusion Z98.1
[2022-07-25 12:28] LABS: Hemoglobin 9.4 g/dL (11.5-15.3)
--- NOTE | 2022-07-25 13:24 | PC.NURSE ---
Discussed discharge follow up appointments, new medications, restrictions on lifting, bending and twisting. Patient and spouse verbalized understanding.
[2022-07-25 13:38] VITALS: BP 122/81; PULSE 75; RESP 16; TEMP 36.7; O2SAT 99
== END 2022-07-25 13:37 | disposition home or self-care (01) | DRG 454 ==
LOC: MEDSURG 13:16
PROVIDERS: Anesthesiology; Admitting Provider Orthopaedic Surgery; PCP Family Medicine; Visit Provider Orthopaedic Surgery
PROC: 0SG00AJ Fusion of Lumbar Vertebral Joint with Interbody Fusion Device, Posterior Approach, Anterior Column, Open Approach (ICD-10-PCS; principal; 2022-07-24 09:40)
PROC: 0SG00AJ Fusion of Lumbar Vertebral Joint with Interbody Fusion Device, Posterior Approach, Anterior Column, Open Approach (ICD-10-PCS; CPT 63005; 2022-07-24 09:40)
PROC: 0SG00AJ Fusion of Lumbar Vertebral Joint with Interbody Fusion Device, Posterior Approach, Anterior Column, Open Approach (ICD-10-PCS; 2022-07-24 09:40)
DX: M43.16 Spondylolisthesis, lumbar region (principal); F33.9 Major depressive disorder, recurrent, unspecified; F43.12 Post-traumatic stress disorder, chronic; X08.8XXS Exposure to other specified smoke, fire and flames, sequela; M79.7 Fibromyalgia; M48.061 Spinal stenosis, lumbar region without neurogenic claudication; Z86.73 Personal history of transient ischemic attack (TIA), and cerebral infarction without residual deficits; I10 Essential (primary) hypertension; F41.0 Panic disorder [episodic paroxysmal anxiety]; Z96.641 Presence of right artificial hip joint; F17.210 Nicotine dependence, cigarettes, uncomplicated
CPT/HCPCS: 36415; 51702; 72100; 76000; 80048; 85014; 85018; 85025; 86850; 86900; 93005; 97161; 97530; C1713; C9359; J0131; J0330; J0690; J1100; J1170; J1644; J1885; J2250; J2405; J2704; J3010; J3370; J3490; J7030; J7120; P9045

== ENCOUNTER → 2022-08-01 08:33 | Outpatient (BNVA) | payer MEDICARE, MEDICAID, SELFPAY | PROVIDERS: PCP Family Medicine; Visit Provider Physician Assistant | DX: Z98.1 Arthrodesis status (principal); L24.A9 Irritant contact dermatitis due friction or contact with other specified body fluids | CPT/HCPCS: 99024 ==

== ENCOUNTER → 2022-08-08 11:53 | Outpatient (BNVA) | payer MEDICARE, MEDICAID, SELFPAY | PROVIDERS: PCP Family Medicine; Visit Provider Physician Assistant | DX: Z98.1 Arthrodesis status (principal) | CPT/HCPCS: 72100; 99024 ==

== ENCOUNTER → 2022-08-15 10:22 | Outpatient (BNVA) | payer MEDICARE, MEDICAID, SELFPAY | PROVIDERS: PCP Family Medicine; Visit Provider Orthopaedic Surgery | DX: Z98.1 Arthrodesis status (principal); R20.2 Paresthesia of skin; M79.605 Pain in left leg | CPT/HCPCS: 72100; 99024 ==

== ENCOUNTER 2022-08-19 07:19 | Outpatient (CLI) | payer MEDICARE, MEDICAID, SELFPAY ==
--- NOTE | 2022-08-19 07:30 | CT_ITS ---
WS: [id number] CT LUMBAR SPINE WITHOUT AND WITH CONTRAST TECHNIQUE: Noncontrast and Contrast-enhanced CT of the lumbar spine with coronal and sagittal reforma tted images. CLINICAL INFORMATION: edema to surgical site COMPARISON: Myelogram February 18, 2022 DLP: 998.[address] scans at [facility] use at least one of these dose optimization techniques: automated e xposure control; mA and/or kV adjustment per patient size (includes targeted exams where dose is matc hed to clinical indication); or iterative reconstruction. FINDINGS: Postoperative changes are new since February 18, 2022. Pedicle screw fixation L3-S1 with interbody fu kimberlee grafts L4-L5. Chronic interbody fusion L5-S1 unchanged. Grade 1 anterolisthesis L3 on L4 and L4 on L5. Bilateral sacroiliac fusion. Interconnecting rods appear intact. Laminectomy defects L3-L5. Im mature dorsal lateral bone graft material. Pedicle screws appear intact. Partially visualized screw f ixation RIGHT hip. Lung bases are well aerated. Small esophageal hiatal hernia. Adrenal glands are normal. Cholecystecto my clips. Postoperative seroma along the surgical corridor in the subcutaneous soft tissues. This measures appr oximately 3.2 x 7.1 x 12.3 cm extending from L1 to L5 dorsally and extending into the laminectomy def ects. L1-L2: Normal. L2-L3: Mild annular bulging. Slight effacement of ventral thecal sac. Spinal canal and foramen are pa tent. L3-L4: Postoperative changes pedicle screw fixation with laminectomy defects. Spinal canal is patent. Mild RIGHT foraminal narrowing. Slight anterolisthesis. L4-L5: Prior postoperative changes. Pedicle screw fixation. Interbody fusion. Mild RIGHT and no signi ficant LEFT foraminal narrowing. L5-S1: Pedicle screw fixation. Interbody fusion. Spinal canal and foramen are patent. CT/CT lumbar spine wo/w con [id number] IMPRESSION: 1. Postoperative changes pedicle screw fixation L3-S1 with sacroiliac fusion i s new from previous. No evidence of hardware loosening. Interconnecting rods ar e intact. 2. Associated laminectomy defects with dorsal lateral bone graft material. Int erbody fusion graft L4-L5. 3. Postoperative seroma within the laminectomy defects. Contiguous subcutaneou s seroma extending from L1 to L5 along the surgical corridor 4. No significant central canal stenosis.
[2022-08-19] MEDS: iohexol 350 mg/mL 500 mL Btl (per mL) IV (07:45)
== END 2022-08-19 07:20 | disposition home or self-care (01) ==
PROVIDERS: PCP Family Medicine; Visit Provider Orthopaedic Surgery
DX: R20.2 Paresthesia of skin (principal); Z98.1 Arthrodesis status; M96.842 Postprocedural seroma of a musculoskeletal structure following a musculoskeletal system procedure; Y83.8 Other surgical procedures as the cause of abnormal reaction of the patient, or of later complication, without mention of misadventure at the time of the procedure
CPT/HCPCS: 72133; Q9967

== ENCOUNTER → 2022-08-22 15:57 | Outpatient (BNVA) | payer MEDICARE, MEDICAID, SELFPAY | PROVIDERS: PCP Family Medicine; Visit Provider Physician Assistant | DX: M54.6 Pain in thoracic spine (principal); M25.559 Pain in unspecified hip; M54.9 Dorsalgia, unspecified | CPT/HCPCS: 72020; 99024 ==

== ENCOUNTER 2022-08-28 11:29 | Inpatient (IN) | payer MEDICARE, MEDICAID, SELFPAY ==
[2022-08-27 13:57] VITALS: BMI 31.6
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
[2022-08-28] VITALS (18 sets, daily range): BP systolic 101–135; BP diastolic 59–81; PULSE 55–74; RESP 12–19; TEMP 36.6–36.8; O2SAT 94–98
[2022-08-28] MEDS: sodium chloride 0.9% 1,000 ML 30 ML IV (06:27)
--- NOTE | 2022-08-28 06:35 | W.PM.OPSUD ---
Surgery/Procedure H&P Update DATE OF PROCEDURE: August 28, 2022 DATE H&P PERFORMED: 08/22/22 H&P UPDATE INFORMATION: I have reviewed H&P completed within last 30 days, I have examined patient prior to procedure and No changes to prior documentation PREOP DIAGNOSIS: wound drainage, failed Spinal Cord Stimulator PLANNED PROCEDURE: Operation Date: 08/28/22 07:00 Proposed Procedures p Spinal cord stimulator lead and generator removal with I& D lumbar spine:[id number],M54.9,M54.6(Not Applicable) - Alexi Rodriguez DO
[2022-08-28] MEDS: ceFAZolin 2,000 MG in sodium chloride 0.9% (plus) 50 ML 100 MG IV ×3 (07:01→23:28)
[2022-08-28] MEDS: lidocaine-epi 2% 20 mL INJ INJECTION (07:31)
--- NOTE | 2022-08-28 08:13 | PM.OP ---
Operative Report Date of procedure: August 28, 2022 Pre-op diagnosis: Preop Diagnosis wound drainage, failed Spinal Cord Stimulator Post-op diagnosis: same Procedure done: 1. removal of neurostimulator 2. removal of battery for neurotransmitter 3. Irrigation and debridement of wound down to bone Specimens removed/disposition: cultures sent Surgeon: Alexi Rodriguez Design Printing Machine Setter: Enrike Simon Design Printing Machine Setter: The certified surgical technician, Enrike Simon, PAC was needed for his expertise under the microscope. He was important and necessary throughout the procedure to complete in a safe and timely manner. He assisted with patient positioning prepping and draping tissue retraction suctioning of the operative field protection of the dural sac and tissue closure Estimated blood loss (mL): 50 Procedure: 1. removal of neurostimulator 2. removal of battery for neurotransmitter 3. Irrigation and debridement of wound down to bone Patient brought the op suite after undergoing anesthesia was placed in the prone position orders and pressure well-padded. Patient was then prepped and draped normal sterile fashion. Attention was brought to the neurostimulator paddle. Skin dissection was made over the previous incision in the thoracic spine. The spinous process was identified subperiosteal dissection was made down wires were identified once the wires were identified they were traced down to the paddle. A curved curette was used to undermine the paddle and the bone. A [place] was then used to take down some of the bone and scar tissue. In order to free up the paddle. The paddle was then slid out. Once the paddle slid out. Attention was then brought to the battery. Skin incision made over the battery on the right flank. Once the battery was identified the battery was removed. The paddle wires were cut and the wires were pulled through the incision of the battery. Next tension was brought to the previous wound where the seroma was. Skin incision made over the previous incision. The once the skin was penetrated and there is large amount of fluid could be serous fluid could have been CSF this was then traced down to the previous laminectomy site and hardware. Retractors were placed and the microscope was brought in. At this point I do not see a obvious leak. The bone was divided with curved curette and Kerrison rongeur. The hardware is in good position. This point elected to irrigate with a liter of saline. And then put some Gelfoam and DuraSeal in case there was a CSF leak. The seal it off. Wound was then closed in layered fashion the thoracolumbar fascia was closed vancomycin powder was placed prior and then in the superficial layer a deep drain was placed and the wound was closed in layered fashion with 0 Vicryl and nylon suture. The previous incisions of the battery and the neurotransmitter were closed in layered fashion with 0 Vicryl 2-0 Vicryl and Monocryl suture. Cultures were sent and patient was transferred to the PACU in stable condition.
--- NOTE | 2022-08-28 09:13 | P.PCN_ITS ---
PACU note Narrative: VSS, Good respiratory effort, report to DAY CARE HOME MOTHER Exam: awake
--- NOTE | 2022-08-28 09:13 | PM.PACU ---
PACU note Narrative: VSS, Good respiratory effort, report to AEROSPACE TECHNICIAN Exam: awake
--- NOTE | 2022-08-28 09:24 | P.ANESUD_ITS ---
Pre-Anesthetic Update Pre-Anesthetic Assessment: Date of Surgery/Procedure: 08/28/22 Preop Agatha gnosis: wound drainage, failed Spinal Cord Stimulator Proposed Procedure: Operation Date: 08/28/22 07:00 Proposed Procedures p Spinal cord stimulator lead and generator removal with I& D lumbar spine:[id number],M54.9,M54.6(Not Applicable) - Alexi Rodriguez, DO Any changes to Pre-Anesthetic Assessment?: No Last Intake: Intake Last Liquid Date 08/27/22 Last Liquid Time 23:00 Last Solid Date 08/27/22 Last Solid Time 19:00 Vitals: Temperature 98.3 F 08/28/22 09:13 Temperature Source Temporal Artery S can 08/28/22 09:13 Pulse Rate 65 08/28/22 09:13 Respiratory Rate 17 08/28/22 09:13 Blood Pressure 119/78 08/28/22 09:13 Blood Pressure Jacquelyn n 91 08/28/22 09:13 Pulse Oximetry 97 08/28/22 09:13 Oxygen Delivery Me thod Room Air 08/28/22 09:13 Oxygen Flow Rate 6 08/28/22 08:48 Exam: Pre-Anes Outpt Exam: alert, oriented x 3, clear to auscultation bilaterally and regular rate & rhythm Cardiac Studies: No Data to Display
[2022-08-28] MEDS: HYDROcodone-acetaminophen 10-325 mg Tablet PO ×3 (09:27→21:10)
[2022-08-28] MEDS: ketorolac 30 mg/mL INJ IVP (09:28)
[2022-08-28] MEDS: sodium chloride 0.9% 1,000 ML 100 ML IV ×2 (10:26→21:12)
[2022-08-28] MEDS: HYDROmorphone 1 mg/mL INJ 1 mL 0.5 MG IVP (10:31)
--- NOTE | 2022-08-28 11:40 | SUR.PHASEI ---
1130 Called back to OR room 2 and spoke with Kelsie,RN(OR nurse) and verified patient to remain flat and Dr. Rodriguez stated until am and informed [id number](Shiela RN) Med Surg Nurse who is pt's primary nurse and verbalized understanding
[2022-08-28] MEDS: aspirin 325 mg Tablet PO (12:54)
[2022-08-28] MEDS: multivitamin therapeutic Tablet 1 TAB PO (12:54)
[2022-08-28] MEDS: docusate sodium 100 mg Capsule PO ×2 (12:54→17:23)
[2022-08-28] MEDS: isosorbide mononitrate ER 60 mg Tablet PO (12:54)
[2022-08-28] MEDS: gabapentin 300 mg Capsule PO ×2 (12:54→17:23)
[2022-08-28] MEDS: pregabalin 75 mg Capsule PO ×3 (12:55→20:07)
[2022-08-28] MEDS: tizanidine 4 mg Tablet PO ×2 (12:55→17:23)
[2022-08-28] MEDS: lidocaine 5% Patch 1 PATCH TOPICAL (12:55)
[2022-08-28] MEDS: pantoprazole DR 40 mg Tablet PO (12:55)
[2022-08-28] MEDS: lactated ringers 1,000 ML 90 ML IV (13:04)
--- NOTE | 2022-08-28 14:55 | ANE.PACU2 ---
Inpatient post-anesthesia follow up: Airway intact: Yes Vital signs: Temperature 98 F Pulse Rate 67 Respiratory Rate 18 Blood Pressure 112/71 Pulse Oximetry 98 Oxygen Delivery Me thod Room Air Oxygen Flow Rate 6 Fraction of Inspir ed Oxygen Hydration adequate: Yes Nausea and vomiting: No Pain level: 3 Mental status: Baseline
[2022-08-28] MEDS: propranolol 20 mg Tablet PO ×2 (15:00→20:13)
[2022-08-28] MEDS: atorvastatin 40 mg Tablet 20 MG PO (17:23)
[2022-08-28] MEDS: ropinirole 0.25 mg Tablet 0.5 MG PO (20:07)
[2022-08-28] MEDS: cetirizine 10 mg Tablet PO (20:08)
[2022-08-28] MEDS: fluticasone nasal spray 16gm Btl 2 SPRAY INTRANASAL (20:13)
[2022-08-29 03:38] VITALS: BP 119/69; PULSE 74; RESP 19; TEMP 36.8; O2SAT 94
[2022-08-29] MEDS: HYDROcodone-acetaminophen 10-325 mg Tablet PO ×3 (05:57→16:08)
[2022-08-29] MEDS: duloxetine 60 mg Capsule PO (05:57)
[2022-08-29] MEDS: ceFAZolin 2,000 MG in sodium chloride 0.9% (plus) 50 ML 100 MG IV (06:01)
--- NOTE | 2022-08-29 07:07 | PM.PN ---
Subjective Subjective: POD 1 Resting comfortably. Denies headaches, chest pain, shortness of breath. Vitals/I&O/Wt Last Vital Signs Temp 98.3 F 08/29/22 03:38 Pulse 74 08/29/22 03:38 Resp 19 H 08/29/22 03:38 BP 119/69 08/29/22 03:38 Pulse Ox 94 08/29/22 03:38 O2 Del Method Room Air 08/28/22 14:01 O2 Flow Rate 6 08/28/22 08:48 08/28/22 08/29/22 08/29/22 22:59 06:59 14:59 Intake Total 1770 / 4410 50 / 4460 Output Total 700 / 1217 1025 / 2242 Balance 1070 / 3193 -975 / 2218 Weight last 48 hrs Weight 184 lb Physical Exam Narrative: Patient presents alert and oriented x3 with a good general appearance normal mood and affect. Normal coordination normal stability. Mild tenderness around the incisional site with the incision appear to be healing nicely. No signs of erythema or drainage. No signs of infection. Patient denies any fevers or chills. 5/5 motor strength both lower extremities with negative straight leg raise bilaterally. Calves are supple no medial thigh tenderness. Pulses are 2+ at the dorsalis pedis and posterior tibial region. Good capillary refill throughout normal sensation light touch both lower extremities. Urinary Catheter Management: Ponce: Cath Placed During This Visit: yes Reason for Continuing Indwelling Catheter: Required Immobilization for Trauma or Surgery or Anesthesia Urinary Catheter Date of Insertion: 08/28/22 Urinary Catheter Time of Insertion: 09:35 Data Micro: Microbiology 08/28/22 07:45 Gram Stain - Final Back A&P Assessment and plan (1) Dural tear: Begin slowly moving the head of bed up 30 degrees. And slowly work to getting her sitting up at the side of the bed. With physical therapy to work with mobilization. Once she is mobilizing we can discontinue the Ponce catheter and Hemovac drain. Hopeful discharge home tomorrow. SCDs for DVT prophylaxis as she is high risk of bleeding. Continue incentive spirometer for pulmonary toilet. (2) Wound drainage: Attestations Medical Necessity Statement*: Hopeful discharge home tomorrow. Coding Level of Care Code Acute Code for [facility] Diagnoses Dural tear G96.11 Wound drainage L24.A9
[2022-08-29 07:50] VITALS: BP 122/68; PULSE 58; RESP 16; TEMP 36.8; O2SAT 95
[2022-08-29] MEDS: lidocaine 5% Patch 1 PATCH TOPICAL (08:08)
[2022-08-29] MEDS: isosorbide mononitrate ER 60 mg Tablet PO (08:09)
[2022-08-29] MEDS: tizanidine 4 mg Tablet PO (08:11)
[2022-08-29] MEDS: aspirin 325 mg Tablet PO (08:11)
[2022-08-29] MEDS: docusate sodium 100 mg Capsule PO (08:11)
[2022-08-29] MEDS: pregabalin 75 mg Capsule PO ×2 (08:11→15:07)
[2022-08-29] MEDS: pantoprazole DR 40 mg Tablet PO (08:11)
[2022-08-29] MEDS: gabapentin 300 mg Capsule PO (08:11)
[2022-08-29] MEDS: multivitamin therapeutic Tablet 1 TAB PO (08:12)
[2022-08-29] MEDS: propranolol 20 mg Tablet PO ×2 (08:12→15:07)
[2022-08-29] MEDS: sodium chloride 0.9% 1,000 ML 100 ML IV (08:58)
--- NOTE | 2022-08-29 09:56 | PC.CHAP ---
Pastoral Care Encounter/Spiritual Assessment Type of Contact [] Declined aquatics specialist visit [] Patient/Family/Request visit [] Outpatient visit [] Follow-up visit [] Physician referral [] Code/Alert [x] Routine visit [] Staff referral [] Actively dying [] Patient sleeping [] Family support [] [] Out of room [] Palliative care [] [x] Receiving care in room [] Pre-surgical visit [] Trauma [] Long length of stay [] ICU visit [] Other: Relational/Emotional Strength [x] Patient feels connected with others/family/visitors/staff [] Distress [] Loneliness/isolation [] Abandonment Spirituality of Patient [x] Person of Carole [] Attends Anabaptism of their Carole [x] Believes in Prayer [] Reads Bible or Mandaen materials [] There are Spiritual issues to be addressed Long Term Care Phlebotomist Interventions [x] Prayer [x] Active listening [x] Non-anxious presence [x] Spiritual/emotional support [] Crisis/trauma care [x] Spiritual counseling [] Bereavement support [] Provided bereavement packet [] Provided Bible/devotional materials [] Provided toy/stuffed animal, coloring book to patient or family member [] Provided Communion [] Anointing/[place] [] Salvation [x] Completed spiritual assessment [] Other: Impact on Illness or Injury [] Angry [] Fearful [] Anxious [] Often cries [] Exhaustion [] Unable to work [] Unable to attend methodist [] Unable to walk/stand [] Unable to read [] Unable to drive [] Unable to eat/drink [] Unable to sleep [] Unable to be with family [] Patient intubated [] Other: Summary had hip surgery well need some rehab at home well go home has a good attitude Time spent with patient 10 mins
[2022-08-29] MEDS: diphenhydrAMINE 25 mg Capsule PO (10:31)
[2022-08-29] MEDS: lactated ringers 1,000 ML 90 ML IV (10:40)
[2022-08-29 11:44] VITALS: BP 92/60; PULSE 66; RESP 16; TEMP 36.7; O2SAT 94
[2022-08-29] MEDS: acetaminophen 325 mg Tablet 650 MG PO (13:44)
[2022-08-29 15:25] VITALS: BP 116/76; PULSE 58; RESP 16; TEMP 36.6; O2SAT 96
--- NOTE | 2022-08-29 15:40 | P.DS_ITS ---
Discharge Providers Date of Admission: 08/28/22 11:29 Date of Discharge: August 29, 2022 Attending Provider at Admission: Alexi Rodriguez DO Attending Provider at Discharge: Alexi Rodriguez DO Primary Care Provider: Nathaniel Simon MD Diagnoses at Discharge Discharge Diagnosis (1) Dural tear: Status: Acute (2) Wound drainage: Status: Acute Reason for Visit Reason for Visit: M54.9, M54.6 Physical Exam Urinary Catheter Management: Ponce: Cath Placed During This Visit: yes Reason for Continuing Indwelling Catheter: Required Immobilization for Trauma or Surgery or Anesthesia Urinary Catheter Date of Insertion: 08/28/22 Urinary Catheter Time of Insertion: 09:35 Discharge Data Studies Completed and Pending Pending at discharge Category Date Time Status Anaerobic Culture Routine Lab 08/28/22 07:45 Results Wound Culture and Gram Stain Routine Lab 08/28/22 07:45 Results Vitals Last Vital Signs Temp 97.9 F 08/29/22 15:25 Pulse 58 L 08/29/22 15:25 Resp 16 08/29/22 15:25 BP 116/76 08/29/22 15:25 Pulse Ox 96 08/29/22 15:25 O2 Del Method Room Air 08/29/22 11:44 O2 Flow Rate 6 08/28/22 08:48 Discharge Plan Discharge Patient Disposition: Home Condition: Stable Prescriptions: New hydrocodone-acetaminophen 10-325 mg tablet 1 tab PO Q4H PRN (Reason: pain) 7 Days Qty: 40 0RF Continued nitroglycerin [Nitrostat] 0.4 mg tablet, sublingual 0.4 mg SUBLINGUAL Q5M PRN (Reason: Chest Pain) aspirin 325 mg tablet 325 mg PO DAILY multivitamin Tablet 1 tab PO DAILY (DME) ASO to right See Rx Instructions .Route .MEDSUPPLY Qty: 1 0RF Rx Instructions: As directed acetylcysteine 600 mg capsule 600 mg PO BID Qty: 60 3RF Rx Instructions: Take one capsule twice per day pantoprazole [Protonix] 40 mg tablet,delayed release (DR/EC) 40 mg PO DAILY Qty: 90 1RF isosorbide mononitrate 60 mg tablet extended release 24 hr 60 mg PO DAILY Qty: 90 3RF diphenhydramine HCl [Benadryl Allergy] 25 mg tablet 25 mg PO DAILY PRN (Reason: Allergy Symptoms) sumatriptan succinate 25 mg tablet See Rx Instructions PO .COMPLEX Qty: 30 0RF Rx Instructions: take 1 tab at onset of headache; if no relief may repeat 1 tab after at least 2 hrs; max = 4 tabs/24 hr PO ondansetron HCl 4 mg tablet 4 mg PO Q8H PRN (Reason: nausea and vomiting) Qty: 30 0RF duloxetine [Cymbalta] 60 mg capsule,delayed release(DR/EC) 60 mg PO QAM Qty: 30 3RF Rx Instructions: Take one capsule every morning paliperidone [Invega] 1.5 mg tablet extended release 24 hr 1.5 mg PO QAM Qty: 30 3RF Rx Instructions: Take one tablet every morning lidocaine 5 % adhesive patch,medicated 1 patch topical DAILY Qty: 30 0RF Rx Instructions: leave on most painful area for up to 12 hrs gabapentin 300 mg capsule 300 mg PO BID Qty: 60 0RF epinephrine [EpiPen 2-Job] 0.3 mg/0.3 mL auto-injector 0.3 mg IM ONCE PRN (Reason: Allergy Symptoms) Qty: 2 0RF propranolol 20 mg tablet See Rx Instructions .ROUTE .COMPLEX Qty: 450 0RF Dose Instruction: TAKE 2 TABLETS BY MOUTH EVERY MORNING, 1 TABLET AT NOON AND 2 TABLET EVERY EVENING. Rx Instructions: TAKE 2 TABLETS BY MOUTH EVERY MORNING, 1 TABLET AT NOON AND 2 TABLET EVERY EVENING. pregabalin [Lyrica] 75 mg capsule 75 mg PO TID 30 Days Qty: 90 2RF hydrocodone-acetaminophen 10-325 mg tablet 1 tab PO .q4-6hrs PRN (Reason: pain) 5 Days Qty: 30 0RF cetirizine [Zyrtec] 10 mg tablet 10 mg PO BEDTIME Qty: 60 1RF fluticasone propionate [Flonase Allergy Relief] 50 mcg/actuation spray,suspension 2 spray intranasal BEDTIME Rx Instructions: administer into each nostril tizanidine 4 mg tablet 4 mg PO BID Rx Instructions: TAKE 1 TABLET BY MOUTH TWICE DAILY NEEDED FOR MUSCLE SPASMS simvastatin 20 mg tablet 20 mg PO QPM Rx Instructions: TAKE 1 TABLET BY MOUTH DAILY ropinirole 0.5 mg tablet 0.5 mg PO BEDTIME Rx Instructions: TAKE 1 TABLET BY MOUTH AT BEDTIME Discharge Orders: Discharge Order (Routine); Ordered 08/29/22 Ordered By: Alexi Rodriguez Discharge Diet: Advance as tolerated Discharge Activity: Limit activity as instructed Patient Instructions: Opioid Safety Activity Restrictions/Additional Instructions: Thank you for choosing [facility] for your care! The following is a list of instructions, from your provider, to follow upon your dis charge to ensure you have the optimal recovery from your recent injury or surgery. Follow-up care is a davila part of your treatment and safety. Be sure to make and go to all appointments and call your doctor if you are having problems. If you do not already have a follow-up appointment made, call Dr. Rodriguez's] office in the next 1-3 days to make follow up appointment for [address] Rodriguez at . It is also a good idea to know your test results and keep a list of the medicines you take. Medications will be prescribed for you at your provider's discretion. These medications are to be used as instructed; if they are taken more often that prescribed they will not be refilled early and in most cases will not be refilled at all. > When a refill is needed, you should contact angely allison 2-3 business days before your prescription runs out. Medications will NOT be refilled by service loss control consultant providers after hours! > Many pain medications contain Tylenol (Acetaminophen). Do not consume more than 4,000 mg of Tylenol per day in total with any combination of medications. > Pain medications can cause constipation. Please use an over the counter stool softener as directed, while taking pain medications. Consult your local pharmacist with questions or recommendations on stool softeners. If constipation persists, contact our office or your primary care provider. > While under our care, you are not to receive pain medications or other controlled substances from any other provider unless our office is notified and approves. Any attempts to do so will result in refusal to prescribe any further pain medications and possible dismissal from our practice. ? Walking is essential for the healing process after surgery. We would like you to slowly advance your walking. This should be done on relatively flat clear ground (inside or out) or can be done on a treadmill. Remember this goal does not have to happen all at once, slowly increase your distance and duration. This can be broken into more more than one walk per day as tolerated. Patients who walk as directed after surgery rarely require Physical Therapy. In the unlikely event this issue arises your provider will direct hospital staff to make the appropriate arrangements. ? No lifting over 5 pounds {a gallon of milk) or bending/twisting until further notice. Each of these activities places an unnecessary amount of stress onto the body and can impede the delicate healing process. > Instead of bending at the waist, keep your back straight and bend at th e knees. > Instead of twisting your torso, keep your back straight and turn your entire body with your feet. ? You may sleep in any position which makes you comfortable. Many patients find comfort sleeping in a reclining chair. It is not abnormal to have difficulty sleeping for the first several weeks following your surgery. We recommend trying Benadry! or Tylenol PM as directed to help with your sleeping difficulties. Both medications are over the counter and available without prescription. ? NO SMOKING!!! Smoking dramatically increases the probability of developing postoperative wound infections. ? Common complaints after lumbar and/or thoracic spine surgery include, but are not limited to: numbness and/or tingling in the legs, pain around the incision and surrounding tissues, muscle spasms, or stiffness of the middle to low back. Contact our office if these symptoms persist or if an acute change occurs. ? No driving for the first 3-5days, and not while taking narcotics until seen at your follow-up appointment and cleared. There are no restrictions for riding on short trips, however if you take a longer trip, arrangements should be made to make regular stops to get out of the vehicle and stretch . ? Swelling is an unfortunate event that will take place with any surgery and is the primary source of your postoperative discomfort. While walking and regular approved activities helps control inflammation, there are additional steps you can take to minimize swelling. > Place ice over the surgical site and surrounding tissue for twenty minutes, followed by applying a low/medium heat (heating pad) for an additional twenty minutes every 1-2 hours as needed for painrelief. > You may use of over the counter anti-inflammatory medications (Ibuprofen, Motrin, Aleve, Advil, etc) as directed on the package label. These types of medicines will significantly reduce the amount of discomfort you experience after surgery from swelling. It should be noted that if you have and allergy to any of these medications, or a history of ulcers or kidney disease you should consult you primary care provider prior to starting these medic ations. Discharge Attestations Time Spent in Discharge Care*: less than 30 min Quality Metrics Clinical Quality Measures [ No reported AMI, CVA or VTE this stay] Coding Level of Care Code Acute Code for [facility] Diagnoses Dural tear G96.11 Wound drainage L24.A9
[2022-08-29 18:32] VITALS: BP 116/76; PULSE 58; RESP 16; TEMP 36.6; O2SAT 96
== END 2022-08-29 17:23 | disposition home or self-care (01) | DRG 29 ==
LOC: MEDSURG 11:29
PROVIDERS: Admitting Provider Orthopaedic Surgery; PCP Family Medicine; Visit Provider Orthopaedic Surgery
PROC: 0JPT0MZ Removal of Stimulator Generator from Trunk Subcutaneous Tissue and Fascia, Open Approach (ICD-10-PCS; principal; 2022-08-28 07:00)
DX: T85.193A Other mechanical complication of implanted electronic neurostimulator, generator, initial encounter (principal); L76.34 Postprocedural seroma of skin and subcutaneous tissue following other procedure; Y83.1 Surgical operation with implant of artificial internal device as the cause of abnormal reaction of the patient, or of later complication, without mention of misadventure at the time of the procedure; I10 Essential (primary) hypertension; F43.12 Post-traumatic stress disorder, chronic; F41.0 Panic disorder [episodic paroxysmal anxiety]; E78.5 Hyperlipidemia, unspecified; Z86.73 Personal history of transient ischemic attack (TIA), and cerebral infarction without residual deficits; F17.210 Nicotine dependence, cigarettes, uncomplicated; G89.29 Other chronic pain; M54.50 Low back pain, unspecified; F41.9 Anxiety disorder, unspecified; F32.9 Major depressive disorder, single episode, unspecified; Z79.82 Long term (current) use of aspirin; G62.9 Polyneuropathy, unspecified; J44.9 Chronic obstructive pulmonary disease, unspecified
CPT/HCPCS: 51702; 87070; 87075; 87205; 97116; 97161; J0690; J1100; J1170; J1885; J2370; J2405; J2704; J2710; J3010; J3490; J7030; J7120

== ENCOUNTER → 2022-09-05 08:54 | Outpatient (BNVA) | payer MEDICARE, MEDICAID, SELFPAY | PROVIDERS: PCP Family Medicine; Visit Provider Physician Assistant | DX: Z98.1 Arthrodesis status (principal) | CPT/HCPCS: 99024 ==

== ENCOUNTER → 2022-09-12 13:31 | Outpatient (BNVA) | payer MEDICARE, MEDICAID, SELFPAY | PROVIDERS: PCP Family Medicine; Visit Provider Physician Assistant | DX: Z98.1 Arthrodesis status (principal) | CPT/HCPCS: 72100; 99024 ==

== ENCOUNTER → 2022-10-09 12:50 | Outpatient (BNVA) | payer MEDICARE, MEDICAID, SELFPAY | PROVIDERS: PCP Family Medicine; Visit Provider Physician Assistant | DX: Z98.1 Arthrodesis status (principal) | CPT/HCPCS: 72100; 99024 ==

== ENCOUNTER → 2022-11-21 13:21 | Outpatient (BNVA) | payer MEDICARE, MEDICAID, SELFPAY | PROVIDERS: PCP Family Medicine; Visit Provider Physician Assistant | DX: M79.605 Pain in left leg; M21.70 Unequal limb length (acquired), unspecified site; M16.12 Unilateral primary osteoarthritis, left hip | CPT/HCPCS: 72100; 72170; 99024; 99213 ==

== ENCOUNTER 2022-11-27 14:50 | Emergency (ER) | payer MEDICARE, MEDICAID, SELFPAY ==
[2022-11-27 15:05] VITALS: BP 149/87; PULSE 57; RESP 16; TEMP 36.7; O2SAT 100; BMI 27.8
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
--- NOTE | 2022-11-27 15:15 | XR_ITS ---
WS: [id number] Exam: XR knee LT 3V* [id number] Date/Time of Exam: 11/27/2022 3:33 PM Reason For Exam: trauma/injury No fracture or dislocation. No joint effusion. Minimal degenerative changes are noted. Normal soft ti ssues. IMPRESSION: 1. No fracture. 2. Mild degenerative changes.
[2022-11-27 15:46] VITALS: RESP 16
[2022-11-27] MEDS: morphine 4 mg/mL SDV 1 mL IM (15:46)
[2022-11-27 16:05] VITALS: BP 148/64; PULSE 49; RESP 16; O2SAT 98
--- NOTE | 2022-11-27 16:07 | PC.NURSE ---
DR. DEL RIO NOTIFIED OF PT HR. PT ASYMPTOMATIC. PT DENIES CHEST PAIN, DIZZINESS, WEAKNESS, SKIN WARM AND DRY
== END 2022-11-27 16:07 | disposition home or self-care (01) ==
PROVIDERS: Emergency Provider Physician Assistant; PCP Family Medicine
DX: S89.92XA Unspecified injury of left lower leg, initial encounter (principal); Z79.82 Long term (current) use of aspirin; F17.210 Nicotine dependence, cigarettes, uncomplicated; Z86.73 Personal history of transient ischemic attack (TIA), and cerebral infarction without residual deficits; I10 Essential (primary) hypertension; W54.1XXA Struck by dog, initial encounter
CPT/HCPCS: 73562; 96372; 99284; E0114; J2270

== ENCOUNTER → 2022-12-19 10:00 | Outpatient (BNVA) | payer MEDICARE, OTHER, SELFPAY | PROVIDERS: PCP Family Medicine; Visit Provider Nurse Practitioner Psychiatric/Mental Health | DX: Z79.899 Other long term (current) drug therapy (principal) | CPT/HCPCS: 80053; 80061; 83036 ==

== ENCOUNTER → 2022-12-23 14:45 | Outpatient (BNVA) | payer MEDICARE, MEDICAID, SELFPAY | PROVIDERS: PCP Family Medicine; Visit Provider Internal Medicine Cardiovascular Disease | DX: R07.9 Chest pain, unspecified (principal); R00.1 Bradycardia, unspecified; I10 Essential (primary) hypertension; I47.10 Supraventricular tachycardia, unspecified; F17.210 Nicotine dependence, cigarettes, uncomplicated | CPT/HCPCS: 93005; 99214 ==

== ENCOUNTER → 2023-01-01 14:34 | Outpatient (BNVA) | payer MEDICARE, MEDICAID, SELFPAY | PROVIDERS: PCP Family Medicine; Visit Provider Physician Assistant | DX: Z98.1 Arthrodesis status (principal) | CPT/HCPCS: 72100; 99024 ==

== ENCOUNTER → 2023-01-06 09:59 | Outpatient (BNVA) | payer MEDICARE, MEDICAID, SELFPAY | PROVIDERS: PCP Family Medicine; Referring Provider Internal Medicine Cardiovascular Disease; Visit Provider Internal Medicine Cardiovascular Disease | DX: R00.1 Bradycardia, unspecified (principal); R07.9 Chest pain, unspecified | CPT/HCPCS: 93242 ==

== ENCOUNTER → 2023-01-16 09:08 | Outpatient (BNVA) | payer MEDICARE, MEDICAID, SELFPAY | PROVIDERS: PCP Family Medicine; Visit Provider Orthopaedic Surgery | DX: Z98.1 Arthrodesis status (principal) | CPT/HCPCS: 99214 ==

== ENCOUNTER → 2023-02-20 13:10 | Outpatient (BNVA) | payer MEDICARE, MEDICAID, SELFPAY | PROVIDERS: PCP Family Medicine; Visit Provider Orthopaedic Surgery | DX: Z98.1 Arthrodesis status (principal); Z47.89 Encounter for other orthopedic aftercare | CPT/HCPCS: 72100; 99213 ==

== ENCOUNTER → 2023-02-24 13:57 | Outpatient (BNVA) | payer MEDICARE, MEDICAID, SELFPAY | PROVIDERS: PCP Family Medicine; Visit Provider Nurse Practitioner Family | DX: I10 Essential (primary) hypertension (principal); R00.1 Bradycardia, unspecified; Z86.73 Personal history of transient ischemic attack (TIA), and cerebral infarction without residual deficits; F17.210 Nicotine dependence, cigarettes, uncomplicated | CPT/HCPCS: 99214 ==

== ENCOUNTER → 2023-04-03 15:17 | Outpatient (BNVA) | payer MEDICARE, MEDICAID, SELFPAY | PROVIDERS: PCP Family Medicine; Visit Provider Orthopaedic Surgery | DX: M54.9 Dorsalgia, unspecified (principal); M79.605 Pain in left leg; Z98.1 Arthrodesis status | CPT/HCPCS: 72100; 99214 ==

== ENCOUNTER → 2023-04-21 11:09 | Outpatient (BNVA) | payer MEDICARE, MEDICAID, SELFPAY | PROVIDERS: PCP Family Medicine; Visit Provider Family Medicine | DX: S62.396A Other fracture of fifth metacarpal bone, right hand, initial encounter for closed fracture (principal); W22.8XXA Striking against or struck by other objects, initial encounter | CPT/HCPCS: 73130 ==

== ENCOUNTER 2023-04-23 09:08 | Outpatient (CLI) | payer MEDICARE, MEDICAID, SELFPAY ==
--- NOTE | 2023-04-23 09:11 | CT_ITS ---
WS: [id number] CT MYELOGRAM LUMBAR SPINE HISTORY: lumbar pain TECHNIQUE: Contiguous 2.0 mm axial imaging performed from T12 through the mid sacral level. Bone and soft tissue windows reviewed. Sagittal and coronal reformats are submitted and reviewed. DLP: 806.[address] scans at [facility] use at least one of these dose optimization techniques: automated e xposure control; mA and/or kV adjustment per patient size (includes targeted exams where dose is matc hed to clinical indication); or iterative reconstruction. COMPARISON: 12/28/2022 Posterior lumbar fusion extends from L3 to the sacrum. Bilateral sacral screws are also present. Pedi selene screws and bilateral vertical rods. No hardware fracture is identified. Interbody spacer at L4-5. L4 anterolisthesis by 5.8 mm similar to the prior study. There is very is mild lucency surrounding t he L3 pedicle screws. No definite lucency surrounding the sacral pedicle screws. Of note is mild wide puja of the SI joints as compared to 12/28/2022. There is a new L2 compression fracture by 10%. Very slight retropulsion of the posterior superior end plate. L1-L2: Mild annular disc bulging. No stenosis. L2-L3: Diffuse mild annular disc bulging with ligamentum flavum and facet arthritis. Very mild encroa chment upon the central canal. L3-L4: Diffuse annular disc bulging. Shallow RIGHT foraminal disc protrusion. There is a large gameroom technician ior laminectomy defect. No central stenosis. L4-L5: There is a large posterior laminectomy defect. Thecal sac is widely patent. Mild clumping of t he nerve roots. No stenosis. L5-S1: Osteophytic ridging. Disc space is not well visualized. No stenosis identified. Posterior bone fusion graft. Disc base and foramina are poorly visualized. Paravertebral soft tissues are negative. IMPRESSION: 1. Prior posterior fusion from L2-3 through the sacrum. Interbody spacer at L4-5. 2. L4 anterolisthesis by 5.8 mm is stable. 3. Very slight lucency surrounding the L3 vertebral body screws may indicate loosening. 4. New L2 compression fracture by 10%. 5. L2-3: Mild central stenosis. 6. Large posterior laminectomy defects at L3-4 and L4-5. 7. Shallow RIGHT foraminal disc protrusion at L3-4. 8. Poor visualization of the LEFT L4-5 and L5-S1 foramina.
--- NOTE | 2023-04-23 09:30 | IR_ITS ---
WS: [id number] LUMBAR MYELOGRAM HISTORY: lumbar pain COMPARISON: Prior radiographs 04/03/2023 and 02/20/2023 FLUOROSCOPY TIME: 1min [id number] # of spot films: 6 Procedure, risks and complications were explained to the patient. Risks including bleeding, infection , headaches, allergic reaction and seizures. Consent has been obtained. With the patient in prone position the skin over the lumbar region is cleansed with ChloraPrep and an esthetized with lidocaine. 22-gauge spinal needle is inserted into the thecal sac at the appropriate level determined by fluoroscopy. Omnipaque 240; 12 ml is injected slowly under fluoroscopy with no co mplications. Needle bevel is perpendicular to the longitudinal fibers of the dura. Stylet is reinsert ed prior to removal of the needle. Patient tolerated the procedure well. Patient will proceed to CT f or further evaluation. Good contrast opacification of the thecal sac. Extensive posterior lumbar hardware extending from L3 to the sacrum. No hardware fracture identified. Slight lucency surrounding the L3 pedicle screws iden tified radiographically. L2 10% compression fracture is noted on 04/03/2023 but new since 02/20/2023 Interbody spacer at L4-5 is normal. Slight anterolisthesis of L4. IMPRESSION: 1. Uncomplicated lumbar myelogram. 2. Subacute L2 compression fracture by 10%. New since 02/20/2023. Identified on the radiographs of . 3. Extensive posterior lumbosacral fusion extending from L3 to the sacrum. There is slight lucency s urrounding the L3 pedicle screws.
== END 2023-04-23 09:09 | disposition home or self-care (01) ==
LOC: RAD 09:08
PROVIDERS: PCP Family Medicine; Visit Provider Orthopaedic Surgery
DX: Z98.1 Arthrodesis status (principal); M48.56XA Collapsed vertebra, not elsewhere classified, lumbar region, initial encounter for fracture; M51.26 Other intervertebral disc displacement, lumbar region
CPT/HCPCS: 62304; 72132; Q9966

== ENCOUNTER 2023-05-02 06:00 | Outpatient (CLI) | payer OTHER, MEDICAID, SELFPAY | END 2023-05-02 23:59 | disposition home or self-care (01) | LOC: SPT 05-05 08:14 | PROVIDERS: PCP Family Medicine; Visit Provider Family Medicine | DX: Z46.89 Encounter for fitting and adjustment of other specified devices (principal); M54.59 Other low back pain | CPT/HCPCS: L0456 ==

== ENCOUNTER → 2023-05-02 10:57 | Outpatient (BNVA) | payer OTHER, MEDICAID, SELFPAY | PROVIDERS: PCP Family Medicine; Visit Provider Orthopaedic Surgery | DX: S32.020D Wedge compression fracture of second lumbar vertebra, subsequent encounter for fracture with routine healing (principal); X58.XXXD Exposure to other specified factors, subsequent encounter; Z98.1 Arthrodesis status; Z46.89 Encounter for fitting and adjustment of other specified devices; M54.59 Other low back pain | CPT/HCPCS: 99214; L0456 ==

== ENCOUNTER → 2023-05-29 08:28 | Outpatient (BNVA) | payer OTHER, MEDICAID, SELFPAY | PROVIDERS: Visit Provider Orthopaedic Surgery | DX: S32.020D Wedge compression fracture of second lumbar vertebra, subsequent encounter for fracture with routine healing (principal); X58.XXXD Exposure to other specified factors, subsequent encounter | CPT/HCPCS: 99213 ==

== ENCOUNTER → 2023-06-12 10:06 | Outpatient (BNVA) | payer MEDICARE, MEDICAID, SELFPAY | PROVIDERS: PCP Family Medicine; Visit Provider Internal Medicine Cardiovascular Disease | DX: Q24.5 Malformation of coronary vessels (principal); I10 Essential (primary) hypertension; F33.2 Major depressive disorder, recurrent severe without psychotic features; F17.210 Nicotine dependence, cigarettes, uncomplicated | CPT/HCPCS: 99214 ==

== ENCOUNTER → 2023-06-20 11:49 | Outpatient (BNVA) | payer MEDICARE, MEDICAID, SELFPAY | PROVIDERS: PCP Family Medicine; Visit Provider Family Medicine | DX: M19.011 Primary osteoarthritis, right shoulder (principal) | CPT/HCPCS: 73030 ==

== ENCOUNTER → 2023-06-24 13:49 | Outpatient (BNVA) | payer OTHER, MEDICAID, SELFPAY | PROVIDERS: PCP Family Medicine; Visit Provider Orthopaedic Surgery | DX: Z98.1 Arthrodesis status (principal); S32.020D Wedge compression fracture of second lumbar vertebra, subsequent encounter for fracture with routine healing; X58.XXXD Exposure to other specified factors, subsequent encounter | CPT/HCPCS: 72100; 99213 ==

== ENCOUNTER → 2023-07-22 10:20 | Outpatient (BNVA) | payer OTHER, MEDICAID, SELFPAY | PROVIDERS: PCP Family Medicine; Visit Provider Orthopaedic Surgery | DX: S32.020D Wedge compression fracture of second lumbar vertebra, subsequent encounter for fracture with routine healing (principal); Z98.1 Arthrodesis status; X58.XXXD Exposure to other specified factors, subsequent encounter | CPT/HCPCS: 72100; 99213 ==

== ENCOUNTER → 2023-09-04 10:26 | Outpatient (BNVA) | payer MEDICARE, MEDICAID, SELFPAY | PROVIDERS: PCP Family Medicine; Visit Provider Orthopaedic Surgery | DX: Z98.1 Arthrodesis status (principal) | CPT/HCPCS: 72100; 99213 ==

== ENCOUNTER → 2023-10-23 12:59 | Outpatient (BNVA) | payer MEDICARE, MEDICAID, SELFPAY | PROVIDERS: PCP Family Medicine; Visit Provider Orthopaedic Surgery | DX: Z98.1 Arthrodesis status (principal) | CPT/HCPCS: 72050; 99214 ==

== ENCOUNTER 2023-11-19 13:00 | Outpatient (CLI) | payer MEDICARE, MEDICAID, SELFPAY ==
--- NOTE | 2023-11-19 13:00 | MR_ITS ---
WS: [id number] MRI CERVICAL SPINE NONCONTRAST TECHNIQUE: Sagittal T1, T2 and STIR imaging. Axial T2, gradient, and fiesta imaging. CLINICAL INFORMATION: neck pain COMPARISON: 02/18/2022 FINDINGS: Straightening of the normal cervical lordosis. Prior postoperative changes ACDF C5-C7. Disc bulging w orse at C4-5. C7 fusion is new since the prior CT. C2-C3: Mild facet arthropathy. C3-C4: Mild disc bulge with a tiny shallow central protrusion. Moderate facet arthropathy. Mild LEFT foraminal narrowing. Spinal canal is patent. C4-C5: Tiny central disc osteophyte protrusion. Slight effacement of the ventral thecal sac. Mild LEF T bony foraminal narrowing. Mild facet arthropathy. C5-C6: ACDF. Mild LEFT bony foraminal narrowing. Spinal canal is patent. C6-C7: ACDF. Moderate to severe LEFT and moderate RIGHT bony foraminal narrowing. Spinal canal is pat ent. C7-T1: Slight anterolisthesis C7 on T1. Mild disc bulging. Moderate LEFT and mild RIGHT bony foramina l narrowing. Spinal canal is patent. Small central protrusions in the upper thoracic spine at T2-3 and T3-4. Visualized brain stem structures: Normal. Prevertebral soft tissues: Normal. MR/MR cervical spin wo con* [id number] IMPRESSION: 1. Straightening of the normal cervical lordosis. 2. Postoperative changes ACDF C5-C7. Cord signal is normal. No significant ld tral canal stenosis. 3. Tiny central disc osteophyte protrusion C4-5 with slight effacement of vent ral thecal sac. 4. Bony foraminal narrowing moderate to severe LEFT C6-7 and moderate RIGHT C6 -7. Moderate LEFT C7-T1 bony foraminal narrowing.
== END 2023-11-19 13:06 | disposition home or self-care (01) ==
PROVIDERS: PCP Family Medicine; Visit Provider Orthopaedic Surgery
DX: M99.61 Osseous and subluxation stenosis of intervertebral foramina of cervical region (principal); M47.892 Other spondylosis, cervical region; M25.78 Osteophyte, vertebrae; M43.22 Fusion of spine, cervical region
CPT/HCPCS: 72141

== ENCOUNTER → 2023-11-25 08:43 | Outpatient (BNVA) | payer MEDICARE, MEDICAID, SELFPAY | PROVIDERS: PCP Family Medicine; Referring Provider Family Medicine; Visit Provider Student in an Organized Health Care Education/Training Program | DX: K27.9 Peptic ulcer, site unspecified, unspecified as acute or chronic, without hemorrhage or perforation (principal) | CPT/HCPCS: 99204; 99214 ==

== ENCOUNTER 2023-12-02 06:05 | Day surgery (SDC) | payer MEDICARE, MEDICAID, SELFPAY ==
[2023-12-02 06:30] VITALS: BP 143/90; PULSE 53; RESP 18; TEMP 36.3; O2SAT 100; BMI 25.7
[2023-12-02] MEDS: sodium chloride 0.9% 1,000 ML 30 ML IV (06:34)
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
[2023-12-02 07:26] VITALS: BP 98/60; RESP 18; TEMP 36.3; O2SAT 92
[2023-12-02 07:36] VITALS: BP 103/68; PULSE 66; RESP 18; TEMP 36.2; O2SAT 97
--- NOTE | 2023-12-02 07:53 | ANE.PACU2 ---
Inpatient post-anesthesia follow up: Airway intact: Yes Vital signs: Temperature 97.1 F Pulse Rate 66 Respiratory Rate 18 Blood Pressure 103/68 Pulse Oximetry 97 Oxygen Delivery Me thod Room Air Oxygen Flow Rate 3 Fraction of Inspir ed Oxygen Hydration adequate: Yes Nausea and vomiting: No Pain level: 1 Mental status: Baseline
== END 2023-12-02 07:54 | disposition home or self-care (01) ==
PROVIDERS: PCP Family Medicine; Visit Provider Student in an Organized Health Care Education/Training Program
PROC: 0DJ08ZZ Inspection of Upper Intestinal Tract, Via Natural or Artificial Opening Endoscopic (ICD-10-PCS; CPT 43235; principal; 2023-12-02 07:00)
DX: Z87.11 Personal history of peptic ulcer disease (principal); K21.00 Gastro-esophageal reflux disease with esophagitis, without bleeding; K22.2 Esophageal obstruction; K44.9 Diaphragmatic hernia without obstruction or gangrene; K29.70 Gastritis, unspecified, without bleeding; J44.9 Chronic obstructive pulmonary disease, unspecified; I10 Essential (primary) hypertension; E78.5 Hyperlipidemia, unspecified; Z79.82 Long term (current) use of aspirin; F17.210 Nicotine dependence, cigarettes, uncomplicated
CPT/HCPCS: 43239; 88305; J2250; J2704; J3010; J7030

== ENCOUNTER → 2024-01-06 09:05 | Outpatient (BNVA) | payer MEDICARE, MEDICAID, SELFPAY | PROVIDERS: PCP Family Medicine; Visit Provider Student in an Organized Health Care Education/Training Program | DX: Z09 Encounter for follow-up examination after completed treatment for conditions other than malignant neoplasm (principal) | CPT/HCPCS: 99214 ==

== ENCOUNTER → 2024-01-14 08:51 | Outpatient (BNVA) | payer MEDICARE, OTHER, SELFPAY | PROVIDERS: PCP Family Medicine; Visit Provider Nurse Practitioner Psychiatric/Mental Health | DX: Z79.899 Other long term (current) drug therapy (principal) | CPT/HCPCS: 80053; 80061; 83036 ==

== ENCOUNTER 2024-02-20 13:26 | Outpatient (CLI) | payer MEDICARE, MEDICAID, SELFPAY ==
--- NOTE | 2024-02-20 13:30 | MM_ITS ---
WS: [id number] BILATERAL 3D TOMOSYNTHESIS DIGITAL SCREENING MAMMOGRAM WITH CAD CLINICAL INFORMATION: screening HISTORY: Screening mammogram. No current complaints. COMPARISON: 2021 TECHNIQUE: Bilateral CC and MLO. FINDINGS: The breast are composed of extremely dense tissue, which can limit the detection of small underlying mass lesions. Similar-appearing dense nodular breast tissue. No suspicious focal mass, asymmetry, hanane cifications, or architectural distortion. No evidence of malignancy. Incidental punctate calcificatio ns. MM/MM [facility] tomosynthesis [id number] IMPRESSION: DENSITY: The breasts are heterogeneously dense, which may obscure small masses. BI-RADS: 2 - Benign FOLLOW UP: 1 Year Follow-up Recommend return to annual screening mammography.
== END 2024-02-20 13:27 | disposition home or self-care (01) ==
LOC: RAD 13:26
PROVIDERS: PCP Family Medicine; Visit Provider Family Medicine
DX: Z12.39 Encounter for other screening for malignant neoplasm of breast (principal); Z12.31 Encounter for screening mammogram for malignant neoplasm of breast; R92.333 Mammographic heterogeneous density, bilateral breasts; R92.1 Mammographic calcification found on diagnostic imaging of breast
CPT/HCPCS: 77063; 77067

== ENCOUNTER → 2024-03-19 10:13 | Outpatient (BNVA) | payer MEDICARE, MEDICAID, SELFPAY | PROVIDERS: PCP Family Medicine; Visit Provider Family Medicine | DX: I10 Essential (primary) hypertension (principal); Z72.51 High risk heterosexual behavior; Z79.899 Other long term (current) drug therapy | CPT/HCPCS: 85025; 86705; 86706; 86709; 86803; 87340; 87806 ==

== ENCOUNTER → 2024-03-25 13:42 | Outpatient (BNVA) | payer MEDICARE, MEDICAID, SELFPAY | PROVIDERS: PCP Family Medicine; Visit Provider Orthopaedic Surgery | DX: M54.2 Cervicalgia (principal) | CPT/HCPCS: 72040; 99213 ==

== ENCOUNTER → 2024-04-06 08:43 | Outpatient (BNVA) | payer MEDICARE, OTHER, SELFPAY | PROVIDERS: PCP Family Medicine; Referring Provider Orthopaedic Surgery; Visit Provider Anesthesiology Pain Medicine | DX: M48.02 Spinal stenosis, cervical region; M47.22 Other spondylosis with radiculopathy, cervical region | CPT/HCPCS: 99204 ==

== ENCOUNTER → 2024-06-22 12:53 | Outpatient (BNVA) | payer MEDICARE, SELFPAY | PROVIDERS: PCP Family Medicine; Visit Provider Orthopaedic Surgery | DX: Z01.818 Encounter for other preprocedural examination (principal); Z98.1 Arthrodesis status | CPT/HCPCS: 36415; 80053; 81001; 85025; 87086; 99214 ==

== ENCOUNTER 2024-07-05 09:18 | Day surgery (SDC) | payer MEDICARE, MEDICAID, SELFPAY ==
[2024-07-05] VITALS (13 sets, daily range): BP systolic 120–145; BP diastolic 72–98; PULSE 59–75; RESP 12–24; TEMP 36.3–36.8; O2SAT 96–100; BMI 26.1
[2024-07-05] MEDS: sodium chloride 0.9% 1,000 ML 30 ML IV (09:58)
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
[2024-07-05] MEDS: ceFAZolin 2,000 mg SDV 2000 MG IVP (11:40)
[2024-07-05] MEDS: lidocaine-epi 1% 20 mL INJ INJECTION (12:26)
--- NOTE | 2024-07-05 12:54 | PM.OP ---
Operative Report Date of procedure: July 05, 2024 Pre-op diagnosis: Cervical stenosis with radiculopathy Post-op diagnosis: same Procedure done: 1. Anterior diskectomy C4/5 2. Insertion of cage C4/5 3. Instrumentation with anterior plate from C4/5 4. Use of allograft Surgeon: Alexi Rodriguez DO Estimated blood loss (mL): 15 Brief History: 1. Anterior diskectomy C4/5 2. Insertion of cage C4/5 3. Instrumentation with anterior plate from C4/5 4. Use of allograft The patient was taken to the operating room, where he underwent general endotracheal anesthesia without complications. He was then positioned supine on the operating table, and all areas of impingement were well padded. The arms were carefully padded and tucked at his sides. A roll was placed between the shoulder blades.. An x-ray was done to determine the appropriate level for the skin incision. The entire neck was then sterilely prepped and draped in the usual fashion. Neuromonitoring was attached prior to prepping. A transverse skin incision was made and carried down to the platysma muscle. This was then split in line with its fibers. Blunt dissection was carried down medial to the carotid sheath and lateral to the trachea and esophagus until the anterior cervical spine was visualized. A needle was placed into a disc and an x-ray was done to determine its location. The longus colli muscles were then elevated bilaterally with the electrocautery unit. Self-retaining retractors were placed deep to the longus colli muscle. Attention was brought to the C4/5 level that was confirmed on x-ray. The microscope was then brought in. A radical anterior discectomies were performed at C4/5. This included complete removal of the anterior annulus, nucleus, and posterior annulus. The posterior longitudinal ligament was removed as were the posterior osteophytes. Foraminotomies were then accomplished bilaterally. This was done using a high speed donald, kerrison rongeurs and curretes Once all of this was accomplished, the curved currette was used to check for any residual compression. The central canal was wide open as were the foramen. A high-speed bur was used to remove the cartilaginous endplates above and below the interspace. Bleeding cancellous bone was exposed. The disc space were measured and appropriate size cage were placed sterilely onto the field. Allograft graft was packed into the cages. The cage was then placed and there was good juxtaposition against the bleeding decorticated surfaces and good distraction of each interspace. Two screws were then placed into each of the vertebral bodies at C4 and C5. There was excellent purchase. A final x-ray was done confirming good position of the hardware and Cages. The locking screws were then applied, also with excellent purchase. Following a final copious irrigation, there was good hemostasis and no dural leaks. The carotid pulse was strong. The wounds were then closed in layers using 2-0 Vicryl suture for the platysma muscle, 2-0 Vicryl suture for the subcutaneous tissue, and 4-0 monocryl suture in a subcuticular skin closure. Glue was placed followed by application of a sterile dressing. The drain was hooked to bulb suction. A soft collar was applied. The patient was then carefully returned to the supine position on his hospital bed where he was reversed and extubated and taken to the recovery room having tolerated the procedure well.
--- NOTE | 2024-07-05 13:21 | XR_ITS ---
WS: [id number] Exam: XR cervical spine 3V* [id number] Date/Time of Exam: 07/05/2024 1:21 PM Reason For Exam: or pic, acdf AP and lateral intraoperative C-arm images of the lower cervical spine are submitted. Recent anterior fusion and disc replacement noted at the C4-5 disc level. Pre- existing anterior fusion hardware extends from C5-C7. Images obtained for intraoperative visualization purposes.
[2024-07-05] MEDS: ondansetron 2 mg/ML SDV 2 mL 4 MG IVP (13:25)
[2024-07-05] MEDS: fentaNYL 50 mcg/mL INJ 2mL IVP (13:27)
[2024-07-05] MEDS: HYDROcodone-acetaminophen 10-325 mg Tablet 2 TAB PO (13:57)
--- NOTE | 2024-07-05 14:35 | ANE.PACU2 ---
Inpatient post-anesthesia follow up: Airway intact: Yes Vital signs: Temperature 97.7 F Pulse Rate 59 Respiratory Rate 18 Blood Pressure 145/81 Pulse Oximetry 99 Oxygen Delivery Me thod Room Air Oxygen Flow Rate 10 Fraction of Inspir ed Oxygen Hydration adequate: Yes Nausea and vomiting: No Pain level: 1 Mental status: Baseline
--- NOTE | 2024-07-06 14:26 | W.PM.OPSUD ---
Surgery/Procedure H&P Update DATE OF PROCEDURE: July 06, 2024 DATE H&P PERFORMED: 06/22/24 H&P UPDATE INFORMATION: I have reviewed H&P completed within last 30 days, I have examined patient prior to procedure and No changes to prior documentation PREOP DIAGNOSIS: Cervical stenosis with radiculopathy PLANNED PROCEDURE: Operation Date: 07/05/24 11:20 Proposed Procedures p Anterior Cervical Discectomy & Fusion ACDF w/ Anterior Interbody Fusion w/ Cage w/ Instrumentation w/ Allograft w/ Navigation(Not Applicable) - Alexi Rodriguez DO
== END 2024-07-05 14:35 | disposition home or self-care (01) ==
PROVIDERS: PCP Family Medicine; Visit Provider Orthopaedic Surgery
PROC: 0RB30ZZ Excision of Cervical Vertebral Disc, Open Approach (ICD-10-PCS; CPT 22551; principal; 2024-07-05 11:00)
DX: M48.02 Spinal stenosis, cervical region (principal); M54.12 Radiculopathy, cervical region; K21.9 Gastro-esophageal reflux disease without esophagitis; F17.210 Nicotine dependence, cigarettes, uncomplicated; I10 Essential (primary) hypertension; Z79.899 Other long term (current) drug therapy; R01.1 Cardiac murmur, unspecified; Z79.82 Long term (current) use of aspirin; Z88.8 Allergy status to other drugs, medicaments and biological substances; Z86.73 Personal history of transient ischemic attack (TIA), and cerebral infarction without residual deficits
CPT/HCPCS: 22551; 22853; 20930; 72040; 76000; C1713; C9359; J0330; J0690; J2250; J2405; J2704; J3010; J3490; J7030; J9999

== ENCOUNTER → 2024-07-15 08:30 | Outpatient (BNVA) | payer MEDICARE, MEDICAID, SELFPAY | PROVIDERS: PCP Family Medicine; Visit Provider Orthopaedic Surgery | DX: Z98.1 Arthrodesis status (principal) | CPT/HCPCS: 99024 ==

== ENCOUNTER → 2024-08-12 08:55 | Outpatient (BNVA) | payer MEDICARE, MEDICAID, SELFPAY | PROVIDERS: PCP Family Medicine; Visit Provider Orthopaedic Surgery | DX: Z98.1 Arthrodesis status (principal) | CPT/HCPCS: 72040; 99024 ==

== ENCOUNTER → 2024-08-17 15:45 | Outpatient (BNVA) | payer MEDICARE, OTHER, SELFPAY | PROVIDERS: PCP Family Medicine; Visit Provider Internal Medicine Cardiovascular Disease | DX: I47.10 Supraventricular tachycardia, unspecified (principal); I10 Essential (primary) hypertension; R00.1 Bradycardia, unspecified; Q24.5 Malformation of coronary vessels; Z79.82 Long term (current) use of aspirin; F17.210 Nicotine dependence, cigarettes, uncomplicated; Z86.73 Personal history of transient ischemic attack (TIA), and cerebral infarction without residual deficits | CPT/HCPCS: 99214 ==

== ENCOUNTER → 2024-09-23 08:10 | Outpatient (BNVA) | payer OTHER, MEDICAID, SELFPAY | PROVIDERS: PCP Family Medicine; Visit Provider Orthopaedic Surgery | DX: Z98.1 Arthrodesis status (principal) | CPT/HCPCS: 72040; 99024 ==

== ENCOUNTER → 2024-10-22 14:15 | Outpatient (BNVA) | payer OTHER, MEDICAID, SELFPAY | PROVIDERS: PCP Family Medicine; Visit Provider Emergency Medicine | DX: B34.9 Viral infection, unspecified (principal); R10.9 Unspecified abdominal pain; R39.9 Unspecified symptoms and signs involving the genitourinary system | CPT/HCPCS: 81000; 87086; 87400; 87426 ==

== ENCOUNTER → 2024-11-11 10:13 | Outpatient (BNVA) | payer OTHER, MEDICAID, SELFPAY | PROVIDERS: PCP Family Medicine; Visit Provider Orthopaedic Surgery | DX: Z98.1 Arthrodesis status (principal); G44.009 Cluster headache syndrome, unspecified, not intractable | CPT/HCPCS: 72040; 99213 ==

== ENCOUNTER → 2024-11-17 13:37 | Outpatient (BNVA) | payer MEDICARE, OTHER, SELFPAY | PROVIDERS: PCP Family Medicine; Visit Provider Nurse Practitioner Psychiatric/Mental Health | DX: Z79.899 Other long term (current) drug therapy (principal) | CPT/HCPCS: 80061; 83036 ==

== ENCOUNTER 2024-11-25 10:32 | Outpatient (CLI) | payer OTHER, MEDICAID, SELFPAY ==
--- NOTE | 2024-11-25 10:15 | MR_ITS ---
WS: [id number] MRI CERVICAL SPINE NONCONTRAST HISTORY: Headache after cervical spine fusion COMPARISON: Radiograph 11/11/2024 and MRI 11/19/2023 Technique: Multiplanar, multisequence noncontrast imaging of the cervical spine. Since the prior MRI patient's undergone revision of the anterior cervical fusion. There is now additional anterior fusion hardware at C4-5. Additional fusion hardware extends from C5-C7. Posterior alignment appears appropriate. Facet joints are normally aligned. Craniocervical junction, C1 and C2 relationship, odontoid process and soft tissues are normal. C2-C3: Normal. C3-C4: Mild bilateral facet arthritis. There is a small amount of edema in the RIGHT lateral C4 vertebral body which may be related to the recent fusion surgery. C4-C5: No high-grade stenosis. Mild facet arthritis. There is a small amount of edema in the LEFT superior articular facet of C5. C5-C6: Mild osteophytic ridging and facet arthritis. Moderate bilateral foraminal stenosis. C6-C7: Mild bilateral foraminal stenosis due to uncovertebral osteophytes. C7-T1: Normal. No paravertebral fluid collections identified. There is some mild soft tissue edema greatest on the RIGHT at the C4-5 and C5-6 levels which may be related to the recent surgery or mild synovitis. MR/MR cervical spin wo con* [id number] IMPRESSION: 1. Revision of the cervical fusion hardware since the prior study of 11/19/2023. There is now fusion hardware extending across the C4-5 disc level. 2. No high-grade central stenosis. 3. There is mild soft tissue edema greatest on the RIGHT at C4-5 and C5-6 face t joint level. May be related to synovitis. There is no fluid collection identi fied. 4. Moderate foraminal stenosis at C5-6 and mild at C6-7 due to uncovertebral o steophytes. 5. Small amount of edema in the RIGHT lateral superior articular facet of C5.
== END 2024-11-25 10:33 | disposition home or self-care (01) ==
LOC: RAD 10:33
PROVIDERS: PCP Family Medicine; Visit Provider Orthopaedic Surgery
DX: Z98.1 Arthrodesis status (principal); R51.9 Headache, unspecified
CPT/HCPCS: 72141

== ENCOUNTER → 2024-12-02 14:03 | Outpatient (BNVA) | payer OTHER, MEDICAID, SELFPAY | PROVIDERS: PCP Family Medicine; Visit Provider Orthopaedic Surgery | DX: M99.61 Osseous and subluxation stenosis of intervertebral foramina of cervical region (principal); Z47.89 Encounter for other orthopedic aftercare | CPT/HCPCS: 99213 ==

== ENCOUNTER → 2024-12-10 09:00 | Outpatient (BNVA) | payer OTHER, MEDICAID, SELFPAY | PROVIDERS: PCP Family Medicine; Visit Provider Family Medicine | DX: Z91.89 Other specified personal risk factors, not elsewhere classified (principal); W57.XXXA Bitten or stung by nonvenomous insect and other nonvenomous arthropods, initial encounter | CPT/HCPCS: 86003; 86008; 86618; 86666; 86757 ==

== ENCOUNTER → 2024-12-20 10:03 | Outpatient (BNVA) | payer OTHER, MEDICAID, SELFPAY | PROVIDERS: PCP Family Medicine; Referring Provider Orthopaedic Surgery; Visit Provider Anesthesiology Pain Medicine | DX: M48.02 Spinal stenosis, cervical region (principal); M47.22 Other spondylosis with radiculopathy, cervical region | CPT/HCPCS: 99214 ==

== ENCOUNTER → 2025-01-17 09:55 | Outpatient (BNVA) | payer OTHER, MEDICAID, SELFPAY | PROVIDERS: PCP Family Medicine; Visit Provider Anesthesiology Pain Medicine | DX: M48.02 Spinal stenosis, cervical region (principal); M47.22 Other spondylosis with radiculopathy, cervical region | CPT/HCPCS: 99214 ==

== ENCOUNTER → 2025-02-01 13:51 | Outpatient (BNVA) | payer OTHER, MEDICAID, SELFPAY | PROVIDERS: PCP Family Medicine; Visit Provider Orthopaedic Surgery | DX: M48.02 Spinal stenosis, cervical region (principal); Z98.1 Arthrodesis status | CPT/HCPCS: 36415; 80053; 81001; 85025; 99214 ==

== ENCOUNTER 2025-02-21 16:18 | Inpatient (IN) | payer MEDICARE, MEDICAID, SELFPAY ==
[2025-02-21] VITALS (33 sets, daily range): BP systolic 100–162; BP diastolic 58–98; PULSE 54–87; RESP 11–23; TEMP 36.2–37.1; O2SAT 95–100; BMI 26.4; BMI 28.5
--- NOTE | 2025-02-21 09:45 | W.PM.OPSUD ---
Surgery/Procedure H&P Update DATE OF PROCEDURE: February 21, 2025 DATE H&P PERFORMED: 02/01/25 H&P UPDATE INFORMATION: I have reviewed H&P completed within last 30 days, I have examined patient prior to procedure and No changes to prior documentation PREOP DIAGNOSIS: Cervical stenosis with radiculopathy PLANNED PROCEDURE: Operation Date: 02/21/25 10:30 Proposed Procedures p Cervical Posterior Fusion(Not Applicable) - Alexi Rodriguez DO s Cervical Decompression Cervical Spine Decompression(Not Applicable) - Alexi Rodriguez DO
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
[2025-02-21] MEDS: ceFAZolin 2,000 mg SDV 2000 MG IVP ×2 (10:30→17:20)
[2025-02-21] MEDS: lidocaine-epi 1% 20 mL INJ INJECTION (11:36)
[2025-02-21] MEDS: tobramycin 40 mg/mL SDV 2mL 160 MG XX (11:37)
[2025-02-21] MEDS: tranexamic acid 1,000 mg/10mL SDV 1000 MG XX (12:56)
--- NOTE | 2025-02-21 14:06 | P.OP_ITS ---
Operative Report Date of procedure: February 21, 2025 Pre-op diagnosis: Cervical stenosis with radiculopathy and myelopathy Nonunion cervical spine Post-op diagnosis: same Procedure done: Right posterior cervical Surgeon: Alexi Rodriguez DO Estimated blood loss (mL): 200 Urine output: 1. C3-T2 posterior cervical fusion 2. C3-T2 instrumentation 3. C5/6 laminectomy with partial facetectomies 4. C6/7 laminectomy with partial facetectomies 5. C7/T1 laminectomy with partial facetectomies 6. use of computer navigation/Serotactic for spine 7. use of autograft from same incision 8. Use of allograft Patient brought to the operative suite after undergoing anesthesia was placed in the prone position. Neuro monitoring was attached to the patient is throughout the entire case. Patient was placed so that was no areas impingement. Patient was then prepped and draped normal sterile fashion. Skin incision is made from C3 down to T2. Cervical fascia was identified. Retractors were placed. Dissection was made down to C3, C4, C5, C6, C7, and out to the transverse processes of T1 and T2. This was done bilaterally. Next attention was brought to placing a spinous process clamp on to T3. This was done in order to facilitate using the computer navigation. The C-arm was brought in and spun around patient and the information from the C-arm was loaded in the computer to facilitate placing screws using computer navigation. Next attention was brought to placing screws. Attention was first brought to doing the pedicle screws at T1-T2. This was done by using high-speed bur. Followed by using the navigated drill followed by pedicle feeler followed by placement of the screws. 24 mm screws were used at each level. This process was done at T1 and T2 bilaterally. Once pedicle screws are completed navigation was then used on the C2 screws. Lateral mass screws were then placed at C3-C4-C5 and C6 bilaterally. C7 was skipped. The body mass screws were done by using high-speed bur followed by a drill set at 12 mm. Followed by pedicle feeler followed by placement of the scr ew. 14 mm screws were placed into these levels bilaterally. Next attention was brought to performing the laminectomies and partial facetectomies. Attention was brought to the C7-T1 level first. The ligamentum flavum was taken down between the interlaminar space. Was seen and lumbar space was opened up was used to help undermine and get the ligamentum flavum taken down from lateral mass lateral mass. High-speed bur was then used to take down the medial aspect of the facet joint as well as the lamina. Then the #2 Kerrison was used to finish off the gutter that was performed and also take down the medial aspect of the facet joint of C7 and T1. This was done bilaterally. The lamina was then elevated up and the facet joints were cleaned up with a Kerrison rongeur and curved curette was used to ensure that the nerve roots were freed up. Next attention was brought to the C6-7 level.The ligamentum flavum was taken down between the interlaminar space. Was seen and lumbar space was opened up was used to help undermine and get the ligamentum flavum taken down from lateral mass lateral mass. High-speed bur was then used to take down the medial aspect of the facet joint as well as the lamina. Then the #2 Kerrison was used to finish off the gutter that was performed and also take down the medial aspect of the facet joint of C6 and C7. This was done bilaterally. The lamina was then elevated up and the facet joints were cleaned up with a Kerrison rongeur and curved curette was used to ensure that the nerve roots were freed up. Was brought to the C5-6 level.The ligamentum flavum was taken down between the interlaminar space. Was seen and lumbar space was opened up was used to help undermine and get the ligamentum flavum taken down from lateral mass lateral mass. High-speed bur was then used to take down the medial aspect of the facet joint as well as the lamina. Then the #2 Kerrison was used to finish off the gutter that was performed and also take down the medial aspect of the facet joint of C5 and C6. This was done bilaterally. The lamina was then elevated up and the facet joints were cleaned up with a Kerrison rongeur and curved curette was used to ensure that the nerve roots were freed up. While the decompression was done at the C5-6 level there was noticed that the amplitude decreased bilaterally. Returned to baseline by the end of the case except for on the right side there was some decreased amplitude still but it was present. Once decompression was done at each level. Attention was then brought to decorticating the lateral masses from C2-C7. As well as the lamina and transverse processes of T1 and T2. This was done bilaterally. Then the autograft from the lamina of the shoulder was packed into the lateral gutters along with ostial amp bone graft. Vancomycin powder and deep drain was placed in the wound. Wound was then closed in layered fashion with 0 Vicryl 2-0 Vicryl and Monocryl suture. Sterile dressings were applied patient was transferred to the PACU in stable condition. Procedure: My posterior cervical procedure
--- NOTE | 2025-02-21 14:43 | ANE.PACU2 ---
Inpatient post-anesthesia follow up: Airway intact: Yes Vital signs: Temperature 98.8 F Pulse Rate 63 Respiratory Rate 14 Blood Pressure 116/71 Pulse Oximetry 97 Oxygen Delivery Me thod Room Air Oxygen Flow Rate 8 Fraction of Inspir ed Oxygen Hydration adequate: Yes Nausea and vomiting: No Pain level: 1 Mental status: Baseline
[2025-02-21] MEDS: ondansetron 2 mg/ML SDV 2 mL 4 MG IVP ×3 (14:55→23:25)
--- NOTE | 2025-02-21 16:09 | XR_ITS ---
WS: [id number] XR cervical spine 3V* [id number] REASON FOR EXAM: OR PIC FINDINGS: Pre-existing anterior cervical fusion C4-C7. Posterior decompression with pedicle screws and interconnecting rods C3-T2. Surgical appliances are intact and in proper position and alignment. XR/XR cervical spine 3V* [id number] IMPRESSION: Posterior cervical fusion without abnormality.
--- NOTE | 2025-02-21 16:26 | PC.NURSE ---
at approx 1605 pt arrived in room. pacu nurse and ms nurse at bedside, did bedside assessment of pts ability to move her right side. pt was unable to move right leg at all, pt stated she could feel the nurse touching her right leg but, unable to move it. pts right arm, she is able to move at the should and elbow, has difficulty but, is able to move it, unable to squeeze nurses hand, attempts but unable to squeeze
--- NOTE | 2025-02-21 16:28 | SUR.PHASEI ---
Pt A&Ox4 stated her name, , situation and location. Pt was able to move right arm/hand however unable to squeeze with right hand and unable to move right leg/foot. Rossana neuro-tech assessed pt extremities in PACU. Hoa LINK notified Dr. Rodriguez who then assessed pt extremities in PACU recovery and authorized pt transfer to [facility]. Received go ahead from Dr. Toussaint to transfer to [facility], vitals are stable as documented. Report given to HONG [facility] BELLE2 of right side extremity concerns. Upon pt arrival to [facility], Klelie was present at bedside and conducted an extremity activity assessment, results were same as this nurse assessment in PACU. This nurse then escorted pt's sister and two others to pt's room.
[2025-02-21] MEDS: methylPREDNISolone sod succ 125 mg/2 mL INJ 60 MG IVP ×2 (17:21→20:48)
[2025-02-21] MEDS: morphine 4 mg/mL SDV 1 mL 2 MG IVP ×2 (19:28→23:08)
--- NOTE | 2025-02-21 19:39 | PC.NURSE ---
Pt complaining of severe pain in her head. This nurse offered hydrocodone, morphine, torodol, or tylenol per MAY to pt. Pt voiced she wants the morphine. Vitals checked and morphine given per MAY. Pt still unable to move R leg and still cannot squeeze with R hand. Pt does not complain of pain in either extremity but states she can feel when I touch them.
--- NOTE | 2025-02-21 21:18 | PC.NURSE ---
Pt refused all of her pills tonight scheduled per MAY, also refused them on dayshift, states she feels like she will throw them up if she takes them, refused atorvastatin, baclofen, cetirizine, flonase, propranolol, ropinirole, was given zofran at 1720, can have it again at 2320. Dr. Crenshaw notified and physician notification put in.
--- OUTSIDE RECORDS SUMMARY | 2025-02-21 21:27 | XMS_ITS | Encounter Summary ---
Author Organization Feedback [facility] Address [address] [place] [address] Care Team Providers Care Solution Sales Senior Executive Name Role Phone Jaclyn Feliciano MD Primary Care Provider [phone]- [phone] Encounter Details Date Type Department Care Team (Late st Contact Info) Description 04/20/2012 Ancillary Orders [facility] Gracious Eloise [place] [address] [place] [address] [facility] Anton [address] [place] [address] Contusion Social History Tobacco Use Types Packs/Day Years Used Date Smoking Tobacco: Never Assessed Comments Unknown Sex and Gender Information Value Date Recorded Sex Assigned at Not on file Legal Sex Female 1:27 PM ARC WELDER Gender Identity Not on file Sexual Orientation Not on file documented as of this encounter Plan of Treatment Not on file documented as of this encounter Results * XR TIBIA AND FIBULA 2 VW LEFT (04/20/2012 1:41 PM ARC WELDER) Anatomical Region Laterality Modality Lower Extremity Computed Radiogr aphy 04/20/2012 1:33 PM ARC WELDER Narrative 04/21/2012 8:45 AM ARC WELDER PROCEDURE XR LEFT LOWER LEG, two views 20 April 2012 DESCRIPTION AP and lateral views of the left tibia and fibula fail to reveal evidence of fracture or deformity. There appears to be an incompletely fused ossicle of the tip of the fibula. No soft tissue gas or calcification is seen and no periosteal reaction is seen. IMPRESSION no acute bony changes seen Procedure Note Bert Gordillo MD - 04/21/2012 PROCEDURE XR LEFT LOWER LEG, two views 20 April 2012 DESCRIPTION AP and lateral views of the left tibia and fibula fail to reveal evidence of fracture or deformity. There appears to be an incompletely fused ossicle of the tip of the fibula. No soft tissue gas or calcification is seen and no periosteal reaction is seen. IMPRESSION no acute bony changes seen us Osorio Patiño Sr., CASINO ENFORCEMENT AGENT DIAGNOSTIC IMAGIN G ORDERABLES Final Result documented in this encounter Visit Diagnoses Diagnosis Contusion Contusion of unspecified site Contusion Contusion of unspecified site documented in this encounter Care Teams Solution Sales Senior Executive Relationship Specialty Start Date End Date Jaclyn Feliciano MD [address] [place] [id number] PCP - General Family Practice 08/31/14 documented as of this encounter
--- OUTSIDE RECORDS SUMMARY | 2025-02-21 21:27 | XMS_ITS | Clinical Summary ---
Author Organization [facility] Address [address] [place]: Epic Prelude ADT J[place]OD BARRETT [address] Care Team Providers Care Kitchen Steward Name Role Phone Unavailable Primary Care Provider Unavailabl e Allergies Active Allergy Reactions Criticality Noted Date Comments Amitriptyline Other (See Comments) 12/28/2022 Feels like ants crawling all over me Tetanus And Diphther. Tox (Pf) Anaphylaxis High 01/22/2018 Tetanus And Diphtheria Toxoids, Adsorbed, Adult Other (See Comments) 01/24/2014 Lock jaw Unclassified Drug Anaphylaxis High 01/17/2015 Medications aspirin (ECOTRIN EC) 325 mg Tablet, Delayed Release (E.C.) Take 325 mg by mouth daily. 8 Active simvastatin (ZOCOR) 20 mg tablet Take 20 mg by mouth daily. 8 Active HYDROcodone-acet aminophen (NORCO) 7.5-325 mg Tablet Take 1 Tablet by mouth every 8 hours as needed for Pain, Moderate. 8 Active fluticasone propionate (FLONASE) 50 mcg/spray [place], Suspension nasal inhaler Administer 2 Sprays in each nostril daily. 8 Active pregabalin (LYRICA) 75 mg Capsule Take 75 mg by mouth every 8 hours. 9 Active rOPINIRole (REQUIP) 0.5 mg tablet Take 0.5 mg by mouth late in the day. 8 Active multivitamin (DAILY-ASHLEY) tablet Take 1 Tablet by mouth daily. 8 Active esomeprazole (NexIUM) 40 mg Capsule, Delayed Release(E.C.) Take 40 mg by mouth daily before breakfast. 8 Active nitroglycerin (NITROSTAT) 0.4 mg Tablet, Sublingual Place 0.4 mg under tongue every 5 minutes as needed for Chest Pain. 8 Active tiZANidine (ZANAFLEX) 4 mg Tablet Take 4 mg by mouth 2 times daily. 8 Active Additional Information Patient taking differently:4 mg OralDAILY LATE, Reported on 11/21/2023 ISOSORBIDE MONONITRATE ORAL Take 60 mg by mouth daily. 8 Active metoprolol tartrate (LOPRESSOR) 25 mg tablet Take 12.5 mg by mouth daily. 9 Active montelukast (SINGULAIR) 10 mg tablet Take 10 mg by mouth daily. 8 Active omeprazole (PriLOSEC) 40 mg Capsule, Delayed Release(E.C.) Take 40 mg by mouth. 8 Active raNITIdine (ZANTAC) 150 mg tablet Take 150 mg by mouth. 8 Active Additional Information Patient taking differently:150 mg OralDAILY, Reported on 11/21/2023 epinephrine (EPIPEN 2-AYLA INJECTION) by Injection route. 6 Active propranolol HCl (PROPRANOLOL ORAL) Take 20 mg by mouth. 2 tabs in am, 1 tab at noon and 2 tabs in PM Active OMEGA-3 FATTY ACIDS-FISH OIL ORAL Take by mouth. Activ e Active Problems Problem Noted Date Diagnosed Date Sprain of shoulder, right 11/21/2023 Social History Tobacco Use Types Packs/Day Years Used Date Smoking Tobacco: Every Day Cigarettes 1 Last attempted to quit: 12/16/1995 Smokeless Tobacco: Never Tobacco Cessation:Ready to Q uit: Not Asked; Counseling Given: Not Answered Alcohol Use Standard Drinks/Week Comments Yes 0 (1 standard drink = 0.6 oz pur e alcohol) occasional Feeling Safe Answer Date Recorded Are you in a relationship wi th someone who hurts you emotionally and/or physically? 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 Gender Identity Female 11/21/2023 3:56 PM CDT Sexual Orientation Straight 11/21/2023 3: 56 PM CDT Last Filed Vital Signs Vital Sign Reading Time Taken Comments Blood Pressure 108/75 11/21/2023 11:00 AM CDT Pulse 55 11/21/2023 11:00 AM CDT Temperature 36.9 C (98.4 F) 11/21/2023 11:00 AM CDT Respiratory Rate 20 11/21/2023 11:00 AM CDT Oxygen Saturation 99% 11/21/2023 11:00 AM CDT Inhaled Oxygen Concentration - - Weight 67.6 kg (149 lb) 11/21/2023 10:07 AM CDT Height 162.6 cm (5' 4 ) 11/21/2023 10:07 AM CDT Body Mass Index 25.58 11/21/2023 10:07 AM CDT Plan of Treatment Health Maintenance Due Date Last Done Comments DTAP/TDAP/TD VACCINES (1 - Tdap) 06/05/1986 HEPATITIS B VACCINES (1 of 3 - 19+ 3-dose series) 06/05/1986 HPV/Cotest (21-29) 06/05/1988 CERVICAL CANCER SCREENING 06/05/1997 HPV/Cotest (30-65) 06/05/1997 PAP SMEAR 06/05/1997 BREAST CANCER SCREENING 2007 COLORECTAL SCREENING 06/05/2012 Colorectal Cancer Screening 06/05/2012 FIT-DNA Q 3 years 06/05/2012 FIT/FOBT Q 1 year 06/05/2012 Flex Sig/CT Colonography Q 5 years 06/05/2012 ZOSTER VACCINE (1 of 2) 06/05/2017 INFLUENZA VACCINE (#1) 2024 3, 12/27/2021, 01/30/2021 Insurance MEDICAID [facility] [id number]
--- OUTSIDE RECORDS SUMMARY | 2025-02-21 21:27 | XMS_ITS | Clinical Summary ---
Author Organization [facility] Address [address] [place] [address] Phone Care Team Providers Care Labview Programmer Name Role Phone Jaclyn Feliciano MD Primary Care Provider +1- [phone] Allergies Active Allergy Reactions Criticality Noted Date Comments Tetanus And Diphther. Tox (Pf) Anaphylaxis High 10/2017 Tetanus And Diphtheria Toxoids, Adsorbed, Adult Other (See Comments) 01/24/2014 Lock jaw Unclassified Drug Anaphylaxis High 01/17/2015 Medications flaxseed oil (OMEGA 3 ORAL) Take 1 Tablet by mouth 2 times daily. Active aspirin (ECOTRIN EC) 325 mg Tablet, Delayed Release (E.C.) Take 325 mg by mouth daily. Active ISOSORBIDE MONONITRATE ORAL Take 60 mg by mouth daily. Active tiZANidine (ZANAFLEX) 4 mg Tablet Take 4 mg by mouth 2 times daily. Active gabapentin (NEURONTIN) 300 mg Oral capsule Take 300 mg by mouth 2 times daily. Active levothyroxine 50 mcg Oral tablet Take 50 mcg by mouth daily. Active HYDROcodone-acet aminophen (NORCO) 7.5-325 mg Tablet Take 1 Tab by mouth every 8 hours as needed for Pain, Moderate. Active amitriptyline (ELAVIL) 10 mg tablet Take 10 mg by mouth daily at bedtime. Active EPINEPHRINE (EPIPEN 2-AYLA INJECTION) by Injection route. Active omeprazole (PriLOSEC) 40 mg Capsule, Delayed Release(E.C.) Take 40 mg by mouth. Active raNITIdine (ZANTAC) 150 mg tablet Take 150 mg by mouth. Active simvastatin (ZOCOR) 20 mg tablet Take 20 mg by mouth daily. Active montelukast (SINGULAIR) 10 mg tablet Take 10 mg by mouth daily. Active Lactobacillus Acidophilus (ACIDOPHILUS) Capsule Take 1 Caplet by mouth daily. Active raNITIdine (ZANTAC) 150 mg tablet Take 150 mg by mouth 2 times daily. Active rOPINIRole (REQUIP) 0.5 mg tablet Take 0.5 mg by mouth late in the day. Active esomeprazole (NexIUM) 40 mg Capsule, Delayed Release(E.C.) Take 40 mg by mouth daily before breakfast. Active fluticasone (FLONASE) 50 mcg/spray [place], Suspension Administer 2 Sprays in each nostril daily. Active multivitamin (DAILY-ASHLEY) tablet Take 1 Tablet by mouth daily. Active nitroglycerin (NITROSTAT) 0.4 mg Tablet, Sublingual Place 0.4 mg under tongue every 5 minutes as needed for Chest Pain. Active HYDROcodone-acet aminophen (NORCO) 7.5-325 mg Tablet Take 1 Tablet by mouth every 8 hours as needed for Pain, Moderate. Active pregabalin (LYRICA) 75 mg Capsule Take 75 mg by mouth every 8 hours. Active risperiDONE (RisperDAL) 0.5 mg tablet Take 0.5 mg by mouth late in the day. Active metoprolol tartrate (LOPRESSOR) 25 mg tablet Take 12.5 mg by mouth daily. Active Active Problems No known active problems Social History Tobacco Use Types Packs/Day Years Used Date Smoking Tobacco: Former Cigarettes 0 Q uit: 12/16/1995 Smokeless Tobacco: Never Alcohol Use Standard Drinks/Week Comments Not Currently 0 (1 standard drink = 0.6 oz pur e alcohol) Comments No Sex and Gender Information Value Date Recorded Sex Assigned at Not on file Legal Sex Female 1:27 PM SHIP JOINER Gender Identity Not on file Sexual Orientation Not on file Last Filed Vital Signs Vital Sign Reading Time Taken Comments Blood Pressure 141/89 02/22/2019 7:13 PM SHIP JOINER Pulse 67 10/19/2012 9:06 PM CDT Temperature 36.7 C (98 F) 02/22/2019 7:13 PM SHIP JOINER Respiratory Rate 20 02/22/2019 7:13 PM SHIP JOINER Oxygen Saturation 98% 02/22/2019 7:13 PM SHIP JOINER Inhaled Oxygen Concentration - - Weight 89.6 kg (197 lb 9.6 oz) 02/22/2019 5:45 P M SHIP JOINER Height 167.6 cm (5' 6 ) 02/22/2019 5:45 PM SHIP JOINER Body Mass Index 31.89 02/22/2019 5:45 PM SHIP JOINER Plan of Treatment Health Maintenance Due Date Last Done Comments DTAP/TDAP/TD VACCINES (1 - Tdap) 06/05/1986 HEPATITIS B VACCINES (1 of 3 - 19+ 3-dose series) 05/16 HPV/Cotest (21-29) 06/05/1988 CERVICAL CANCER SCREENING 06/05/1997 HPV/Cotest (30-65) 06/05/1997 PAP SMEAR 06/05/1997 BREAST CANCER SCREENING 2007 COLORECTAL SCREENING 06/05/2012 Colorectal Cancer Screening 06/05/2012 FIT-DNA Q 3 years 06/05/2012 FIT/FOBT Q 1 year 06/05/2012 Flex Sig/CT Colonography Q 5 years 06/05/2012 ZOSTER VACCINE (1 of 2) 06/05/2017 INFLUENZA VACCINE (#1) 2024 [place] [place] [address] DUAL COMPLETE MCR PPO D-SNP MEDICAID [facility] DUAL COMPLETE [place] [address] Care Teams Labview Programmer Relationship Specialty Start Date End Date Jaclyn Feliciano MD [address] [place] [address] PCP - General Family Practice 08/31/14
[2025-02-22] VITALS (10 sets, daily range): BP systolic 101–144; BP diastolic 61–90; PULSE 52–91; RESP 16–18; TEMP 36.5–36.9; O2SAT 93–100
[2025-02-22] MEDS: ceFAZolin 2,000 mg SDV 2000 MG IVP ×2 (00:17→08:52)
[2025-02-22] MEDS: morphine 4 mg/mL SDV 1 mL 2 MG IVP (03:33)
[2025-02-22] MEDS: methylPREDNISolone sod succ 125 mg/2 mL INJ 60 MG IVP ×2 (03:35→08:52)
[2025-02-22] MEDS: HYDROcodone-acetaminophen 10-325 mg Tablet PO ×4 (04:46→20:21)
--- NOTE | 2025-02-22 05:00 | PC.NURSE ---
Ponce catheter removed per provider orders. Pt still unable to move R leg and unable to squeeze with R hand. I educated patient on if the catheter comes out, she will have to get up and transfer to a bedside commode or toilet. Pt verbalized understanding and said she wants it out this morning. Approximately 100 mL of pale yellow urine noted in drainage bag prior to removal. Catheter balloon fully deflated and catheter removed with no complications. Catheter fully intact and pt showed no signs of discomfort and tolerated procedure well. Education provided on expected urge to void, importance of notifying staff of first void, and monitoring for urinary retention.
--- NOTE | 2025-02-22 07:53 | PM.PN ---
Subjective Subjective: Patient's pain is controlled. However she is still has weakness in her right arm unable to extend or move her hand. She is able to move her feet now. Unable to flex up her hips. Vitals/I&O/Wt Last Vital Signs Temp 97.9 F 02/22/25 07:43 Pulse 69 02/22/25 07:43 Resp 17 02/22/25 07:43 BP 129/67 02/22/25 07:43 Pulse Ox 99 02/22/25 07:43 O2 Del Method Room Air 02/22/25 07:43 O2 Flow Rate 8 02/21/25 14:25 02/21/25 02/22/25 02/22/25 22:59 06:59 14:59 Intake Total 954 / 2754 Output Total 925 / 1775 310 / 2085 Balance - 644 / 669 Weight last 48 hrs Weight 161 lb 6 oz Weight 166 lb 11.2 oz Weight 154 lb Physical Exam Narrative: Patient has sensation in the palm of her hand but on the dorsal aspect of her hand. She is unable to extend out. She is moving her right foot whereas yesterday she was not doing that. Legs shake when she tries to extend her hips. Urinary Catheter Management: Ponce: Cath Placed During This Visit: yes, but has since been removed by the nurse Reason for Continuing Indwelling Catheter: Required Immobilization for Trauma or Surgery or Anesthesia Urinary Catheter Date of Insertion: 02/21/25 Urinary Catheter Time of Insertion: 10:35 Date Urinary Catheter Removed: 02/22/25 Time Urinary Catheter Discontinued: 05:00 A&P Assessment and plan 1. Status post cervical spinal fusion: Postop day 1 posterior spine fusion. Will work with therapy. Will consult social media community manager for possible rehab at [facility]. PDMP PDMP Reviewed: Not Reviewed Attestations Medical Necessity Statement*: Pain control Coding Level of Care Code Acute Code for Chg Fwd Diagnoses Status post cervical spinal fusion Z98.1
--- NOTE | 2025-02-22 09:28 | PC.NURSE ---
this nurse did am assessment, pt able to move hand, still unable to squeeze this nurses hand. pt able to move toes on right foot,this is a positive change. she is still unable to lift right foot or move the rest of her leg.
--- NOTE | 2025-02-22 10:42 | PC.CHAP ---
Pastoral Care Encounter/Spiritual Assessment Type of Contact [] Declined health occupations teacher visit [] Patient/Family/Request visit [] Outpatient visit [] Follow-up visit [] Physician referral [] Code/Alert [x] Routine visit [] Staff referral [] Actively dying [] Patient sleeping [] Family support [] [] Out of room [] Palliative care [] [] Receiving care in room [] Pre-surgical visit [] Trauma [] Long length of stay [] ICU visit [] Other: Relational/Emotional Strength [x] Patient feels connected with others/family/visitors/staff [] Distress [] Loneliness/isolation [] Abandonment Spirituality of Patient [x] Person of Carole [] Attends Episcopal of their Carole [x] Believes in Prayer [] Reads Bible or Holiness materials [] There are Spiritual issues to be addressed Community Service Worker Interventions [x] Prayer [x] Active listening [] Non-anxious presence [x] Spiritual/emotional support [] Crisis/trauma care [] Spiritual counseling [] Bereavement support [] Provided bereavement packet [] Provided Bible/devotional materials [] Provided toy/stuffed animal, coloring book to patient or family member [] Provided Communion [] Anointing/[place] [] Salvation [x] Completed spiritual assessment [] Other: Impact on Illness or Injury [] Angry [] Fearful [] Anxious [] Often cries [] Exhaustion [] Unable to work [] Unable to attend shinto [] Unable to walk/stand [] Unable to read [] Unable to drive [] Unable to eat/drink [] Unable to sleep [] Unable to be with family [] Patient intubated [] Other: Summary Time spent with patient 5 min
--- NOTE | 2025-02-22 10:59 | MR_ITS ---
WS: [id number] MRI HEAD WITHOUT CONTRAST TECHNIQUE: Sagittal T1, T2 axial, T2 axial FLAIR, axial and coronal T1 images, axial susceptibility weighted imaging, axial diffusion weighted images, and coronal T2 images were obtained. CLINICAL INFORMATION: left side weakness COMPARISON: 2013 FINDINGS: Some images degraded by motion. Fast imaging performed. No evidence of restricted diffusion to suggest acute ischemia. Normal optic chiasm and pituitary infundibulum. Temporal lobes and hippocampal formations are normal in appearance. Minimal small vessel changes. Increased FLAIR signal in the parietal, occipital, and temporal sulci suspicious for small amount of subarachnoid hemorrhage. This can be seen with incomplete CSF nulling and can be due to artifact. This is not apparent on the other sequences Normal posterior fossa. Normal vascular flow voids at the skull base. No extra- axial fluid collections. Paranasal sinuses and mastoid air cells are well aerated. Normal posterior nasopharynx. No hemosiderin on the gradient imaging. Small amount of increased signal in the upper cervical cord. Cervical cord will be discussed on the cervical spine MRI MR/MR head wo con* [id number] IMPRESSION: 1. No evidence of restricted diffusion to suggest acute ischemia. 2. Increased FLAIR signal in the posterior parietal, occipital and superior te mporal lobes can be seen with a small amount of subarachnoid hemorrhage versus incomplete CSF nulling artifact. This is not visible on other sequences. 3. No hemosiderin on the gradient images. 4. No extra-axial fluid collections. Message LEFT for Alexi Rodriguez DO at 02/22/2025 4:20 PM with the boxer operator
--- NOTE | 2025-02-22 11:00 | MR_ITS ---
WS: [id number] MRI CERVICAL SPINE NONCONTRAST TECHNIQUE: Sagittal T1, T2 and STIR imaging. Axial T2, gradient, and fiesta imaging. CLINICAL INFORMATION: left side weakness COMPARISON: MRI 11/25/2024 FINDINGS: Straightening of the normal cervical lordosis. Postoperative changes ACDF C4-C6 with posterior decompression. Dorsal fixation screws at C3-T1. Posterior decompression C5-6. No high-grade central canal stenosis. Expected postoperative edema within the laminectomy defects. No drainable fluid collections. Suggestion of a tiny trace of epidural blood products at C4-5 ventrally. Mild cord edema in the central cord at C4-5 with mild cord expansion. No hemosiderin. C2-C3: Normal. C3-C4: Spinal canal and foramen appear patent. Mild facet arthropathy. C4-C5: Postoperative changes. Spinal canal and foramina appear patent. C5-C6: Postoperative changes. Spinal canal appears patent with decompression. Mild LEFT greater than RIGHT foraminal narrowing. C6-C7: Grade 1 anterolisthesis C6 on C7. Mild bilateral foraminal narrowing. Spinal canal is patent. C7-T1: Normal. Visualized brain stem structures: Normal. Prevertebral soft tissues: Normal. MR/MR cervical spin wo con* [id number] IMPRESSION: 1. Recent postoperative changes ACDF C4-C6. Posterior decompression with dorsa l fixation screws extending from C3-T1. 2. Mild cord edema with slight cord expansion at C4-5 suspicious for small rosy unt of contusion. No hemosiderin. 3. No significant central canal stenosis. Suggestion of a tiny trace of epidur al blood products at C4-5. 4. No other acute findings. Discussed with Alexi Rodriguez DO at 02/22/2025 445 PM.
[2025-02-22] MEDS: ATORVASTATIN 20 MG TABLET PO (20:21)
[2025-02-23] MEDS: HYDROcodone-acetaminophen 10-325 mg Tablet PO ×4 (00:41→17:40)
[2025-02-23 04:00] VITALS: BP 121/70; PULSE 60; RESP 17; TEMP 36.8; O2SAT 95
[2025-02-23 07:30] VITALS: BP 118/69; PULSE 56; RESP 18; TEMP 36.4; O2SAT 93
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
--- NOTE | 2025-02-23 09:38 | PC.SOCIAL ---
IMM Update pg 2 of IMM Updated and reviewed w/ patient. Copy provided and copy dated, initialed and placed in chart.
[2025-02-23 11:20] VITALS: BP 96/60; PULSE 58; RESP 18; TEMP 36.6; O2SAT 97
--- NOTE | 2025-02-23 12:58 | MR_ITS ---
WS: [id number] MRI THORACIC SPINE WITHOUT CONTRAST TECHNIQUE: Sagittal T1, T2 and STIR imaging. Axial T2 imaging. Noncontrast imaging obtained. CLINICAL INFORMATION: myelopathy COMPARISON: MRI 2014 FINDINGS: Mild thoracic curve. Moderate thoracic kyphosis. Recent postoperative changes cervical fusion with dorsal pedicle screws C3-T1. Posterior decompression at C5- 6. No high-grade central canal stenosis. A few scattered hemangiomas in the thoracic spine. Normal CSF pulsation artifact in the dorsal spinal canal. Thoracic cord signal is normal. Partially visualized signal abnormality in the cervical cord on the automotive service manager imaging described on the MRI from yesterday. Moderate spondylitic changes. Moderate facet arthropathy lower thoracic spine. MR/MR thoracic spin wo con* [id number] IMPRESSION: 1. Normal signal in the thoracic cord. 2. No evidence of thoracic blood products or epidural hematoma. 3. Mild thoracic curve with moderate thoracic kyphosis. 4. No other acute thoracic spine findings.
--- NOTE | 2025-02-23 12:59 | PM.PN ---
Subjective Subjective: Patient is up ambulating. Still has weakness in the right hand Vitals/I&O/Wt Last Vital Signs Temp 97.8 F 02/23/25 11:20 Pulse 58 L 02/23/25 11:20 Resp 18 02/23/25 11:20 BP 96/60 02/23/25 11:20 Pulse Ox 97 02/23/25 11:20 O2 Del Method Room Air 02/23/25 11:20 O2 Flow Rate 8 02/21/25 14:25 02/22/25 02/23/25 02/23/25 22:59 06:59 14:59 Intake Total 1480 / 2080 1840 / 1840 Output Total 900 / 1050 1000 / 1000 Balance 1480 / 1930 -900 / 1030 840 / 840 Weight last 48 hrs Weight 163 lb Weight 161 lb 6 oz Weight 166 lb 11.2 oz Physical Exam Narrative: Continued weakness in the right hand otherwise up mobilizing. Urinary Catheter Management: Ponce: Cath Placed During This Visit: yes, but has since been removed by the nurse Reason for Continuing Indwelling Catheter: Required Immobilization for Trauma or Surgery or Anesthesia Urinary Catheter Date of Insertion: 02/21/25 Urinary Catheter Time of Insertion: 10:35 Date Urinary Catheter Removed: 02/22/25 Time Urinary Catheter Discontinued: 05:00 A&P Assessment and plan 1. Status post cervical spinal fusion: Postop day #2 posterior cervical fusion with decompression. Up with physical therapy Appreciate Dr. Ann's note from neurology. Discharge planning to spinal cord rehab facility in [place]. MRI of thoracic spine ordered to evaluate any possible other causes for myelopathy. PDMP PDMP Reviewed: Not Reviewed Attestations Medical Necessity Statement*: Pain management Coding Level of Care Code Acute Code for Chg Fwd Diagnoses Status post cervical spinal fusion Z98.1
[2025-02-23 16:00] VITALS: BP 103/51; PULSE 53; RESP 18; TEMP 36.7; O2SAT 97
[2025-02-23 19:34] VITALS: BP 116/70; PULSE 57; RESP 17; TEMP 36.8; O2SAT 96
[2025-02-23] MEDS: ATORVASTATIN 20 MG TABLET PO (21:26)
[2025-02-23] MEDS: fluticasone nasal spray 16gm Btl 2 SPRAY INTRANASAL (21:35)
[2025-02-23 23:41] VITALS: BP 93/52; PULSE 50; RESP 16; TEMP 36.5; O2SAT 95
[2025-02-24 03:52] VITALS: BP 127/76; PULSE 52; RESP 16; TEMP 36.6; O2SAT 97
--- NOTE | 2025-02-24 05:55 | PC.NURSE ---
pt verbalized not feeling very good, compared current feeling as same when pt potassium is low. No labs drawn since admission, call placed to Dr. Rodriguez, no response, call placed to [facility] ortho Dr. Harmon, order received for CBC and CMP.
--- NOTE | 2025-02-24 06:01 | PC.NURSE ---
BS checked when pt began c/o not feeling well. BS 89, pt given apple juice per pt request
--- NOTE | 2025-02-24 06:15 | PC.NURSE ---
propanolol not given at this time until clarified with Dr. Rodriguez in regards to how order was written along with current BP and pt home dose
[2025-02-24 06:30] LABS: Hematocrit 31.6 % (36-47); Hemoglobin 10.10 g/dL (11.27-16.99); Mean Corpuscular HGB Conc 32.0 g/dL (30-55); Mean Corpuscular Hemoglobin 29.6 pg (27-33); Mean Corpuscular Volume 92.7 fl (85-98); Nucleated Red Blood Cells % 0 %; Platelet Count 155 10^3/cmm (157-399); Red Blood Count 3.41 10^6/uL (3.85-5.65); White Blood Count 9.33 10^3/uL (3.29-11.43)
[2025-02-24 06:52] LABS: Alanine Aminotransferase 30 U/L (0-33); Albumin Level 3.5 g/dL (3.5-5.2); Alkaline Phosphatase 66 U/L (35-105); Anion Gap 13.4 (5-19); Aspartate Amino Transferase 49 U/L (0-32); Blood Urea Nitrogen 11 mg/dL (6-20); Calcium 8.6 mg/dL (8.5-10.5); Carbon Dioxide 25 mmol/L (22-29); Chloride 109 mmol/L (98-107); Globulin 1.7 g/dL (1.3-4.6); Glucose 93 mg/dL (65-115); Osmolality Calculated 297 mOsm/kg (285-295); Potassium 3.4 mmol/L (3.5-5.1); Sodium 144 mmol/L (136-145); Total Protein 5.2 g/dL (6.6-8.7)
[2025-02-24] MEDS: HYDROcodone-acetaminophen 10-325 mg Tablet PO ×2 (07:22→11:49)
[2025-02-24 07:58] VITALS: BP 170/97; PULSE 54; RESP 16; TEMP 36.4; O2SAT 99
--- NOTE | 2025-02-24 09:39 | P.DS_ITS ---
Discharge Providers Date of Admission: 02/21/25 16:18 Date of Discharge: February 24, 2025 Attending Provider at Admission: Alexi Rodriguez DO Attending Provider at Discharge: Alexi Rodriguez DO Primary Care Provider: Nathaniel Simon MD Diagnoses at Discharge Discharge Diagnosis 1. Status post cervical spinal fusion: Reason for Visit Reason for Visit: M54.2 Physical Exam Narrative: Patient starting to get more motion in her fingers on the right hand. Continues to improve would like to go home Urinary Catheter Management: P[place]: Cath Placed During This Visit: yes, but has since been removed by the nurse Reason for Continuing Indwelling Catheter: Required Immobilization for Trauma or Surgery or Anesthesia Urinary Catheter Date of Insertion: 02/21/25 Urinary Catheter Time of Insertion: 10:35 Date Urinary Catheter Removed: 02/22/25 Time Urinary Catheter Discontinued: 05:00 Discharge Data Studies Completed and Pending Completed Studies During Hospitalization Category Date Time Status XR cervical spine 3V* [id number] Routine Exams 02/21/25 16:09 Completed MR cervical spin wo con* [id number] Routine MRI 02/22/25 11:00 Completed MR head wo con* [id number] Routine MRI 02/22/25 10:59 Completed MR thoracic spin wo con* [id number] Routine MRI 02/23/25 12:58 Completed Radiology Impressions Cervical Spine X-Ray 02/21/25 16:09 IMPRESSION: Posterior cervical fusion without abnormality. Head MRI 02/22/25 10:59 IMPRESSION: 1. No evidence of restricted diffusion to suggest acute ischemia. 2. Increased FLAIR signal in the posterior parietal, occipital and superior temporal lobes can be seen with a small amount of subarachnoid hemorrhage versus incomplete CSF nulling artifact. This is not visible on other sequences. 3. No hemosiderin on the gradient images. 4. No extra-axial fluid collections. 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 Recent postoperative changes ACDF C4-C6. Posterior decompression with dorsal fixation screws extending from C3-T1. 2. Mild cord edema with slight cord expansion at C4-5 suspicious for small amount of contusion. No hemosiderin. 3. No significant central canal stenosis. Suggestion of a tiny trace of epidu ral blood products at C4-5. 4. No other acute findings. Discussed with Alexi Rodriguez DO at 02/22/2025 445 PM. Thoracic Spine MRI 02/23/25 12:58 IMPRESSION: 1. Normal signal in the thoracic cord. 2. No evidence of thoracic blood products or epidural hematoma. 3. Mild thoracic curve with moderate thoracic kyphosis. 4. No other acute thoracic spine findings. Laboratory Results WBC 9.33 10^3/uL (3.29-11.43) 02/24/25 06:21 RBC 3.41 10^6/uL (3.85-5.65) L 02/24/25 06:21 Hgb 10.10 g/dL (11.27-16.99) L 02/24/25 06:21 Hct 31.6 % (36-47) L 02/24/25 06:21 MCV 92.7 fl (85-98) 02/24/25 06:21 MCH 29.6 pg (27-33) 02/24/25 06:21 MCHC 32.0 g/dL (30-55) 02/24/25 06:21 RDW 13.9 % (12.1-15.1) 02/24/25 06:21 Plt Count 155 10^3/cmm (157-399) L 02/24/25 06:21 MPV 11.0 fL (7.4-10.4) H 02/24/25 06:21 Neut % (Auto) 63.1 % 02/24/25 06:21 Lymph % (Auto) 28.8 % 02/24/25 06:21 Valencia % (Auto) 7.1 % 02/24/25 06:21 Eos % (Auto) 0.3 % 02/24/25 06:21 Baso % (Auto) 0.4 % 02/24/25 06:21 Neut # (Auto) 5.88 10^3/uL (1.8-7.7) 02/24/25 06:21 Lymph # (Auto) 2.7 10^3/uL (0.8-4.8) 02/24/25 06:21 Valencia # (Auto) 0.7 10^3/uL (0.2-0.9) 02/24/25 06:21 Eos # (Auto) 0.0 10^3/uL (0.0-0.8) 02/24/25 06:21 Baso # (Auto) 0.0 10^3/uL (0.0-0.1) 02/24/25 06:21 Nucleated RBC % (auto) 0 % 02/24/25 06:21 Nucleated RBCs # 0.0 /100WBC 02/24/25 06:21 Sodium 144 mmol/L (136-145) 02/24/25 06:21 Potassium 3.4 mmol/L (3.5-5.1) L 02/24/25 06:21 Chloride 109 mmol/L (98-107) H 02/24/25 06:21 Carbon Dioxide 25 mmol/L (22-29) 02/24/25 06:21 Anion Gap 13.4 (5-19) 02/24/25 06:21 BUN 11 mg/dL (6-20) 02/24/25 06:21 Creatinine 0.7 mg/dL (0.5-0.9) 02/24/25 06:21 GFR Calculation 86.2 mL/min (90-130) L 02/24/25 06:21 Glucose 93 mg/dL (65-115) 02/24/25 06:21 POC Glucose 89 mg/dL (70-110) 02/24/25 05:43 Calculated Osmolality 297 mOsm/kg (285-295) H 02/24/25 06:21 Calcium 8.6 mg/dL (8.5-10.5) 02/24/25 06:21 Total Bilirubin 0.5 mg/dL (0.15-1.2) 02/24/25 06:21 AST 49 U/L (0-32) H 02/24/25 06:21 ALT 30 U/L (0-33) 02/24/25 06:21 Alkaline Phosphatase 66 U/L (35-105) 02/24/25 06:21 Total Protein 5.2 g/dL (6.6-8.7) L 02/24/25 06:21 Albumin 3.5 g/dL (3.5-5.2) 02/24/25 06:21 Globulin 1.7 g/dL (1.3-4.6) 02/24/25 06:21 Blood Type O Positive 02/21/25 09:38 Rho(D) Type Rh positive 02/21/25 09:38 Antibody Screen Negative 02/21/25 09:38 Vitals Last Vital Signs Temp 97.6 F 02/24/25 07:58 Pulse 54 L 02/24/25 07:58 Resp 16 02/24/25 07:58 BP 170/97 02/24/25 07:58 Pulse Ox 99 02/24/25 07:58 O2 Del Method Room Air 02/24/25 03:52 O2 Flow Rate 8 02/21/25 14:25 Discharge Plan Discharge Patient Disposition: Home Condition: Stable Prescriptions: New hydrocodone-acetaminophen 10-325 mg tablet 1 tab PO Q4H PRN (Reason: pain) 7 Days Qty: 42 0RF Continued aspirin 325 mg tablet 325 mg PO DAILY multivitamin Tablet 1 tab PO DAILY (DME) 1/2 inch shoe insert left foot See Rx Instructions .Route .MEDSUPPLY Qty: 1 0RF Rx Instructions: As directed nitroglycerin [Nitrostat] 0.4 mg tablet, sublingual 0.4 mg SUBLINGUAL Q5M PRN (Reason: Chest Pain) Qty: 90 0RF gabapentin 300 mg capsule 300 mg PO BID Qty: 180 2RF Rx Instructions: Take one capsule twice per day epinephrine [EpiPen 2-Job] 0.3 mg/0.3 mL auto-injector 0.3 mg IM ONCE PRN (Reason: Allergy Symptoms) Qty: 2 3RF duloxetine 60 mg capsule,delayed release(DR/EC) 60 mg PO QAM Qty: 90 2RF Rx Instructions: Take one capsule every morning trazodone 50 mg tablet 50 mg PO BEDTIME PRN (Reason: insomnia) Qty: 90 2RF Rx Instructions: May take 25mg to 50mg at bedtime as needed for sleep. paliperidone 1.5 mg tablet extended release 24hr 1.5 mg PO QAM Qty: 90 2RF Rx Instructions: Take one tablet every morning diphenhydramine HCl [Benadryl Allergy] 25 mg tablet 25 mg PO DAILY PRN (Reason: Allergy Symptoms) omega 5-ogi-jfx-fish oil [Fish Oil] 60-90-500 mg capsule 1 cap PO DAILY cetirizine [Zyrtec] 10 mg tablet 10 mg PO BEDTIME Qty: 60 1RF simvastatin 20 mg tablet 20 mg PO BEDTIME Qty: 90 3RF ondansetron HCl 4 mg tablet 4 mg PO Q8H PRN (Reason: Nausea And Vomiting) Qty: 30 6RF isosorbide mononitrate 60 mg tablet extended release 24 hr 60 mg PO DAILY Qty: 90 3RF pantoprazole 40 mg tablet,delayed release (DR/EC) 40 mg PO BID Qty: 180 3RF fluticasone propionate [Flonase Allergy Relief] 50 mcg/actuation spray,suspension 2 spray intranasal BEDTIME Qty: 48 0RF Rx Instructions: administer into each nostril propranolol 20 mg tablet 20 mg PO TID Qty: 450 3RF Rx Instructions: Take 2 tablets by mouth every AM, 1 tablet at Noon and 2 tablets at bedtime. baclofen 10 mg tablet 10 mg PO TID Qty: 90 1RF ropinirole 0.5 mg tablet 0.5 mg PO BEDTIME Qty: 90 3RF meclizine 25 mg tablet 25 mg PO BID PRN (Reason: dizziness) Qty: 180 3RF amlodipine 2.5 mg tablet 2.5 mg PO DAILY Discontinued hydrocodone-acetaminophen 10-325 mg tablet 1 tab PO Q8H PRN (Reason: pain) 7 Days Qty: 21 0RF Referrals: Alexi Rodriguez DO [Physician, Orthopedics] - 03/03/25 8:30 am Nathaniel Simon MD [Primary Care Provider, Family Practice] - 03/15/25 9:30 am Discharge Diet: Advance as tolerated Discharge Activity: Limit activity as instructed Patient Instructions: Acute Wound Care (DC), Opioid Safety, Post Anesthesia Care, Patient Portal & Raciel Instructions Activity Restrictions/Additional Instructions: Thank you for choosing [facility] for your care! The following is a list of instructions, from your provider, to follow upon your discharge to ensure you have the optimal recovery from your recent injury or surgery. Anterior Cervical Discectomy and Fusion: What to Expect at Home Your Recovery Follow-up care is a davila part of your treatment and safety. Be sure to make and go to all appointments, and call your doctor if you are having problems. If you do not already have a follow-up appointment made, call office in the next 1-3 days to make follow up appointment for 1 weeks at [phone]. It is also a good idea to know your test results and keep a list of the medicines you take. You can expect your neck to feel stiff or sore after surgery. This should improve in the weeks after surgery. But it may take 4 to 6 months for you to get better completely. You may have trouble sitting or standing in one position for very long and may need pain medicine in the weeks after your surgery. It may take 4 to 6 weeks to get back to your usual activities, but it may depend on what kind of surgery you had. Your throat will feel sore and it may be difficult to swallow for the first 3 days after your surgery. As long as you can get liquids down without difficulty, this should slowly improve, otherwise call our office or seek medical attention if it becomes increasingly difficult to get anything down including liquids. Avoid hot liquids for first 3-5 days. Soothing foods/liquids such as jello, pudding, and luke warm soups are recommended until swallowing improves. Staying elevated will also help, it's advised you keep propped up at while sleeping to help reduce the swelling. You may use an ice pack directly on your incision or around it on the front of your neck, using a cloth to protect your skin; and a heating pad to the back of your neck as needed. Do not use over the counter anti-inflammatory medications (Ibuprofen, Motrin, Aleve, Advil, etc) Taking these meds after having a fusion can delay fusion rates, we recommend you avoid them for the first [address] your surgery[address] Rodriguez may advise you to work with a physical therapist to strengthen the muscles around your neck and back - this will be discussed at your follow - up appointments. The pain or numbness you were having in your arms before surgery should get better or go away completely. This care sheet gives you a general idea about how long it will take for you to recover. But each person recovers at a different pace. Follow the steps below to get better as quickly as possible. How can you care for yourself at home? Activity ? Rest when you feel tired. Getting enough sleep will help you recover. ? Try to walk each day. Start by walking a little more than you did the day before. Bit by bit, increase the amount you walk. Walking boosts blood flow and helps prevent pneumonia and constipation. Walking may also decrease your muscle soreness after surgery. ? No lifting anything that is more that 5 pounds. This may include heavy grocery bags and milk containers, a heavy briefcase or backpack, cat litter or dog food bags, a child, or a vacuum quill cleaner. ? Avoid strenuous activities, such as bicycle riding, jogging, weightlifting, or aerobic exercise, until your doctor says it is okay. ? Do not drive until your follow-up visit after your surgery, or until your doctor says it isokay. ? Avoid taking long car trips for 2 to 4 weeks after surgery. Your neck may become tired and painful from sitting too long in one position. ? You will probably need to take 4 to 6 weeks off from work. It depends on the type of work you do and how you feel. ? You may have sex as soon as you feel able, but avoid positions that put stress on your neck or cause pain. Diet ? You can eat your normal diet. If your stomach is upset, try bland, low-fat foods like plain rice, broiled chicken, toast, and yogurt ? Drink plenty of fluids. If you have kidney, heart, or liver disease and have to limit fluids, talk with your doctor before you increase the amount of fluids you drink. ? You may notice that your bowel movements are not regular right after your surgery. This is common. Try to avoid constipation and straining with bowel movements. You may want to take a fiber supplement every day. If you have not had a bowel movement after a couple of days, ask your doctor about taking a mild laxative. Medicines ? Take pain medicines exactly as directed. 1. If Dr. Rodriguez gave you a prescription medicine for pain, take lt as prescribed. 2. Do not take two or more pain medicines at the same time unless the doctor told you to. Many pain medicines have acetaminophen, which is Tylenol. Too much acetaminophen {Tylenol) can be harmful. 3. If you think your pain pill is making you sick to your stomach: 4. Take your pills after meals (unless your doctor has told you not to). 5. Ask your Dr. for a different pain pill. Incisioncare ? Remove your dressing 48hours after your surgery. Ok to shower and get the incision wet. Do not overtly wash your incision. When done, pad dry, leave open to air thereafter. Avoid creams and ointments directly on your incision. ? Your sutures in the incision will dissolve and fall out on their own. ? Keep the area clean and dry. You may cover it with a gauze bandage if it weeps or rubs against clothing; if you choose to do this, change the dressing everyday. Other instructions ? Use a heating pad, hot water bottle, or gentle massage on your back to reduce stiffness. Avoid putting heat on your incision When should you call for help? ? Call 911 anytime you think you may need emergency care. For example, call if: ? You pass out (lose consciousness). ? You have sudden chest pain and shortness of breath, or you cough upblood. ? You cannot swallow. ? You have severe pain in your neck or back. ? Call your Dr. or seek immediate medical care if: ? You have pain that does not get better after you take pain pills. ? You have loose stitches, or your incision comes open. ? You have blood or fluid draining from the incision. ? You have signs of infection, such as: 1. Increased pain, swelling, warmth, or redness. 2. Red streaks leading from the site. 3. Pus draining from the site. 4. Swollen lymph nodes in your neck or armpits. 5. A fever. ? You have severe pain in your arms. ? You have new or increased weakness or numbness in your arms. ? Watch closely for any changes in your health, and be sure to contact your doctor if: ? You do not have a bowel movement after taking a laxative. Discharge Attestations Time Spent in Discharge Care*: less than 30 min Quality Metrics Clinical Quality Measures [ No reported AMI, CVA or VTE this stay] Coding Level of Care Code Acute Code for Chg Fwd Diagnoses Status post cervical spinal fusion Z98.1
--- NOTE | 2025-02-24 11:33 | PC.OT ---
OT TREATMENT ATTEMPTED. PATIENT DEMONSTRATES INCREASED FINGER FLEXION. NOT WEARING BRACE AT THIS TIME DUE TO IV PLACEMENT. PATIENT REPORTS THAT SHE IS D/C HOME TODAY AND SHOWS THERAPIST PICTURES OF HER BABIES (ANIMALS) . STATES THAT SHE DOES NOT WISH TO PERFORM ADLS AT THIS TIME AND WILL WAIT UNTIL SHE IS D/C HOME.
[2025-02-24 11:44] VITALS: BP 136/58; PULSE 52; RESP 16; TEMP 36.6; O2SAT 96
--- NOTE | 2025-02-24 12:08 | PC.NURSE ---
Discharge Note Patient discharged to home via private vehicle accompanied by friends. 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 Mobile pharmacy medications and/or prescriptions provided. Belongings/home medications returned.
[2025-02-24 12:09] VITALS: BP 136/58; PULSE 52; RESP 16; TEMP 36.6; O2SAT 96
== END 2025-02-24 12:34 | disposition home health service (06) | DRG 451 ==
LOC: MEDSURG 16:45
PROVIDERS: Orthopaedic Surgery; Admitting Provider Orthopaedic Surgery; PCP Family Medicine; Visit Provider Orthopaedic Surgery
PROC: 0RG6071 Fusion of Thoracic Vertebral Joint with Autologous Tissue Substitute, Posterior Approach, Posterior Column, Open Approach (ICD-10-PCS; CPT 22600; principal; 2025-02-21 10:10)
PROC: 0RG6071 Fusion of Thoracic Vertebral Joint with Autologous Tissue Substitute, Posterior Approach, Posterior Column, Open Approach (ICD-10-PCS; CPT 63001; 2025-02-21 10:10)
DX: M48.02 Spinal stenosis, cervical region (principal); G99.2 Myelopathy in diseases classified elsewhere; F33.2 Major depressive disorder, recurrent severe without psychotic features; M54.12 Radiculopathy, cervical region; I10 Essential (primary) hypertension; K21.9 Gastro-esophageal reflux disease without esophagitis; F17.210 Nicotine dependence, cigarettes, uncomplicated; M79.7 Fibromyalgia; F43.12 Post-traumatic stress disorder, chronic; F41.0 Panic disorder [episodic paroxysmal anxiety]; Z96.641 Presence of right artificial hip joint; G43.909 Migraine, unspecified, not intractable, without status migrainosus; R25.2 Cramp and spasm; Z79.82 Long term (current) use of aspirin; Z91.014 Allergy to mammalian meats; Z91.81 History of falling; Z86.73 Personal history of transient ischemic attack (TIA), and cerebral infarction without residual deficits
CPT/HCPCS: 36415; 36416; 51702; 70551; 72040; 72141; 72146; 76000; 80053; 82962; 85025; 86850; 86900; 97110; 97116; 97163; 97167; 97530; C1713; C1776; C9358; J0131; J0330; J0690; J1100; J1171; J1885; J2250; J2270; J2405; J2919; J3010; J3260; J3373; J3490; J7030; J7120; J9999; L3908; P9045

== ENCOUNTER → 2025-03-03 08:37 | Outpatient (BNVA) | payer MEDICARE, MEDICAID, SELFPAY | PROVIDERS: PCP Family Medicine; Visit Provider Orthopaedic Surgery | DX: Z98.890 Other specified postprocedural states (principal); Z98.1 Arthrodesis status | CPT/HCPCS: 99024 ==

== ENCOUNTER → 2025-03-08 10:48 | Outpatient (BNVA) | payer MEDICARE, MEDICAID, SELFPAY | PROVIDERS: PCP Family Medicine; Visit Provider Orthopaedic Surgery | DX: Z98.890 Other specified postprocedural states (principal); Z98.1 Arthrodesis status | CPT/HCPCS: 99024 ==